=== PATIENT | female | born 1985 | race Caucasian/White ===

== ENCOUNTER 2016-12-06 22:33 | Emergency (ER) | payer OTHER ==
[2016-12-06] MEDS ORDERED: Ondansetron ODT 4 MG TAB ONE (23:26)
--- NOTE | 2016-12-06 23:56 | RAD ---
TWO VIEWS LEFT HIP: Date: 12-06-16 History: Left hip pain. Patient states she did the splits about one week ago and has pain since that time. Pain radiates down leg and to the upper back. Positive . FINDINGS: There is no fracture, dislocation, or other osseous abnormality involving the left hip. There is a f aintly calcified structure overlying the right hemipelvis, likely related to head given patien t's history of positive . IMPRESSION: No acute osseous abnormality left hip. POS: [facility]
--- NOTE | 2016-12-06 23:58 | RAD ---
AP PELVIS: Date: 12-06-16 History: Left hip pain. Patient fell into splits about a week ago and has had pain since that time w ith pain radiating down into leg. Patient reports she fell again tonight and heard a crack. Patient has a positive and reports being 24 weeks gestation. FINDINGS: There is no fracture or dislocation seen. No other osseous abnormality. There is a calcified mass li ke structure overlying the right hemipelvis, likely related to head. IMPRESSION: No acute osseous abnormality. POS: [facility]
== END 2016-12-07 00:08 | disposition home or self-care (01) ==
LOC: ERS 22:33
DX: O9A.212 Injury, poisoning and certain other consequences of external causes complicating pregnancy, second trimester (principal); S76.012A Strain of muscle, fascia and tendon of left hip, initial encounter; O99.342 Other mental disorders complicating pregnancy, second trimester; F32.9 Major depressive disorder, single episode, unspecified; F41.9 Anxiety disorder, unspecified; Z87.891 Personal history of nicotine dependence; Z79.899 Other long term (current) drug therapy; Z79.52 Long term (current) use of systemic steroids; Z3A.24 24 weeks gestation of pregnancy; W01.0XXA Fall on same level from slipping, tripping and stumbling without subsequent striking against object, initial encounter
CPT/HCPCS: 72170; 96372; J2270; Q0162

== ENCOUNTER 2017-01-03 10:33 | Day surgery (SDC) | payer OTHER ==
[2017-01-03] MEDS ORDERED: Acetaminophen 500 MG TAB PO PRN (11:37)
[2017-01-03] MEDS ORDERED: hydrOXYzine 25 MG TAB PO PRN (11:37)
[2017-01-03] MEDS ORDERED: hydrOXYzine 25 MG TAB PO SCH (11:45)
[2017-01-03] MEDS ORDERED: Acetaminophen 500 MG TAB PO SCH (11:45)
--- NOTE | 2017-01-03 11:45 | PDOC.LDHP ---
Labor and Delivery H&P Chief complaint: abdominal pain HPI: 31 yo @ 28.3 c/w LMP with pmhx of substance abuse, laura's disease, and steroid induced abby's disease presents with abdominal pain, bilateral lower right and left quadrant and flank pain since Tuesday. Pt said pain acutely worsened over the pain several days. She also stated she has hx of nephrolithiasis, one of which required a stent. Pt states she has a urology appointment next week but the pain was too severe to wait. She denies dysuria but endorses frequency. She also endorses some blood in her urine last week. States last sexual intercourse was 4 days ago. She used to see Dr. Salvador and recently transferred care to [facility] on December 23. She did not receive a dating ultrasound. Per patient, anatomy scan was normal. She does endorse decreased movement over the past few days. 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 13, monthly menstruation, hx of abnormal pap s/p LEEP 2001 No hx of STI's Current complications: other (Laura's Disease, Substance abuse on clonazepam taper, Steroid induced [place]'s Disease, hx of nephrolithiasis s/p stent placement.) Abnormal US findings: Yes (Vasa previa and placenta previa) Current medications: none (omeprazole 20mg, hydroxyzine 25mg , hydrocortizone 10mg, fludocortizone .1mg, clonazepam .5mg taper, prednisone 10mg, amitryptiline 100mg daiy, zofran 4mg, solu-cortef prn crisis), other Previous surgical history: other (lithotrypsy with stent placement, surgical exploration for ectopic ) Social history: other (substance abuse on clonazepam taper) - Physical Exam Vital signs reviewed and normal: yes Heart: other (tachycardic) Lungs: CTAB Abdomen: gravid (tender to palpation in right and left lower quadrant; CVA tenderness on the left) Extremeties: no edema FHT: category 1 - Assessment 31 yo with pmhx of nephrolithiasis presents with lower abdominal pain and left CVA tenderness. Plan: 1.) Nephrolithiasis vs Pyelonephritis- Renal US and urology consult if indicated UA and cx UDS CBC and CMP Hydroxyzine and tylenol for pain 2.) Care-Pt did not get a dating ultrasound but does report a normal anatomy scan; endorses decreased movement today; no record of PNC labs BPP/NST Anatomy Scan Will attempt to get records from prior physician, if not will order: HIV, RPR, HepBs Ag, Rubella, Blood type and screen, Rh, and antibody - Plan Plan: observation in L&D (see above) <Alxeia Estrada - Last Filed: 01/03/17 12:07> <Maria Loredo - Last Filed: 01/03/17 14:03> Allergies/Adverse Reactions: Allergies Allergy/AdvReac Type Severity Reaction Status Date / Time bupropion [From Wellbutrin] Allergy Verified 01/27/16 02:00 metoclopramide [From Reglan] Allergy Verified 01/03/17 11:48 prochlorperazine Allergy Verified 01/03/17 11:49 [From Compazine] Attending Addendum - Attending Addendum I personally evaluated the patient and discussed the management with Dr. Bryant I agree with the History, Examination, Assessment and Plan documented above with any addition or exceptions noted below. 31 yo female at 28.3 wks by sono (per patient) presents for evaluation of left sided back pain and abdominal pain. Patient states pain feels like a kidney stone. Has passed several in the past. Denies fever, chills, dysuria, hematuria. Reports a past history of microscopic hematuria since childhood with unknown cause. Has been seen at [facility] with 2 negative urine cultures. Awaiting records from Dr. Salvador's office. Repeat sono performed today. Results pending. Concern for low lying placenta vs vasa previa. BPP 8/8. +FM noted by patient. Glucose WNL. A1c WNL. Mild leukocytosis. Awaiting baseline from records. UA positive for leuk , bacteria, and blood. Urine culture pending. Will likely treat for UTI vs pyelo. Awaiting renal/pelvic sono to evalutate for stones, etc. Hx of [place]'s dz. Stable. Borderline potassium. Follows up with Dr. Bundy. Last OV on 12/27/16. Hx of substance use/abuse. UDS positive for known medications. Tobacco use. Awaiting appointment with M on 01/12/17. Continue to monitor. PO hydration. PO pain meds. Awaiting results. Request records. Tomy <Maria Loredo - Last Filed: 01/03/17 14:03>
[2017-01-03 12:31] LABS: Bilirubin Negative (Negative); Blood, Urine Moderate (Negative); Glucose, Urine (Dipstick) Negative (Negative); Ketone, Urine Negative (Negative); Nitrite Negative (Negative); Protein, Urine (Dipstick) Negative (Neg-Trace); Urobilinogen 0.2 mg/dL (0.2-1.0)
[2017-01-03 12:36] LABS: Bacteria/HPF 1+ HPF (None Seen); Hyaline Casts/LPF 0-3 HYALINE CAST LPF (0-3 Hyaline); RBC/HPF 21-50 HPF (0-3); Squamous Epithelial 0-3 HPF (0-3); WBC/HPF 0-3 HPF (0-3)
[2017-01-03 12:40] LABS: Amphetamine Not Detected (NotDetected); Methadone Not Detected (NotDetected); Methamphetamine Not Detected (NotDetected)
[2017-01-03 12:56] LABS: #Eosinphils 0.1 thou/uL (0.0-0.7); #Lymphocytes 1.9 thou/uL (1.20-3.40); #Neutrophils 13.6 thou/uL (1.40-6.50); %Eosinophils 0.7 % (0.0-10.0); %Lymphocytes 11.5 % (21.0-51.0); %Monocytes 6.2 % (0.0-10.0); Hematocrit 31.2 % (36.0-47.0); Mean Platelet Volume 6.6 fL (7.4-10.4); Red Blood Cell (RBC) Count 3.56 mill/uL (4.20-5.40); White Blood Cell (WBC) Count 16.6 thou/uL (4.8-10.8)
[2017-01-03 12:59] LABS: Hemoglobin A1c 5.1 % (4.0-6.0)
[2017-01-03 13:13] LABS: ALT (SGPT) 9 U/L (8-55); AST (SGOT) 10 U/L (5-34); Alkaline Phosphatase 72 U/L (40-150); Anion Gap 12 mmol/L (10-20); BUN (Urea Nitrogen) 5 mg/dL (7.0-18.7); Bilirubin, Total 0.2 mg/dL (0.2-1.2); Calc. Creatinine Clearance 0 mL/min (70-130); Calcium 8.6 mg/dL (7.8-10.44); Carbon Dioxide 23 mmol/L (22-29); Chloride 107 mmol/L (98-107); Estimated GFR-MDRD Greater than 90; Globulin 2.6 g/dL (2.4-3.5); Protein, Total 5.6 g/dL (6.0-8.3)
--- NOTE | 2017-01-03 15:55 | ULT ---
BILATERAL RENAL ULTRASOUND: Date: 01/03/17 HISTORY: 31-year-old female with severe back pain, 28 weeks . History of renal stones. FINDINGS: The right kidney measures 14.0 cm in length and the left kidney measures 12.5 cm in length. No focal mass or hydronephrosis is seen on either side. No shadowing calculi are identified. Cortical echoge nicity and thickness is normal. Urinary bladder is grossly unremarkable. IMPRESSION: Unremarkable exam. POS: [facility]
--- NOTE | 2017-01-03 15:59 | ULT ---
OB ULTRASOUND ULTRASOUND BIOPHYSICAL PROFILE: Date: 01/03/17 HISTORY: Incomplete care. FINDINGS: A single live intrauterine gestation is seen with measurements corresponding to an estimated gestati onal age of 28 weeks/0 days and LEXI at 03/28/17. The estimated weight measures 1140 gm, or 2 l bs and 8 oz. measurements are as follows: BPD: 7.06 cm, 28 weeks/2 days HC: 25.97 cm, 28 weeks/2 days AC: 23.64 cm, 28 weeks/0 days FL: 5.16 cm, 27 weeks/4 days heart rate measures 144 beats/minute. ESME measures 10.4 cm. Placenta is anteriorly located without evidence of placenta previa. Three vessel cord, cord insertion, kidneys, bladder, stomach, four chamber heart, lateral vent ricles, cerebellum, spine, upper/lower extremities visualized. No definite anomalies seen. There is normal tone, breathing, movements, and amniotic fluid. IMPRESSION: 1. Single live intrauterine gestation of 28 weeks/0 days and LEXI at 03/28/17. 2. Ultrasound biophysical profile score is 8 out of 8. POS: [facility]
[2017-01-03] MEDS ORDERED: cefTRIAXone\\ROCEPHIN 1 GM VIAL IM SCH (16:30)
[2017-01-03] MEDS ORDERED: Lidocaine 1% (PF) 30 ML VIAL ONE (16:39)
[2017-01-03] MEDS ORDERED: Cephalexin 250 MG CAP PO SCH (21:00)
== END 2017-01-03 17:15 | disposition home or self-care (01) ==
LOC: L&D/OP 10:33
PROVIDERS: ATTEND Student in an Organized Health Care Education/Training Program
DX: O99.89 Other specified diseases and conditions complicating pregnancy, childbirth and the puerperium (principal); R10.9 Unspecified abdominal pain; M54.9 Dorsalgia, unspecified; Z3A.28 28 weeks gestation of pregnancy; Z79.2 Long term (current) use of antibiotics; Z88.8 Allergy status to other drugs, medicaments and biological substances
CPT/HCPCS: 36415; 76770; 76805; 76815; 76819; 80053; 80306; 81003; 81015; 83036; 85025; 87086; J0696; J2001

== ENCOUNTER 2017-01-15 11:15 | Day surgery (SDC) | payer OTHER ==
[2017-01-15 13:15] VITALS: BMI 25.8
[2017-01-15 13:37] LABS: Amphetamine Not Detected (NotDetected); Methadone Not Detected (NotDetected); Methamphetamine Not Detected (NotDetected)
[2017-01-15 13:39] LABS: Bilirubin Negative (Negative); Blood, Urine Small (Negative); Glucose, Urine (Dipstick) Negative (Negative); Ketone, Urine Negative (Negative); Nitrite Negative (Negative); Protein, Urine (Dipstick) Negative (Neg-Trace); Urobilinogen 0.2 mg/dL (0.2-1.0)
[2017-01-15 13:41] LABS: Bacteria/HPF 2+ HPF (None Seen); Hyaline Casts/LPF 0-3 HYALINE CAST LPF (0-3 Hyaline); Squamous Epithelial 0-3 HPF (0-3); WBC/HPF 0-3 HPF (0-3)
[2017-01-15] MEDS ORDERED: Ondansetron ODT 4 MG TAB PO PRN (13:42)
[2017-01-15] MEDS ORDERED: Acetaminophen 500 MG TAB PO SCH (13:45)
--- NOTE | 2017-01-15 13:56 | PDOC.LDHP ---
Labor and Delivery H&P Chief complaint: contractions, other (headache that feels like her migraine headaches, swelling in her hands and feet, diarrhea, and vision changes) HPI: 31 yo @ 30.0 by LMP(06/19/16)/19.2 week sono with LEXI 03/26/17 presents with a headache and diarrhea for one day. Pt states she gets migraine headaches and this feels similar. She also states that her diarrhea is watery. Pt endorses blurry vision and black spots in her vision. [facility] where she reports an elevated pressure of 150/90s, and had one elevated blood pressure per Dr. Salvador's records that was in the 150s @ 19 weeks. Pt states she was told by the doctors in clinic that she needed to come to the hospital for a preeclampsia workup. Pt reports that she couldn't come until today because she had to take care of her kids. She also endorses decreased movement over the past 2 days. 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13, monthly menstruation, hx of abnormal pap s/p LEEP 2001 No hx of STI's Current complications: other (Inder's Disease, Substance abuse on clonazepam taper, Steroid induced Link's Disease, hx of nephrolithiasis s/p stent placement.) Current medications: none (omeprazole 20mg, hydroxyzine 25mg , hydrocortizone 10mg, fludocortizone .1mg, clonazepam .5mg taper, prednisone 10mg, amitryptiline 100mg daiy, zofran 4mg, solu-cortef prn crisis), other Previous surgical history: other (lithotrypsy with stent placement, surgical exploration for ectopic ) Social history: other (substance abuse on clonazepam taper) Prior Physicians who managed pt: Dr. Salvador: SHAY Bundy (medical registrar at [facility]) Dr. España PCP Current gestational age (weeks): 30 Due date: 01/13/17 Dating criteria: last menstrual period, second trimester ultrasound (19.2wk sono ) Grav: 7 Para: 4 ([id number]) Current complications: other (appears to have chronic hypertension based on review of records from Dr. Salvador and [facility].) Abnormal US findings: No Past Medical History: [place]'s Disease Suspected Chronic Hypertension Current medications: other (see above) Previous surgical history: other (see above) Social history: other - Physical Exam Vital signs reviewed and normal: yes General: NAD, resting Heart: RRR Lungs: CTAB Abdomen: NTTP Extremeties: trace edema FHT: category 2, acceleration absent, variable decelerations, variability present (minimal) [place] contractions every: 8 minutes (only 2 contractions) - Assessment Chronic Hypertension with concern for superimposed preeclampsia with severe features. - Plan Plan: admit to L&D -: Plan: 1.)Chronic Hypertension with concern for superimposed preeclampsia: Urine protein to creatine ratio UA and culture Uric acid CBC and CMP 2.)Headache, likely a migraine -Tylenol -Zofran 3.)Decreased movement- BPP/NST: BPP 8/8 ESME 14 NST: category 2 strip 4.)Susbstance abuse- UDS Alcohol level 5.)New vaginal discharge -VP3 -GC/Chlamydia -UA and culture <Alexia Estrada - Last Filed: 01/15/17 16:03> <Mane Blas - Last Filed: 01/16/17 08:40> Allergies/Adverse Reactions: Allergies Allergy/AdvReac Type Severity Reaction Status Date / Time bupropion [From Wellbutrin] Allergy Verified 01/15/17 13:09 metoclopramide [From Reglan] Allergy Verified 01/15/17 13:09 prochlorperazine Allergy Verified 01/15/17 13:10 [From Compazine] Attending Addendum - Attending Addendum I personally evaluated the patient and discussed the management with Dr. Estrada. I agree with the History, Examination, Assessment and Plan documented above with any addition or exceptions noted below. <Mane Blas - Last Filed: 01/16/17 08:40>
[2017-01-15] MEDS ORDERED: Hydrocortisone 10 mg Tablet PO SCH (14:00)
[2017-01-15 14:18] LABS: #Eosinphils 0.2 thou/uL (0.0-0.7); #Lymphocytes 1.7 thou/uL (1.20-3.40); #Neutrophils 15.4 thou/uL (1.40-6.50); %Basophils 0.1 % (0.0-1.0); %Eosinophils 1.2 % (0.0-10.0); %Lymphocytes 9.1 % (21.0-51.0); %Monocytes 5.4 % (0.0-10.0); Hematocrit 29.9 % (36.0-47.0); Mean Platelet Volume 6.8 fL (7.4-10.4); Red Blood Cell (RBC) Count 3.41 mill/uL (4.20-5.40); White Blood Cell (WBC) Count 18.2 thou/uL (4.8-10.8)
--- NOTE | 2017-01-15 14:44 | ULT ---
SONOGRAPHIC BIOPHYSICAL PROFILE SCORE: OBSTETRIC SONOGRAM LIMITED: HISTORY: Decreased movement. FINDINGS: Good tone and breathing movements are demonstrated. Good gross movement. Amniotic fluid inde x is 14. Multiple transabdominal sonographic views of the gravid uterus show a single intrauterine gestation in a cephalic presentation. The cervix is closed and 3.9 cm in length. Advanced ag e limits anatomic detail. Grade 3 placenta is anterior. Four chamber heart shows motion at 160 amado ts per minute. IMPRESSION: Sonographic biophysical profile score is 8/8. POS: [facility]
[2017-01-15 14:48] LABS: ALT (SGPT) 11 U/L (8-55); AST (SGOT) 10 U/L (5-34); Alkaline Phosphatase 88 U/L (40-150); Anion Gap 15 mmol/L (10-20); BUN (Urea Nitrogen) 8 mg/dL (7.0-18.7); Bilirubin, Total Less than 0.2 mg/dL (0.2-1.2); Calc. Creatinine Clearance 176 mL/min (70-130); Calcium 8.1 mg/dL (7.8-10.44); Carbon Dioxide 20 mmol/L (22-29); Chloride 108 mmol/L (98-107); Estimated GFR-MDRD Greater than 90; Globulin 2.5 g/dL (2.4-3.5); Protein, Total 5.3 g/dL (6.0-8.3); Uric Acid 2.1 mg/dL (2.6-6.0)
[2017-01-15] MEDS ORDERED: diphenhydrAMINE 25 MG in Sodium Chloride 0.9% 50 ML IVPB SCH (15:00)
[2017-01-15] MEDS ORDERED: Fluconazole 100 MG TAB PO SCH (16:30)
--- NOTE | 2017-01-15 20:46 | PDOC.EVN ---
Event Note - Event Note Event Note: Patient's headache resolved with tylenol, relaxation, and dimmed lights. She states the headache feels the exact same as her prior migraines. Preeclampsia workup was negative. Patient's BP remained wnl range. Patient's pulse decreased to 80's after administration of 3L LR's. Encouraged patient to stay hydrated. FHR prior to discharge in the 150's and strip was category II with moderate variability. Urinalysis was done, however, it was clean catch and there is possibility it may have been contaminated. It did show 2+ bacteria and moderate LE's. Patient follows with urology for recurrent UTI's, so she plans to follow with the within the next couple of days as outpatient. Lab results were provided to patient. GC/C pending. Will call patient if results positive. Patient also tested positive for candidal vaginitis. She was treated with fluconazole. Recommend patient be seen by MFM to discuss tapering of benzo's. Patient stable upon discharge with resolution of symptoms.
[2017-01-16] MEDS ORDERED: Fluconazole 100 MG TAB PO SCH (09:00)
[2017-01-16] MEDS ORDERED: FLU VACC QS2017-18 36 mo. & older 0.5 ML SYRINGE IM ONE (09:00)
== END 2017-01-15 17:07 | disposition home or self-care (01) ==
LOC: L&D/OP 11:15
PROVIDERS: ATTEND Student in an Organized Health Care Education/Training Program
DX: O99.89 Other specified diseases and conditions complicating pregnancy, childbirth and the puerperium (principal); R51 Headache; R19.7 Diarrhea, unspecified; R03.0 Elevated blood-pressure reading, without diagnosis of hypertension; O36.8120 Decreased fetal movements, second trimester, not applicable or unspecified; E27.1 Primary adrenocortical insufficiency; O99.282 Endocrine, nutritional and metabolic diseases complicating pregnancy, second trimester; E24.2 Drug-induced Cushing's syndrome; T38.0X5A Adverse effect of glucocorticoids and synthetic analogues, initial encounter; O99.322 Drug use complicating pregnancy, second trimester; Z3A.19 19 weeks gestation of pregnancy; Z79.52 Long term (current) use of systemic steroids; Z79.899 Other long term (current) drug therapy; Z88.8 Allergy status to other drugs, medicaments and biological substances; Z96.0 Presence of urogenital implants; Z98.890 Other specified postprocedural states; Z87.59 Personal history of other complications of pregnancy, childbirth and the puerperium; Z87.891 Personal history of nicotine dependence
CPT/HCPCS: 36415; 59025; 76819; 80053; 80306; 81001; 82570; 84156; 84550; 85025; 87086; 87480; 87491; 87510; 87591; 87660; 96360; 96361; J1200; J7050; Q0162

== ENCOUNTER 2017-07-21 21:27 | Emergency (ER) | payer OTHER | END 2017-07-21 23:43 | disposition left against medical advice (07) | LOC: ERS 21:27 | DX: Z53.21 Procedure and treatment not carried out due to patient leaving prior to being seen by health care provider (principal) ==

== ENCOUNTER 2017-07-22 10:05 | Emergency (ER) | payer OTHER | END 2017-07-22 11:25 | LOC: ERS 10:05 | DX: Z53.21 Procedure and treatment not carried out due to patient leaving prior to being seen by health care provider (principal) ==

== ENCOUNTER 2017-09-04 21:32 | Emergency (ER) | payer OTHER, SELFPAY ==
[2017-09-04] MEDS ORDERED: Ketorolac Tromethamine 60 MG/2 ML VIAL ONE (22:38)
== END 2017-09-04 22:56 | disposition home or self-care (01) ==
LOC: ERS 21:32
DX: M54.42 Lumbago with sciatica, left side (principal); M54.41 Lumbago with sciatica, right side; F41.9 Anxiety disorder, unspecified; F17.210 Nicotine dependence, cigarettes, uncomplicated; G43.909 Migraine, unspecified, not intractable, without status migrainosus; E27.1 Primary adrenocortical insufficiency; N18.9 Chronic kidney disease, unspecified; Z79.899 Other long term (current) drug therapy
CPT/HCPCS: 96372; J1885

== ENCOUNTER 2017-10-26 20:20 | Emergency (ER) | payer MEDICAID, SELFPAY ==
[2017-10-26] MEDS ORDERED: Meclizine HCl 25 MG TAB ONE (21:40)
[2017-10-26] MEDS ORDERED: Acetaminophen 500 MG TAB ONE (21:40)
[2017-10-26] MEDS ORDERED: Ondansetron ODT 4 MG TAB ONE (21:40)
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
[2017-10-26 22:00] LABS: #Lymphocytes 1.8 thou/uL (1.20-3.40); #Monocytes 0.4 thou/uL (0.11-0.59); #Neutrophils 2.5 thou/uL (1.40-6.50); %Basophils 0.3 % (0.0-1.0); %Eosinophils 0.8 % (0.0-10.0); %Lymphocytes 38.2 % (21.0-51.0); %Monocytes 7.8 % (0.0-10.0); %Neutrophils 52.8 % (42.0-75.0); Hemoglobin 14.8 g/dL (12.0-16.0); Mean Corpuscular HGB CONC 35.1 g/dL (32.0-36.0); Mean Corpuscular Hemoglobin 31.5 pg (27.0-31.0); Mean Corpuscular Volume 89.7 fL (78.0-98.0); Mean Platelet Volume 7.8 fL (7.4-10.4); Platelet Count 162 thou/uL (130-400); RBC Distribution Width 12.2 % (11.5-14.5); Red Blood Cell (RBC) Count 4.69 mill/uL (4.20-5.40); White Blood Cell (WBC) Count 4.8 thou/uL (4.8-10.8)
[2017-10-26 22:20] LABS: ALT (SGPT) 11 U/L (8-55); AST (SGOT) 13 U/L (5-34); Albumin 4.2 g/dL (3.5-5.0); Alkaline Phosphatase 72 U/L (40-150); Anion Gap 12 mmol/L (10-20); BUN (Urea Nitrogen) 10 mg/dL (7.0-18.7); Bilirubin, Total 0.9 mg/dL (0.2-1.2); Calc. Creatinine Clearance 0 mL/min (70-130); Calcium 9.1 mg/dL (7.8-10.44); Carbon Dioxide 22 mmol/L (22-29); Chloride 110 mmol/L (98-107); Estimated GFR-MDRD 81; Globulin 2.4 g/dL (2.4-3.5); Glucose 89 mg/dL (70-105); Magnesium 1.7 mg/dL (1.6-2.6); Potassium 3.4 mmol/L (3.5-5.1); Protein, Total 6.6 g/dL (6.0-8.3); Sodium 141 mmol/L (136-145)
[2017-10-26 22:48] LABS: Bilirubin Small (Negative); Blood, Urine Small (Negative); Clarity CLOUDY (Clear); Glucose, Urine (Dipstick) Negative (Negative); Leukocyte Small (Negative); Nitrite Negative (Negative); Pregnancy Test - Urine (BHCG) Negative (Negative); Pregu Control Background? CLEAR/WHITE (CLR/WHITE); Pregu Control Bar Appear? YES (CONTROL BAR); Protein, Urine (Dipstick) 30 mg/dL (Neg-Trace); Specific Gravity 1.033 (1.002-1.036); Specific Gravity, Urine 1.023 (1.002-1.036)
[2017-10-26 22:49] LABS: Bacteria/HPF 3+ HPF (None Seen); WBC/HPF 21-50 HPF (0-3)
[2017-10-26 22:50] LABS: Pathc Cast-AUWi Flag 9.44 (0-2.49)
[2017-10-26 22:51] LABS: Hyaline Casts/LPF 0-3 HYALINE CAST LPF (0-3 Hyaline)
[2017-10-26] MEDS ORDERED: Ketorolac Tromethamine 30 MG/ML VIAL ONE (22:56)
[2017-10-26] MEDS ORDERED: Potassium Chloride 20 MEQ TAB ONE (22:56)
[2017-10-26] MEDS ORDERED: cefTRIAXone\\ROCEPHIN 1 GM VIAL ONE (23:20)
[2017-10-26] MEDS ORDERED: Cyclobenzaprine 10 MG TAB ONE (23:45)
[2017-10-26] MEDS ORDERED: methylPREDNISolone Sod Succ/PF 125 MG/2 ML VIAL ONE (23:45)
== END 2017-10-27 00:20 | disposition home or self-care (01) ==
LOC: ERS 20:20
DX: R55 Syncope and collapse (principal); E27.1 Primary adrenocortical insufficiency; N39.0 Urinary tract infection, site not specified; G43.909 Migraine, unspecified, not intractable, without status migrainosus; Z87.891 Personal history of nicotine dependence; Z79.899 Other long term (current) drug therapy
CPT/HCPCS: 36415; 71046; 80053; 81003; 81015; 81025; 83735; 84100; 85025; 93005; 96361; 96365; 96375; J0696; J1885; J2930; Q0162

== ENCOUNTER 2018-01-26 22:45 | Observation (INO) | payer OTHER, SELFPAY ==
[2018-01-26 23:40] LABS: #Lymphocytes 0.7 thou/uL (1.20-3.40); #Monocytes 0.2 thou/uL (0.11-0.59); #Neutrophils 6.3 thou/uL (1.40-6.50); %Basophils 0.1 % (0.0-1.0); %Eosinophils 0.1 % (0.0-10.0); %Lymphocytes 10.4 % (21.0-51.0); %Monocytes 2.2 % (0.0-10.0); %Neutrophils 87.2 % (42.0-75.0); Hemoglobin 15.3 g/dL (12.0-16.0); Mean Corpuscular HGB CONC 34.5 g/dL (32.0-36.0); Mean Corpuscular Hemoglobin 31.4 pg (27.0-31.0); Mean Corpuscular Volume 90.9 fL (78.0-98.0); Mean Platelet Volume 7.2 fL (7.4-10.4); Platelet Count 235 thou/uL (130-400); RBC Distribution Width 12.2 % (11.5-14.5); Red Blood Cell (RBC) Count 4.87 mill/uL (4.20-5.40); White Blood Cell (WBC) Count 7.2 thou/uL (4.8-10.8)
[2018-01-26] MEDS ORDERED: Lorazepam 2 MG/ML VIAL ONE (23:45)
[2018-01-26 23:53] LABS: BHCG - Serum Negative (NEGATIVE); Pregs Control Background? CLEAR/WHITE (CLR/WHITE); Pregs Control Bar Appear? YES (CONTROL BAR)
[2018-01-27 00:04] LABS: ALT (SGPT) 12 U/L (8-55); AST (SGOT) 12 U/L (5-34); Albumin 4.7 g/dL (3.5-5.0); Alkaline Phosphatase 75 U/L (40-150); Anion Gap 13 mmol/L (10-20); BUN (Urea Nitrogen) 8 mg/dL (7.0-18.7); Bilirubin, Total 0.5 mg/dL (0.2-1.2); Calc. Creatinine Clearance 0 mL/min (70-130); Calcium 9.5 mg/dL (7.8-10.44); Carbon Dioxide 21 mmol/L (22-29); Chloride 108 mmol/L (98-107); Estimated GFR-MDRD Greater than 90; Globulin 2.7 g/dL (2.4-3.5); Glucose 125 mg/dL (70-105); Potassium 3.8 mmol/L (3.5-5.1); Protein, Total 7.4 g/dL (6.0-8.3); Sodium 138 mmol/L (136-145)
[2018-01-27] MEDS ORDERED: Ketorolac Tromethamine 30 MG/ML VIAL ONE (00:42)
[2018-01-27 00:43] LABS: Bilirubin Negative (Negative); Blood, Urine Large (Negative); Clarity CLOUDY (Clear); Glucose, Urine (Dipstick) Negative (Negative); Leukocyte Trace (Negative); Nitrite Negative (Negative); Protein, Urine (Dipstick) Trace mg/dL (Neg-Trace); Specific Gravity, Urine 1.021 (1.002-1.036); Urobilinogen 0.2 mg/dL (0.2-1.0); pH, Urine 6.5 (5.0-9.0)
[2018-01-27 00:45] LABS: Bacteria/HPF Rare-Few HPF (None Seen); Hyaline Casts/LPF 0-3 HYALINE CAST LPF (0-3 Hyaline); Pathc Cast-AUWi Flag 0.29 (0-2.49); RBC/HPF GREATER THAN 50-TNTC HPF (0-3)
[2018-01-27] MEDS ORDERED: levETIRAcetam In NaCl (Iso-Os) 1,000 MG in Premix Bag 1 BAG IVPB SCH (01:00)
[2018-01-27] MEDS ORDERED: RIZATRIPTAN BENZOATE 5 MG PO PRN (02:45)
[2018-01-27] MEDS ORDERED: SUMAtriptan Succinate 50 MG TAB PO PRN (03:04)
[2018-01-27] MEDS ORDERED: Lorazepam 2 MG/ML VIAL SLOW IVP PRN ×2 (03:30→04:31)
[2018-01-27 03:42] VITALS: BMI 19.3
--- NOTE | 2018-01-27 03:50 | PDOC.FPRHP ---
- History of Present Illness Chief Complaint: Seizure vs. syncope History of Present Illness: This is a 32 yo female with a pmh of Bipolar type 1, migraines, addisons disease who presents to the ED with a cc of seizure like activity. Pt. states that she has started having episodes with loss of consciousness. She reports 3 episodes that were witnessed and reports she falls downs and shakes. Following these episodes, she appears confused to family and often goes to lay down. The episodes last for about 1 minute. She denies loss of bowel or bladder control but did bite her lip. She reports these episodes starting in the last 2-3 weeks. She reports landing on her back on one occasion. She also showed me a bruise on her hand she got when she caught herself prior to one of her episodes. She reports dizziness as well. She believes that these episodes are related to her addisons and wonders if it is due to poor steroid control. ED Course: Rocephin 1g, keppra 1g, toradol 30 mg, ativan 1mg - Allergies/Adverse Reactions Allergies Allergy/AdvReac Type Severity Reaction Status Date / Time bupropion [From Wellbutrin] Allergy Verified 01/27/18 02:46 metoclopramide [From Reglan] Allergy Verified 01/27/18 02:46 prochlorperazine Allergy Verified 01/27/18 02:46 [From Compazine] - Home Medications Medication Instructions Recorded Confirmed Type Hydrocortisone [Cortef] 10 mg PO BID 01/15/17 01/27/18 History Ferrous Fumarate [Ferretts] 325 mg PO DAILY 01/27/18 01/27/18 History Lamotrigine [lamoTRIgine] 200 mg PO DAILY 01/27/18 01/27/18 History Lurasidone [Latuda] 20 mg PO DAILY 01/27/18 01/27/18 History Rizatriptan Benzoate [Rizatriptan] 5 mg PO Q2HR PRN 01/27/18 01/27/18 History - History PMHx: Addisons??, PSHx: Exploratory lap for possible ectopic in 2017, lithotripsy 2017 FHx: Hep c, Borderline personality disorder, schizophrenia Social: Denies CORTEZ, abused alprazolam in the past - Review of Systems General: reports: fatigue. denies: fever/chills, weight/appetite/sleep changes , night sweats Eyes: denies: eye pain, vision changes ENT: denies: nasal congestion, rhinorrhea Respiratory: denies: cough, congestion, shortness of breath Cardiovascular: denies: chest pain, palpitation, edema Gastrointestinal: reports: nausea, vomiting, abdominal pain Genitourinary: denies: incontinence Skin: denies: rashes, lesions Musculoskeletal: reports: pain, tenderness (Her back primarily) Neurological: reports: syncope, seizure (Questionable). denies: numbness Psychological: reports: anxiety, depression - Vital signs BP: 112/83 HR: 81 RR: 14 Tmax:97.7 Pox: 99% on ra Wt: 56.7 kg - Physical Exam Constitutional: NAD, awake, alert and oriented, well developed HEENT: normocephalic and atraumatic, PERRLA, EOMI, conjunctiva clear, MMM Neck: supple, FROM, trachea midline Chest: no-tender to palpation, no lesions Heart: RRR, normal S1/S2, no murmurs/rubs/gallops Lungs: CTAB, no respiratory distress, good air movement Abdomen: soft, bowel sounds present, no masses/distention, other (tenderness to palpation of left upper and lower region, no rebound or gaurding) Musculoskeletal: ROM grossly normal, other (pain with palpation of lower back) Neurological: no focal deficit, CN II-XII intact Skin: no rash/lesions, good turgor, capillary refill <2 seconds Heme/Lymphatic: no unusual bruising or bleeding Psychiatric: normal mood and affect FMR H&P: Results - Labs Result Diagrams: 01/26/18 23:25 01/26/18 23:25 Lab results: WBC 7.2 thou/uL (4.8-10.8) 01/26/18 23:25 Hgb 15.3 g/dL (12.0-16.0) 01/26/18 23:25 Hct 44.3 % (36.0-47.0) 01/26/18 23:25 MCV 90.9 fL (78.0-98.0) 01/26/18 23:25 Plt Count 235 thou/uL (130-400) 01/26/18 23:25 Neutrophils % 87.2 % (42.0-75.0) H 01/26/18 23:25 Sodium 138 mmol/L (136-145) 01/26/18 23:25 Potassium 3.8 mmol/L (3.5-5.1) 01/26/18 23:25 Chloride 108 mmol/L (98-107) H 01/26/18 23:25 Carbon Dioxide 21 mmol/L (22-29) L 01/26/18 23:25 BUN 8 mg/dL (7.0-18.7) 01/26/18 23:25 Creatinine 0.71 mg/dL (0.6-1.1) 01/26/18 23:25 Glucose 125 mg/dL (70-105) H 01/26/18 23:25 Calcium 9.5 mg/dL (7.8-10.44) 01/26/18 23:25 Total Bilirubin 0.5 mg/dL (0.2-1.2) 01/26/18 23:25 AST 12 U/L (5-34) 01/26/18 23:25 ALT 12 U/L (8-55) 01/26/18 23:25 Alkaline Phosphatase 75 U/L (40-150) 01/26/18 23:25 Serum Total Protein 7.4 g/dL (6.0-8.3) 01/26/18 23:25 Albumin 4.7 g/dL (3.5-5.0) 01/26/18 23:25 Urine Ketones Trace mg/dL (Negative) H 01/27/18 00:23 Urine Blood Large (Negative) H 01/27/18 00:23 Urine Nitrite Negative (Negative) 01/27/18 00:23 Ur Leukocyte Esterase Trace (Negative) H 01/27/18 00:23 Urine RBC GREATER THAN 50-TNTC HPF (0-3) H 01/27/18 00:23 Urine WBC 7-10 HPF (0-3) H 01/27/18 00:23 Ur Squamous Epith Cells 11-20 HPF (0-3) H 01/27/18 00:23 Urine Bacteria Rare-Few HPF (None Seen) 01/27/18 00:23 - Radiology Interpretation Chest x-ray Status: image reviewed by me (No acute cardiopulmonary processes, no grossly abnormal bony processes) FMR H&P: A/P - Problem List (1) Foard's disease Current Visit: Yes Status: Acute Code(s): E27.1 - PRIMARY ADRENOCORTICAL INSUFFICIENCY (2) Syncopal episodes Current Visit: Yes Status: Acute Code(s): R55 - SYNCOPE AND COLLAPSE (3) Bipolar 1 disorder Current Visit: Yes Status: Acute Code(s): F31.9 - BIPOLAR DISORDER, UNSPECIFIED (4) Migraine Current Visit: Yes Status: Acute Code(s): G43.909 - MIGRAINE, UNSP, NOT INTRACTABLE, WITHOUT STATUS MIGRAINOSUS - Plan This is a 32 yo female with a pmh of Foard's, bipolar 1, and migraines Syncope vs. Seizure -Admit to stroke obs -pt given keppra and ativan in ed -Obtain orthostatics -Obtain prolactin level if pt. has a seizure Foard's disease -Continue current regiment of hydrocortisone 10mg BID -contact communications editor Dr. Bundy regarding diagnosis and treatment plan -Per Dr. Loredo's latest note, pt has not followed up with Dr. Bundy to be reevaluated for laura's after her last Bipolar 1 -Continue home latuda and lamotrigine Migraines -continue home triptan Acute pain related to syncope -Hansa tylenol -PRN tramadol -Hx of xanax abuse, use caution with medications Code: full Prophylaxis: none Family: none at bedside Disposition: Home in 1-2 days FMR H&P: Upper Level - Pertinent history 32 yo female who presented to the ED for multiple complaints. She reports that over the last couple weeks she has been having episodes of spacing out where she is non-responsive for about a minute. Sometimes she shakes, sometimes she bites her tongue. These occur almost daily. Says they have been going on for a couple weeks. No bowel or bladder incontinence. Reports she currently has back pain from falling today when she had one of these episodes. Patient has questionable history of Addisons disease. She was initially meant to be checked out for adrenal insufficiency in [address] Bundy, but was found to be . During , patient was seen multiple times in L&D at [facility]. During 1 hospitalization, she had tachycardia and was evaluated with no significant findings. During that visit, we had conversations with Dr. Bundy who informed us that the patient was overusing her steroids and taking a stress dose when she was feeling stressed. She followed up with Dr. Bundy about 4 months ago, and had labs done, but reports she did not ever hear the results. Says she plans to call Dr. Barnes office tomorrow to schedule an appointment. At that appointment 4 months ago, they adjusted her steroids to hydrocoarisone 20mg daily. In ER, patient received rocephin, keppra, toradol, ativan. - Pertinent findings 113/72 HR: 74 RESP: 18 97% on RA TEMP: 97.7 GEN: NAD, resting in bed CARD: RRR, no m/g/r PULM: CTAB NEURO: no focal deficits - Plan Date/Time: 01/27/18 0344 #possible seizure -has been loaded with keppra -she is also on lamotrigine, which is what makes this picture much more unusual -recommend getting a neurology consult in the AM to discuss -review of clinic records shows that this had been going on for a couple weeks prior to 01/05/18 clinic visit #adrenal insufficiency -will continue to treat on current dose of hydrocortisone until business hours where we can possibly discuss the case with Dr. Bundy #questionable UTI -patient received rocephin in the ED -UA shows squamous epithelial cells indicating contaminate -unless patient begins to complain of dysuria, recommend holding off on antibiotics I, Arnav Alfaro DO, have evaluated this patient and agree with findings/plan as outlined by integrated marketing intern resident. Pertinent changes/additions are listed here. Attending Addendum - Attending Addendum Date/Time: 01/27/18 1021 I personally evaluated the patient and discussed the management with Dr. Hathaway. I agree with the History, Examination, Assessment and Plan documented above with any addition or exceptions noted below. The patient presented with possible seizure-like activity however there is report that she gets up and ambulates during these episodes and has been known to get up and lock her doors during the episodes. She does have shaking at times. She is able to feel the episodes coming on. Pt is feeling better this morning. Will get MRI brain. Consult neurology. This sounds less like seizures and more like a dissociative state. Will monitor for repeat seizure activity. Also ordering EEG. Continue supportive care.
[2018-01-27] MEDS: traMADol HCl 50 MG TAB PO PRN ×3 (04:01→21:27)
[2018-01-27] MEDS: Acetaminophen 500 MG TAB PO SCH ×3 (06:16→19:11)
--- NOTE | 2018-01-27 07:55 | RAD ---
ONE VIEW CHEST: HISTORY: Syncope. COMPARISON: 10/26/2017. FINDINGS: Normal cardiac silhouette. The pulmonary vessels and hilum are normal. Costophrenic angles are pranav r. No consolidation or mass. No pneumothorax or osseous abnormalities. IMPRESSION: No acute cardiopulmonary process. POS: [facility]
[2018-01-27] MEDS ORDERED: lamoTRIgine 100 MG TAB PO SCH (09:00)
[2018-01-27] MEDS: Hydrocortisone 10 mg Tablet PO SCH ×2 (09:24→21:27)
[2018-01-27] MEDS: Ferrous Sulfate 325 MG TAB PO SCH (09:24)
[2018-01-27] MEDS: Lurasidone HCl 40 MG TABLET PO SCH (09:28)
[2018-01-27 09:38] LABS: Cocaine Metabolite Screen Not Detected (NotDetected); Medtox Reader # READER 4; Methamphetamine Not Detected (NotDetected); Opiate Screen Not Detected (NotDetected); Phencyclidine (PCP) Not Detected (NotDetected); THC/Cannabinoid Screen Detected (NotDetected)
[2018-01-27 09:39] LABS: Amphetamine Not Detected (NotDetected); Barbiturates Screen Not Detected (NotDetected); Benzodiazepine Screen Detected (NotDetected); Medtox Control Line Valid? VALID (VALID); Methadone Not Detected (NotDetected); Oxycodone Screen Not Detected (NotDetected); Tricyclic Screen Not Detected (NotDetected)
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
[2018-01-27] MEDS: lamoTRIgine 100 MG TAB PO SCH (21:28)
[2018-01-27] MEDS: Ondansetron ODT 4 MG TAB PO PRN (23:06)
[2018-01-28] MEDS: Acetaminophen 500 MG TAB PO SCH ×2 (00:17→05:56)
--- NOTE | 2018-01-28 04:48 | CON ---
DATE OF CONSULTATION: 01/27/2018 CHIEF COMPLAINT: Seizure disorder. HISTORY OF PRESENT ILLNESS: The patient herself gave her medical history. The patient reports that she has been in her usual state of health until about 2-3 weeks ago when she started to have episodes, but more resembling easily. At baseline, the patient has chronic migraine headaches and also Hemphill's disease. The patient used to live in [place] and moved here few months ago and the patient describes these episodes as completely losing consciousness and she does not remember anything before or after the event. Last time she fell 2-3 times in 1 day. Her right side, she feels subjective sensation of weakness on the right side post-event. She was cleaning up in the kitchen and her daughter came and told her that she was shaking on the floor and she asked her if she was doing okay. Her [id number] who was at home also recalled and watched her to have an episode and he told her that she was disoriented and walking around and mumbling and she falls and loses consciousness and has tonic clonic seizures and this entire episode last one 1 minute. The patient has no incontinence, but for the past few days after these events, she has experienced urgency of urination. She bit her lower lip yesterday and she also bit her lower lip when she first had an event. She also has migraine headaches and stress headaches. She has been having migraine headaches since age 7 and patient reports he used to get sick 4 days a week and had to discontinue college. He has combination headache and was once told that she has occipital neuralgia as well. She has been seeing a neurologist at [facility] for her migraine headaches, but he moved and she is no longer under any neurologist care. He has a prescription for Maxalt. Years ago, she was given Topamax, which did help her for a little bit. She gets almost daily headaches and she cannot sleep well. She also feels she sees floaters in front of her eyes. She tried Tylenol, Phenergan, Zofran, aspirin for her headaches. These headaches are described as bifrontal headaches radiating to the back of the neck at that time. She has occasional occipital headaches with neck stiffness and she has photophobia, phonophobia, and nausea and vomiting. Headache can last the whole day sometimes. Triggers of the headache are red wine and cheese. PAST MEDICAL HISTORY: The patient has ADHD, bipolar disorder and Hemphill's disease. PAST SURGICAL HISTORY: The patient had a kidney stone removal in the past by physician in [facility] and patient also has had exploratory laparoscopy for possible ectopic in 2017 and following that she actually had a healthy child following that . FAMILY HISTORY: The patient's father is 68 or 70. She is not in touch with him that much. Her mother is 62 and patient has a 28-year-old full sister and she has 3 half-brothers and a half-sister. Her full sister and two half- brothers have migraine headaches. One of the brothers also has Hemphill's disease. One brother has bipolar disorder. Her mother has history of migraines. Her father also has history of migraines. On her maternal side, there is history of seizures, but she is not sure who has seizures. The patient has 5 children, 2 boys and 3 girls, ages 12, 8, 4, 2, and 1, all are healthy. SOCIAL HISTORY: The patient lives with her . She drinks occasional alcohol. She does not smoke. REVIEW OF SYSTEMS: Pulmonary: No breathing problems. Gastrointestinal: No nausea or vomiting. Genitourinary: Increased urinary frequency with urgency. Neurologic: Positive for headaches and seizures. Dermatologic: Negative. Endocrine: Positive for Hemphill's disease. Hematologic: Negative for anemia. Cardiovascular: Negative for shortness of breath or chest pain. CURRENT MEDICATIONS: At home, patient takes hydrocortisone 10 mg b.i.d., ferrous fumarate 325 mg per day, Lamictal 200 mg per day, Latuda 20 mg per day, rizatriptan 5 mg as needed. LABORATORY WORKUP: White count 7.2, hematocrit 44.3, hemoglobin 15.3, platelets 235. Chemistries: Sodium 138, potassium 3.8, chloride 108, bicarbonate 21, BUN 8, creatinine 0.71, glucose 125. TSH 0.8854. Serum is negative. Cortisol level 1.50. Urine positive for leukocyte esterase, rbc's and elevated white count and squamous epithelial cells and ketones and blood. Toxicology: Positive for cannabinoids and benzodiazepines and her MRI of the brain was normal. EEG, we need to review the report. PHYSICAL EXAMINATION: VITAL SIGNS: Blood pressure 101/79, pulse rate is 60, temperature 98.2, respiratory rate is 16. GENERAL APPEARANCE: Well-built, well-nourished lady comfortable in bed, very talkative. CHEST: Clear vesicular breathing. CARDIOVASCULAR: S1, S2 heard. No murmurs. ABDOMEN: Soft, nontender, no organomegaly noted. PULMONARY: Normal vesicular breathing. NEUROLOGICAL: Higher intellectual functions, appropriate conversation. Normal orientation to time, place and person. Cranial nerve examination: Normal extraocular movements. Pupils reactive to light at 4+ bilaterally and normal sensation of face bilaterally. Tongue midline, no atrophy noted. Normal strength of facial muscles bilaterally. Normal hearing to finger rub. Normal elevation of palate bilaterally and tongue midline. Motor examination: Bulk normal, tone normal, strength 5/5 in upper and lower extremities in iliopsoas, hamstrings, quadriceps, ankle dorsiflexion, plantar flexion, deltoid, biceps, triceps, wrist extension and flexion bilaterally and finger extension and flexion bilaterally and deep tendon reflexes were 2+ throughout and they were brisk. Sensory: Normal touch and proprioception and coordination. Cerebellar : Normal [id number] and cihc-dj-fizd. Gait not tested. IMPRESSION: The patient is a 32-year-old lady with Hemphill's disease. She has had several episodes where she is passing out and has tonic-clonic seizure activity and it is unclear how many events she is having. Although, she has been currently admitted with 2-3 episodes; however, symptoms have been present for at least 2-3 weeks now and these episodes are lasting approximately 1 minute not associated with incontinence. She has reported that she bit her lower lip yesterday. She has urinary urgency as well and she chronic migraine headaches and bipolar disorder. Her neurological examination is normal. Laboratory evaluation is significant for cannabinoid exposure and benzodiazepine use and cannabinoids exposure might have triggered these events in a patient who has Inder's disease remains to be investigated. This could be due to fluctuation in her cortisol levels. She needs further workup as far as her Inder's disease with concern. Neurologically, her examination is normal and she is back to baseline. RECOMMENDATIONS Rather than leave her on Keppra, which can cause mood swings. I think it is best to increase her dosage on her Lamictal to manage her seizures for now and continue rizatriptan as needed for her migraine headaches. She will need to see Dr. Mcgee as an outpatient for further management of both her seizure disorder as well as migraine headache. I will review her EEG as soon as able to access the software. Please call me if you have any further questions. KARLA
--- NOTE | 2018-01-28 06:24 | PDOC.FM ---
- Subjective Subjective: Ms. Chan is resting comfortably in bed, no events overnight. denies any syncope or seizure like activity. - Objective Vital Signs & Weight: Vital Signs (12 hours) Temp Pulse Resp BP BP Pulse Ox 01/28/18 03:54 98.2 F 47 L 16 95/67 100 01/28/18 03:43 98 01/28/18 01:08 98.1 F 45 L 16 101/65 98 01/28/18 00:16 98.4 F 48 L 16 111/74 99 01/27/18 21:15 97.8 F 52 L 16 99/71 99 Weight Weight 57.516 kg I&O: 01/26/18 01/27/18 01/28/18 06:59 06:59 06:59 Intake Total 50 780 Balance 50 780 Result Diagrams: 01/26/18 23:25 01/26/18 23:25 <Eliazar Sahu - Last Filed: 01/28/18 07:44> - Objective Vital Signs & Weight: Vital Signs (12 hours) Temp Pulse Resp BP BP Pulse Ox 01/28/18 07:55 98.5 F 63 16 109/69 99 01/28/18 03:54 98.2 F 47 L 16 95/67 100 01/28/18 03:43 98 01/28/18 01:08 98.1 F 45 L 16 101/65 98 01/28/18 00:16 98.4 F 48 L 16 111/74 99 Weight Weight 57.516 kg I&O: 01/27/18 01/28/18 01/29/18 06:59 06:59 06:59 Intake Total 50 780 300 Balance 50 780 300 Result Diagrams: 01/26/18 23:25 01/26/18 23:25 <Elsa Hilton - Last Filed: 01/28/18 10:44> Phys Exam - Physical Examination Constitutional: NAD HEENT: moist MMs Neck: no JVD Gastrointestinal: soft, no distention Musculoskeletal: no edema, pulses present Neurological: non-focal, moves all 4 limbs Psychiatric: normal affect Skin: no rash <Eliazar Sahu - Last Filed: 01/28/18 07:44> Dx/Plan (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 Seizure -Admit to stroke obs -pt given keppra and ativan in ed, increase - orthostatics, MRI neg. EEG follow up outpt with Dr. Mcgee -Obtain prolactin level if pt. has a seizure Todd's disease -Continue current regiment of hydrocortisone 10mg BID -pt has indeed not followed up with Dr. 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 Sahu. I agree with the History, Examination, Assessment and Plan documented above with any addition or exceptions noted below. Patient was seen by neurology yesterday and her lamictal was increased. The patient has not had any episodes overnight. Will d/c home. Pt's assistant wrestling coach was contacted yesterday and she hasn't been seen in a year. Pt will need to f/u with neurology and endocrinology as an outpt. <Elsa Hilton - Last Filed: 01/28/18 10:44>
[2018-01-28 07:56] VITALS: BP 109/69; TEMP 98.5
[2018-01-28] MEDS: Hydrocortisone 10 mg Tablet PO SCH (09:52)
[2018-01-28] MEDS: Ferrous Sulfate 325 MG TAB PO SCH (09:52)
[2018-01-28] MEDS: lamoTRIgine 100 MG TAB PO SCH (09:52)
[2018-01-28] MEDS: traMADol HCl 50 MG TAB PO PRN (09:53)
[2018-01-28] MEDS: Lurasidone HCl 40 MG TABLET PO SCH (09:53)
[2018-01-28] MEDS: Ondansetron ODT 4 MG TAB PO PRN (10:41)
--- NOTE | 2018-01-28 13:27 | PRG ---
DATE OF SERVICE: 01/28/2018 CHIEF COMPLAINT: Seizures. INTERVAL HISTORY: The patient has done well during this hospitalization. She remains on slightly hi gher doses of her Lamictal. No further seizures are noted. LABORATORY WORKUP: No new labs are recorded. PHYSICAL EXAMINATION: VITAL SIGNS: Blood pressure 109/69, temperature 98.5, pulse 63. GENERAL APPEARANCE: A well-built, well-nourished lady, who seems to be quite active at this time. NEUROLOGICAL: Higher intellectual functions normal. Cranial nerves, no facial asymmetry noted. Mot or examination: Bulk normal, tone normal, strength is normal. Gait examination is normal. IMPRESSION: Patient with bipolar disorder, seizure disorder, and Inder's disease. She seems to ugalde ve remained stable following these seizure-like events with which she presented to the hospital. Her MRI scan is normal. At this time, she is managed with higher dose of Lamictal, which can be used cheng th for bipolar and seizure control. RECOMMENDATIONS: I advised the patient to see Dr. Mcgee for management of her headaches and seizur e disorder. She is okay for discharge from the neuro standpoint.
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
--- NOTE | 2018-01-31 08:42 | EEG ---
Referring Physician: CARLINE BAHENA EEG # [id number] TEST TYPE: ROUTINE PORTABLE INPATIENT REPORT: AN EEG USING THE INTERNATIONAL TEN-TWENTY SYSTEM OF ELECTRODE PLACEMENT WAS PERFORMED. The waking background is a 10 hertz alpha frequency. The patient remained awake throughout the study. Photic stimulation was unremarkable. No epileptiform features were seen. IMPRESSION: THIS IS A NORMAL AWAKE EEG. Rattling Machine Tender: ADELE Washer And Crusher Tender: JESSA.VICKIE ACOSTA
--- NOTE | 2018-02-02 15:39 | EKG ---
Test Reason : Blood Pressure : / mmHG Vent. Rate : 072 BPM Atrial Rate : 072 BPM P-R Int : 158 ms QRS Dur : 090 ms QT Int : 404 ms P-R-T Axes : 045 047 049 degrees QTc Int : 442 ms Normal sinus rhythm Nonspecific T wave abnormality Abnormal ECG Confirmed by MARY FERRER D.O. ([id number]), electronic news gathering editor VISH SALTER ([id number]) on 02/02/2018 3:38:55 PM Referred By: Confirmed By:MARY FERRER D.O.
== END 2018-01-28 11:13 | disposition home or self-care (01) ==
LOC: ERS 22:45 → 2SE 01-27 02:28
PROVIDERS: ADMIT Family Medicine; ATTEND Family Medicine
DX: R55 Syncope and collapse (principal); F31.9 Bipolar disorder, unspecified; G43.909 Migraine, unspecified, not intractable, without status migrainosus; E27.1 Primary adrenocortical insufficiency; Z79.899 Other long term (current) drug therapy; Z88.8 Allergy status to other drugs, medicaments and biological substances
CPT/HCPCS: 36415; 36416; 70553; 71045; 80053; 80306; 81003; 81015; 82024; 82533; 84244; 84443; 84703; 85025; 87086; 93005; 95816; 95819; 96365; 96375; G0378; J1885; J1953; J2060; Q0162

== ENCOUNTER 2018-03-28 19:56 | Emergency (ER) | payer OTHER ==
--- NOTE | 2018-03-28 20:57 | RAD ---
RADIOGRAPH LEFT KNEE FOUR VIEWS: 03/28/18 HISTORY: 32-year-old female with acute left knee pain. FINDINGS: Joint spaces are maintained without erosions or osteophytes. No moderate sized or large joint effusio n. There is edema in Hoffa's fat pad. No fracture, periostitis, permeative lesion, osteolytic lesion, or osteoblastic lesion. IMPRESSION: 1. No osseous abnormality. 2. Edema in Hoffa's fat pad could indicate cartilaginous or ligamentous injury. Consider noncont rast MRI of the knee on an elective, outpatient basis, if symptoms do not improve. POS: [facility]
[2018-03-28] MEDS ORDERED: Morphine 4 MG/ML VIAL ONE (21:06)
== END 2018-03-28 21:56 | disposition home or self-care (01) ==
LOC: ERS 19:56
DX: S83.412A Sprain of medial collateral ligament of left knee, initial encounter (principal); F41.9 Anxiety disorder, unspecified; F31.9 Bipolar disorder, unspecified; G43.909 Migraine, unspecified, not intractable, without status migrainosus; E27.1 Primary adrenocortical insufficiency; Z87.442 Personal history of urinary calculi; X50.1XXA Overexertion from prolonged static or awkward postures, initial encounter
CPT/HCPCS: 96372; J2270

== ENCOUNTER 2018-04-05 21:26 | Emergency (ER) | payer OTHER ==
--- NOTE | 2018-04-05 22:14 | RAD ---
FOUR VIEWS LEFT KNEE 04/05/18 COMPARISON: None. HISTORY: Left knee pain. FINDINGS: No displaced fracture or evidence of dislocation. No significant knee joint effusion. IMPRESSION: No acute osseous abnormality. POS: [facility]
[2018-04-05] MEDS ORDERED: Ketorolac Tromethamine 30 MG/ML VIAL ONE (22:50)
== END 2018-04-05 23:00 | disposition home or self-care (01) ==
LOC: ERS 21:26
DX: M25.562 Pain in left knee (principal); F41.9 Anxiety disorder, unspecified; F31.9 Bipolar disorder, unspecified; E27.1 Primary adrenocortical insufficiency; G43.909 Migraine, unspecified, not intractable, without status migrainosus; X50.1XXA Overexertion from prolonged static or awkward postures, initial encounter
CPT/HCPCS: 96372; J1885

== ENCOUNTER 2018-04-19 08:21 | Outpatient (CLI) | payer OTHER ==
--- NOTE | 2018-04-19 10:36 | MRI ---
MRI LEFT KNEE: Date: 04/19/18 PROVIDED CLINICAL HISTORY: Left knee pain. FINDINGS: The anterior cruciate ligament, posterior cruciate ligament, medial collateral ligament, and lateral collateral ligamentous complex demonstrate an intact MR appearance, as does the extensor mechanism. There is a displaced bucket hand tear involving the medial meniscus with displacement of the meniscal tissue within the intercondylar region of the knee. The lateral meniscus demonstrates no evidence fo r tear. Articular cartilage appears preserved. No focal concerning regional marrow or muscular signal abnorma lity is evident. There is a mild knee joint effusion. IMPRESSION: 1. Displaced bucket handle tear of the medial meniscus. 2. Mild knee joint effusion. POS: [facility]
== END 2018-04-19 08:22 | disposition home or self-care (01) ==
LOC: SCSMRI 08:21
PROVIDERS: ATTEND Orthopaedic Surgery
DX: M23.92 Unspecified internal derangement of left knee (principal); S83.242A Other tear of medial meniscus, current injury, left knee, initial encounter; M25.462 Effusion, left knee

== ENCOUNTER 2018-04-24 00:31 | Outpatient (CLI) | payer OTHER ==
[2018-04-24 14:06] LABS: BHCG - Serum Negative (NEGATIVE); Pregs Control Background? CLEAR/WHITE (CLR/WHITE); Pregs Control Bar Appear? YES (CONTROL BAR)
== END 2018-04-24 00:32 | disposition home or self-care (01) ==
LOC: LABBT 00:31
PROVIDERS: ATTEND Orthopaedic Surgery
DX: Z01.812 Encounter for preprocedural laboratory examination (principal); S83.242A Other tear of medial meniscus, current injury, left knee, initial encounter
CPT/HCPCS: 84703

== ENCOUNTER 2018-04-26 06:49 | Day surgery (SDC) | payer OTHER ==
[2018-04-24 12:45] VITALS: BMI 20.7
--- NOTE | 2018-04-25 09:05 | HP ---
HISTORY OF PRESENT ILLNESS: A 32-year-old female, who approximately two weeks ago was sitting on the floor and felt her knee pop, and she had immediate pain and difficulty walking and could not extend her knee. She has had used crutches. She has had persistent symptoms despite rest, restriction of activities, use of pain and anti-inflammatory medications. She has had no previous left knee problems. She has a history of possible meniscal tear of the right knee several years ago, which was treated nonoperatively without further problems. PAST HISTORY: The patient was diagnosed with Inder's disease approximately 2 years ago and takes 20 mg of hydrocortisone daily. She has a history of migraines and bulging disk in her low lumbar spine. CURRENT MEDICATIONS: Include, 1. Hydrocortisone. 2. Amitriptyline. 3. Hydrocodone. 4. Ibuprofen. ALLERGIES: SHE IS ALLERGIC TO WELLBUTRIN, COMPAZINE, AND REGLAN. SHE IS A [id number] MOTHER WITH FIVE CHILDREN. FAMILY HISTORY: Otherwise unremarkable. SOCIAL HISTORY: Otherwise unremarkable. REVIEW OF SYSTEMS: Otherwise unremarkable. PHYSICAL EXAMINATION: GENERAL: A healthy female. HEENT: Unremarkable. NECK: Supple. CHEST: Clear. HEART: Regular rate and rhythm. ABDOMEN: Soft, nontender. PELVIC, RECTAL, BREASTS: Deferred. EXTREMITIES: Pertinent findings in the left knee. There is a trace effusion. There is normal alignment. There is tenderness in medial joint line pain with attempted Kiran's maneuver. Range of motion of the left knee is from 15 to 95 degrees and is limited by pain. NEUROVASCULAR: Neurovascular exam is intact. There is no instability and no pain with range of motion of the left hip. Has a left antalgic gait. DIAGNOSTIC STUDIES: X-rays of the left knee are normal. MRI scan of the left knee reveals a displaced bucket-handle tear of the medial meniscus. IMPRESSION: Medial meniscal tear, left knee. PLAN: Arthroscopy of left knee with partial medial meniscectomy and/or debridement and shaving. The nature of the surgery, length of recovery, potential complications such as infection, loss of motion, incomplete relief, thromboembolic phenomena, neurovascular injury, posttraumatic degenerative arthritis, recurrent tear, need for additional treatment and repeat surgery have been discussed in detail. Job ID: [id number]
[2018-04-26] MEDS ORDERED: CEFAZOLIN 2 GM/50 ML BAG ONE (08:34)
[2018-04-26] MEDS ORDERED: Fentanyl 100 MCG/2 ML VIAL ONE ×2 (08:46→10:03)
[2018-04-26] MEDS ORDERED: Bupivacaine HCl 0.5%/Epinephrine 1:200,000/PF 30 ml Vial ONE (09:00)
[2018-04-26] MEDS ORDERED: Meperidine HCl/PF 25 MG/ML VIAL ONE (09:56)
[2018-04-26] MEDS ORDERED: Hydrocortisone Sod Succ/PF 100 mg/2 ml Vial ONE (10:09)
[2018-04-26] MEDS ORDERED: Morphine 4 MG/ML VIAL ONE (10:22)
[2018-04-26] MEDS ORDERED: Morphine 2 MG/ML SYRINGE ONE ×4 (10:33→11:23)
[2018-04-26] MEDS ORDERED: Ketorolac Tromethamine 30 MG/ML VIAL ONE (10:40)
--- NOTE | 2018-04-26 10:45 | OP ---
DATE OF PROCEDURE: 04/26/2018 ANESTHESIA: General. PREOPERATIVE DIAGNOSIS: Medial meniscal tear, left knee. POSTOPERATIVE DIAGNOSIS: Medial meniscal tear, left knee. PROCEDURE PERFORMED: Arthroscopy, left knee with partial medial meniscectomy. OPERATIVE FINDINGS: Examination under anesthesia revealed the knee to be stable. On arthroscopy, there was a displaced bucket-handle tear of the medial meniscus displaced into the intercondylar notch. The ACL was intact. Lateral meniscus was intact. No significant arthritis or articular surface damage. DESCRIPTION OF PROCEDURE: After satisfactory anesthesia was induced in supine position, the patient was placed in a leg marie, prepped and draped in routine manner. The left leg was elevated and exsanguinated with an Esmarch bandage and the tourniquet inflated to 250 mmHg. Sunil arthroscope was introduced through the anterolateral portal, probed through an anteromedial portal, and inflow and outflow accomplished through the scope using a Oddcast arthroscopy pump. Arthroscopy was carried out and the above findings were noted. All findings were documented with video printer and hard copies were made. The anterior horn attachment of the bucket-handle tear of the medial meniscus was attached with meniscal scissors. The scope was then introduced in anteromedial portal and the meniscal fragment grabbed through the anterolateral portal with meniscal grabbers. The posterior horn attachment was then detached from the central anterior portal and the fragment removed after enlarging the anterior lateral portal. The knee was then re-scoped. There was some small meniscal tags anteriorly and posteriorly. There were debrided with the use of basket forceps and motorized shaver. The remaining rim was probed and found to be stable. There was still a small intact rim of 2 to 3 mm. The knee was copiously irrigated through the scope and all instruments were withdrawn. 20 mL of 0.5% Marcaine with epinephrine was instilled into the knee joint and additional 10 mL injected about the portal sites. Portal sites were closed with 3-0 nylon and a sterile bulky compressive dressing was applied, and the tourniquet deflated after 90 minutes. Foot promptly pinked up. The patient was awakened, taken to recovery room in stable condition. There were no apparent intraoperative complications. The estimated blood loss was negligible. The patient will be discharged home in satisfactory condition with an ice and elevation, use of crutches, home exercise program with Physical Therapy Department. She was given written wound care instructions and prescription for [place] 7.5 for pain, 40 tablets. She will be rechecked in my office in 10 to 14 days or sooner if there are any problems prior to that time. Job ID: [id number]
[2018-04-26] MEDS ORDERED: HYDROcodone/Acetaminophen 5/325 mg Tablet ONE (12:43)
[2018-04-26] MEDS ORDERED: Lidocaine 1% PF 5 ML VIAL ONE (13:47)
[2018-04-26] MEDS ORDERED: PROPOFOL 200 MG/20 ML VIAL ONE (13:47)
[2018-04-26] MEDS ORDERED: Ondansetron PF 4 MG/2 ML Vial ONE (13:47)
== END 2018-04-26 13:00 | disposition home or self-care (01) ==
LOC: SDC 06:49
PROVIDERS: ATTEND Orthopaedic Surgery
PROC: 0SBD4ZZ Excision of Left Knee Joint, Percutaneous Endoscopic Approach (ICD-10-PCS; principal; 2018-04-26)
DX: S83.212A Bucket-handle tear of medial meniscus, current injury, left knee, initial encounter (principal); E27.1 Primary adrenocortical insufficiency; M51.26 Other intervertebral disc displacement, lumbar region; F17.200 Nicotine dependence, unspecified, uncomplicated; G43.909 Migraine, unspecified, not intractable, without status migrainosus; Z79.52 Long term (current) use of systemic steroids; Z79.899 Other long term (current) drug therapy; Z88.8 Allergy status to other drugs, medicaments and biological substances; X50.1XXA Overexertion from prolonged static or awkward postures, initial encounter
CPT/HCPCS: J0131; J0670; J1720; J1885; J2175; J2270; J3010

== ENCOUNTER 2018-04-30 21:29 | Emergency (ER) | payer OTHER ==
[2018-04-30] MEDS ORDERED: HYDROcodone/Acetaminophen 10/325 mg Tablet ONE (22:30)
--- NOTE | 2018-04-30 22:34 | RAD ---
LEFT KNEE FOUR VIEWS: HISTORY: Left knee pain. FINDINGS: No fracture or dislocation is identified. POS: [facility]
== END 2018-04-30 23:02 | disposition home or self-care (01) ==
LOC: ERS 21:29
DX: G89.18 Other acute postprocedural pain (principal); M25.562 Pain in left knee; F41.9 Anxiety disorder, unspecified; F32.9 Major depressive disorder, single episode, unspecified; F17.210 Nicotine dependence, cigarettes, uncomplicated; G43.909 Migraine, unspecified, not intractable, without status migrainosus; E27.1 Primary adrenocortical insufficiency

== ENCOUNTER 2018-05-23 08:03 | Emergency (ER) | payer OTHER ==
[2018-05-23 08:54] LABS: #Eosinphils 0.1 thou/uL (0.0-0.7); #Lymphocytes 1.6 thou/uL (1.20-3.40); #Monocytes 0.4 thou/uL (0.11-0.59); #Neutrophils 2.9 thou/uL (1.40-6.50); %Eosinophils 2.4 % (0.0-10.0); %Neutrophils 57.5 % (42.0-75.0); Hemoglobin 14.1 g/dL (12.0-16.0); Mean Corpuscular HGB CONC 32.7 g/dL (32.0-36.0); Mean Corpuscular Hemoglobin 30.5 pg (27.0-31.0); Mean Corpuscular Volume 93.2 fL (78.0-98.0); Platelet Count 205 thou/uL (130-400); RBC Distribution Width 11.9 % (11.5-14.5); Red Blood Cell (RBC) Count 4.61 mill/uL (4.20-5.40)
[2018-05-23 09:08] LABS: Bilirubin Negative (Negative); Blood, Urine Moderate (Negative); Clarity CLOUDY (Clear); Glucose, Urine (Dipstick) Negative (Negative); Leukocyte Small (Negative); Nitrite Negative (Negative); Protein, Urine (Dipstick) Negative (Neg-Trace); Specific Gravity, Urine 1.017 (1.002-1.036); Urobilinogen 0.2 mg/dL (0.2-1.0); pH, Urine 6.5 (5.0-9.0)
[2018-05-23 09:11] LABS: Bacteria/HPF 1+ HPF (None Seen); Hyaline Casts/LPF 4-6 HYALINE CAST LPF (0-3 Hyaline); Pathc Cast-AUWi Flag 0.81 (0-2.49); Pregnancy Test - Urine (BHCG) Negative (Negative); Pregu Control Background? CLEAR/WHITE (CLR/WHITE); Pregu Control Bar Appear? YES (CONTROL BAR); Specific Gravity 1.017 (1.002-1.036)
[2018-05-23 09:13] LABS: ALT (SGPT) 10 U/L (8-55); AST (SGOT) 12 U/L (5-34); Albumin 4.1 g/dL (3.5-5.0); Alkaline Phosphatase 61 U/L (40-150); Anion Gap 11 mmol/L (10-20); BUN (Urea Nitrogen) 9 mg/dL (7.0-18.7); Bilirubin, Total 0.2 mg/dL (0.2-1.2); Calc. Creatinine Clearance 0 mL/min (70-130); Calcium 9.1 mg/dL (7.8-10.44); Carbon Dioxide 27 mmol/L (22-29); Chloride 106 mmol/L (98-107); Estimated GFR-MDRD 83; Globulin 2.2 g/dL (2.4-3.5); Glucose 97 mg/dL (70-105); Potassium 3.5 mmol/L (3.5-5.1); Protein, Total 6.3 g/dL (6.0-8.3); Sodium 140 mmol/L (136-145)
[2018-05-23] MEDS ORDERED: Ketorolac Tromethamine 30 MG/ML VIAL ONE (09:13)
--- NOTE | 2018-05-23 09:43 | CT ---
CT OF ABDOMEN AND PELVIS PERFORMED WITHOUT CONTRAST ENHANCEMENT: History: Abdominal pain since yesterday, localized more to the lower abdomen, but pain is present on both sides. History of previous renal stones. FINDINGS: The lung bases appear hyperexpanded. The liver is prominent mainly related to somewhat elongated right lobe. The spleen measures 11.9 cm i n length. Pancreas and gallbladder regions appear unremarkable. Right and left adrenal glands and right and left kidneys are normal in size. There are multiple punct ate bilateral renal calculi. There are no definitive ureteral calculi and there are some phleboliths present within the left side of the pelvis which would be closed to but are not felt to be related to the distal left ureter. There is no significant periaortic or mesenteric lymphadenopathy. CT OF PELVIS PERFORMED WITHOUT CONTRAST ENHANCEMENT: The appendix is normal. Small follicles are seen involving the adnexa. No adenopathy or mass. No evid ence of free fluid. IMPRESSION: Bilateral punctate nonobstructing renal calculi. POS: [facility]
== END 2018-05-23 09:58 | disposition home or self-care (01) ==
LOC: ERS 08:03
DX: N12 Tubulo-interstitial nephritis, not specified as acute or chronic (principal); F17.210 Nicotine dependence, cigarettes, uncomplicated; G43.909 Migraine, unspecified, not intractable, without status migrainosus; F41.9 Anxiety disorder, unspecified; F32.9 Major depressive disorder, single episode, unspecified; E27.1 Primary adrenocortical insufficiency; Z87.442 Personal history of urinary calculi
CPT/HCPCS: 36415; 74176; 80053; 81003; 81015; 81025; 83690; 85025; 87086; 96372; J1885

== ENCOUNTER 2018-05-24 23:45 | Emergency (ER) | payer OTHER ==
[2018-05-25 00:43] LABS: Bilirubin Small (Negative); Blood, Urine Large (Negative); Glucose, Urine (Dipstick) Negative (Negative); Leukocyte Negative (Negative); Nitrite Negative (Negative); Protein, Urine (Dipstick) Trace mg/dL (Neg-Trace); Urobilinogen 0.2 mg/dL (0.2-1.0)
[2018-05-25 00:45] LABS: Clarity Cloudy (Clear); Pregnancy Test - Urine (BHCG) Negative (Negative); Pregu Control Background? CLEAR/WHITE (CLR/WHITE); Pregu Control Bar Appear? YES (CONTROL BAR)
[2018-05-25 00:47] LABS: Bacteria/HPF None Seen HPF (None Seen); Hyaline Casts/LPF 0-3 HYALINE CAST LPF (0-3 Hyaline); RBC/HPF GREATER THAN 50-TNTC HPF (0-3); Squamous Epithelial 0-3 HPF (0-3)
[2018-05-25 01:07] LABS: #Lymphocytes 1.7 thou/uL (1.20-3.40); #Monocytes 0.6 thou/uL (0.11-0.59); #Neutrophils 4.6 thou/uL (1.40-6.50); %Basophils 0.1 % (0.0-1.0); %Eosinophils 0.7 % (0.0-10.0); %Lymphocytes 24.1 % (21.0-51.0); %Monocytes 8.2 % (0.0-10.0); Mean Corpuscular HGB CONC 34.3 g/dL (32.0-36.0); Mean Corpuscular Hemoglobin 31.8 pg (27.0-31.0); Mean Corpuscular Volume 92.8 fL (78.0-98.0); Mean Platelet Volume 7.7 fL (7.4-10.4); Platelet Count 207 thou/uL (130-400); Red Blood Cell (RBC) Count 4.41 mill/uL (4.20-5.40); White Blood Cell (WBC) Count 6.9 thou/uL (4.8-10.8)
[2018-05-25] MEDS ORDERED: Ketorolac Tromethamine 30 MG/ML VIAL ONE (01:26)
[2018-05-25 01:29] LABS: ALT (SGPT) 8 U/L (8-55); AST (SGOT) 12 U/L (5-34); Albumin 4.3 g/dL (3.5-5.0); Alkaline Phosphatase 55 U/L (40-150); Anion Gap 13 mmol/L (10-20); BUN (Urea Nitrogen) 8 mg/dL (7.0-18.7); Bilirubin, Total 0.4 mg/dL (0.2-1.2); Calc. Creatinine Clearance 0 mL/min (70-130); Calcium 9.6 mg/dL (7.8-10.44); Carbon Dioxide 24 mmol/L (22-29); Chloride 109 mmol/L (98-107); Estimated GFR-MDRD Greater than 90; Globulin 2.4 g/dL (2.4-3.5); Glucose 108 mg/dL (70-105); Potassium 3.5 mmol/L (3.5-5.1); Protein, Total 6.7 g/dL (6.0-8.3); Sodium 142 mmol/L (136-145)
[2018-05-25] MEDS ORDERED: HYDROcodone/Acetaminophen 5/325 mg Tablet ONE (02:15)
[2018-05-25] MEDS ORDERED: Ciprofloxacin 500 MG TAB ONE (04:12)
--- NOTE | 2018-05-25 08:16 | CT ---
PRELIMINARY REPORT/[facility]/EMERGENCY AFTER HOURS PROCEDURE: EXAM: CT Abdomen and Pelvis Without Contrast EXAM DATE/TIME: 05/25/2018 1:45 AM CLINICAL HISTORY: 32 years old, female; Pain; Abdominal pain; Flank; Left; Patient HX: Er 14; F32 presents to ed for ut i symptoms. PT reports she was seen here a couple of days ago and diagnosed with "a bad uti" and sent home with keflex, motrin, and tylenol with codeine. PT reports back pain, left sided abdominal pain, and fever up to 100.4. PT reports today the pain worsened and at 8 she had to take 2 tylenol with co deine. PT reports she then went to the bathroom and reports hematuria at that time. PT reports HX of kidney stones. TECHNIQUE: Axial computed tomography images of the abdomen and pelvis without contrast. Coronal reformatted imag es were created and reviewed. COMPARISON: No relevant prior studies available. FINDINGS: Lower thorax: No acute findings. ABDOMEN: Liver: There may be fatty infiltration of the liver. Gallbladder and bile ducts: Normal. No calcified stones. No ductal dilation. Pancreas: Normal. No ductal dilation. Spleen: Normal. Adrenals: Normal. Kidneys and ureters: There are bilateral nonobstructing renal calculi. Stomach and bowel: Normal. No obstruction. Appendix: The appendix is not identified. PELVIS: Bladder: Unremarkable as visualized. Reproductive: Unremarkable as visualized. ABDOMEN and PELVIS: Intraperitoneal space: Unremarkable. No free fluid or free air. No fluid collection. Bones/joints: No acute fracture. No dislocation. Soft tissues: Unremarkable. Vasculature: Normal. No abdominal aortic aneurysm. Lymph nodes: Normal. No enlarged lymph nodes. IMPRESSION: 1. Bilateral nonobstructing renal calculi. 2. No acute abnormality identified. 3. Additional findings as above. Thank you for allowing us to participate in the care of your patient. Dictated and Authenticated by: Ivan Howell MD 05/25/2018 2:13 AM Central Time ([place] & [place]) FINAL REPORT CT ABDOMEN AND PELVIS WITHOUT CONTRAST: I agree with the preliminary report given by Dr. Josesito Ordonez of [employer]. POS: [facility]
== END 2018-05-25 04:23 | disposition home or self-care (01) ==
LOC: ERS 23:45
DX: N12 Tubulo-interstitial nephritis, not specified as acute or chronic (principal); L30.9 Dermatitis, unspecified; E27.1 Primary adrenocortical insufficiency; F41.9 Anxiety disorder, unspecified; F32.9 Major depressive disorder, single episode, unspecified; F17.210 Nicotine dependence, cigarettes, uncomplicated; Z79.891 Long term (current) use of opiate analgesic; Z79.899 Other long term (current) drug therapy
CPT/HCPCS: 74176; 80053; 81003; 81015; 81025; 83605; 85025; 87086; 96361; 96374; J1885

== ENCOUNTER 2018-06-01 07:13 | Emergency (ER) | payer OTHER | END 2018-06-01 08:28 | disposition home or self-care (01) | LOC: ERS 07:13 | DX: A60.04 Herpesviral vulvovaginitis (principal); E27.1 Primary adrenocortical insufficiency; F41.9 Anxiety disorder, unspecified; F32.9 Major depressive disorder, single episode, unspecified; F17.210 Nicotine dependence, cigarettes, uncomplicated; Z79.899 Other long term (current) drug therapy | CPT/HCPCS: 99283 ==

== ENCOUNTER 2018-06-04 23:25 | Emergency (ER) | payer OTHER ==
[2018-06-05] MEDS ORDERED: HYDROcodone/Acetaminophen 5/325 mg Tablet ONE (00:32)
--- NOTE | 2018-06-05 08:24 | RAD ---
RIGHT KNEE FOUR VIEWS: HISTORY: Right knee pain following an injury. FINDINGS/IMPRESSION: No fracture, dislocation, or other significant acute osseous abnormality. POS: [facility]
== END 2018-06-05 00:40 | disposition home or self-care (01) ==
LOC: ERS 23:25
DX: M25.561 Pain in right knee (principal); F17.210 Nicotine dependence, cigarettes, uncomplicated

== ENCOUNTER 2018-06-17 20:48 | Emergency (ER) | payer OTHER | END 2018-06-17 21:49 | disposition left against medical advice (07) | LOC: ERS 20:48 | DX: Z53.21 Procedure and treatment not carried out due to patient leaving prior to being seen by health care provider (principal) ==

== ENCOUNTER 2019-03-03 21:32 | Day surgery (SDC) | payer OTHER ==
[2019-03-03 22:25] VITALS: BMI 31.7
[2019-03-03] MEDS ORDERED: hydrALAZINE 20 MG/ML VIAL SLOW IVP PRN (23:02)
[2019-03-04 00:36] LABS: #Eosinphils 0.2 thou/uL (0.0-0.7); #Lymphocytes 2.9 thou/uL (1.20-3.40); #Monocytes 1.2 thou/uL (0.11-0.59); #Neutrophils 11.9 thou/uL (1.40-6.50); %Basophils 0.2 % (0.0-1.0); %Eosinophils 1.5 % (0.0-10.0); %Lymphocytes 17.6 % (21.0-51.0); %Monocytes 7.4 % (0.0-10.0); %Neutrophils 73.3 % (42.0-75.0); Hemoglobin 11.9 g/dL (12.0-16.0); Mean Corpuscular HGB CONC 35.3 g/dL (32.0-36.0); Mean Corpuscular Hemoglobin 32.4 pg (27.0-31.0); Mean Corpuscular Volume 91.8 fL (78.0-98.0); Mean Platelet Volume 7.1 fL (7.4-10.4); Platelet Count 248 thou/uL (130-400); RBC Distribution Width 13.7 % (11.5-14.5); Red Blood Cell (RBC) Count 3.66 mill/uL (4.20-5.40); White Blood Cell (WBC) Count 16.3 thou/uL (4.8-10.8)
--- NOTE | 2019-03-04 00:42 | PDOC.FPRHP ---
- History of Present Illness Chief Complaint: Itching History of Present Illness: 33yo presents to L&D with complaint of extreme itching. Pt stated that about 1 week ago she started to develop itching to the soles of her hands and feet. She states that this slowly progressed throughout the week, becoming more and more irritating to her. Last night the itching started to become more generalized and had spread to her face, lower abdomen, and back. She states that tonight it is much worse to the point that she can longer stand it. She denies noticing any lesions associated with the itching. She never developed a rash. She took one benedryl this morning and states that it may have helped a little for a short period of time. She has not had this problem w/ previous pregnancies. Notes nausea throughout the which she is still dealing with. Notes contractions for the past 2 weeks that she feels are becoming more frequent. Was seen at [facility] last week for this and discharged after she did not make cervical change. Pt was to be following up w/ [facility] but has only seen them once. She denies having an anatomy US performed yet during this . PMHx of Inder's disease - has been getting her hydrocortisone doses titrated throughout the . - Allergies/Adverse Reactions Allergies Allergy/AdvReac Type Severity Reaction Status Date / Time bupropion [From Wellbutrin] Allergy Severe night Verified 03/03/19 22:10 terrors and anxiety metoclopramide [From Reglan] Allergy Intermediate aggitation Verified 03/03/19 22:10 prochlorperazine Allergy Intermediate agitation Verified 03/03/19 22:10 [From Compazine] - Home Medications Medication Instructions Recorded Confirmed Type Hydrocortisone [Cortef] 15 mg PO TID 01/15/17 03/03/19 History Rizatriptan Benzoate [Rizatriptan] 5 mg PO Q2HR PRN 01/27/18 03/03/19 History HYDROcodone Bit/APAP 5/325 [[place] 1 - 2 tab PO Q6HR PRN 04/24/18 03/03/19 History 5/325] lamoTRIgine [LaMICtal] 200 mg PO DAILY 04/24/18 03/03/19 History Famotidine 20 mg PO BID 03/03/19 03/03/19 History QUEtiapine Fumarate [SEROquel] 100 mg pe PO BID 03/03/19 03/03/19 History clonazePAM [Clonazepam] 1 tab PO DAILY PRN 03/03/19 03/03/19 History Ursodiol 300 mg PO BID #60 capsule 03/04/19 Rx hydrOXYzine [Atarax] 25 mg PO QID PRN #60 tab 03/04/19 Rx - History PMHx: [place]'s Disease, seizures (resolved), Migraines, Kidney stones, anxiety , depression, bipolar OB Hx: , previous pre-eclampsia w/ 3rd child PSHx: Renal stone extraction FHx: Insignificant Social: Denies any alcohol, tobacco, or illicit drug use - Review of Systems General: denies: fever/chills, weight/appetite/sleep changes Eyes: denies: vision changes, other ENT: denies: nasal congestion, rhinorrhea Respiratory: denies: cough, congestion, shortness of breath Cardiovascular: denies: chest pain, palpitation Gastrointestinal: reports: nausea, vomiting. denies: diarrhea, constipation, abdominal pain Genitourinary: denies: incontinence, dysuria, polyuria, discharge, other (no vaginal bleeding) Skin: reports: itching. denies: rashes, lesions, jaundice Musculoskeletal: denies: pain, tenderness, stiffness, swelling Neurological: denies: numbness, syncope, seizure, weakness Psychological: denies: other - Vital signs BP: [] HR: [] RR: [] Tmax: [] Pox: []% on [] Wt: [] - Physical Exam Constitutional: NAD, awake, alert and oriented, well developed HEENT: normocephalic and atraumatic, EOMI, grossly normal vision, grossly normal hearing, MMM Neck: supple, FROM Heart: RRR, normal S1/S2, no murmurs/rubs/gallops Lungs: CTAB, no respiratory distress, good air movement Abdomen: soft -Abdomen: Gravid, straie, escorations to lower abdomen Musculoskeletal: normal structure, normal tone Neurological: no focal deficit, CN II-XII intact Skin: good turgor, capillary refill <2 seconds, no jaundice -Skin: Excorations to upper arms and hands Heme/Lymphatic: no unusual bruising or bleeding, no purpura, no petechia Psychiatric: normal mood and affect, good judgment and insight, intact recent and remote memory FMR H&P: Results - Labs Result Diagrams: 03/04/19 00:19 03/04/19 00:19 Lab results: WBC 16.3 thou/uL (4.8-10.8) H 03/04/19 00:19 Hgb 11.9 g/dL (12.0-16.0) L 03/04/19 00:19 Hct 33.6 % (36.0-47.0) L 03/04/19 00:19 MCV 91.8 fL (78.0-98.0) 03/04/19 00:19 Plt Count 248 thou/uL (130-400) 03/04/19 00:19 Neutrophils % 73.3 % (42.0-75.0) 03/04/19 00:19 FMR H&P: A/P - Problem List (1) Cholestasis during Status: Acute Code(s): O26.619 - LIVER AND BILIARY TRACT DISORD IN , UNSP TRIMESTER; K83.1 - OBSTRUCTION OF BILE DUCT (2) Inder's disease Status: Acute Code(s): E27.1 - PRIMARY ADRENOCORTICAL INSUFFICIENCY - Plan FHTs: Baseline 105-115 baseline, pos accels, no late or variable decelerations [place]: Contractions approx every 4 minutes decreased throughout obs to approx q6 upon dc BPP: 10/19 OB US: Fundal placenta, cerivcal length approx 3-4 cm, S>D Contractions - cervix closed and <3cm - possible jeannie leon - labor precautions reviewed extensively with pt, pt agreeable to return if strong painful contraction q3-5 minutes persisting > 30-1hr, Vsg bleeding, Decreased FM and concern for LOF - UA Leuks and nitrited negative, pos squams and 1+ bacteria (likely related to dirty catch, pt to f/u early next week, repeat UA on f/u visit Cholestasis of - presumptive based on symptoms - LFTs normal, Tbili 0.3 - bile acids sent - rx ursodiol and atarax - f/u in clinic w/in one week Addisons disease - cortisol level mildly low, consider outpt titration of current regimen Dispo: Stable, dc to home with instructions for close OP f/u. Rx for presumptive cholestasis, delivery at 36 weeks pending clinical course. FMR H&P: Upper Level - Pertinent history 33 yo @ 32.1 presetns for new onset itching and her palms and soles. Pt reports severe itching primarily involvig hands and feet, worse at night. No jaundice. No vag bleeding, dc or LOF. Pt reports contractions every 5-10 minutes for the last two weeks. She has history of addisons disease, POTS syndrome, pseudoseizures and bipolar 1 disorder. She was supposed to see [facility] regulalry and f/u for anatomy scan; however. pt reports she has not seen them in approx 1 month and has no more pending appointments. No other complaints. Regarding pos UDS: pt was seen at [facility] and d elkins and reports she took one approx 1-2 days [employer]. - Pertinent findings FHTs: Baseline 105-115 baseline, pos accels, no late or variable decelerations [place]: COntractions approx every 4 minutes decreased throughout obs to approx q6 upon dc BPP: 10/19 OB US: Fundal placenta, cerivcal length approx 3-4 cm, S>D PE: Gen: NAD Skin: No rash, scattered excoriations on abdomen and hands/arms, No Jaundice HEENT: PERRLA, EOMI, No scleral icterus - Plan Date/Time: 03/04/1941 IJose DO, have evaluated this patient and agree with findings/ plan as outlined by international project engineer resident. Pertinent changes/additions are listed here. 1) Contractions: - cervix closed and >3cm - possible jeannie leon - labor precautions reviewed extensively with pt, pt agreeable to return if strong painful contraction q3-5 minutes persisting > 30-1hr, Vsg bleeding, Decreased FM and concern for LOF - UA Leuks and nitrited negative, pos squams and 1+ bacteria (likely related to dirty catch, pt to f/u early next week, repeat UA on f/u visit 2) Cholestasis of - presumptive based on symptoms - LFTs normal - bile acids sent - rx ursodiol and atarax - f/u in clinic w/in one week 3)Addisons disease - cortisol level mildly low, consider OP uptitration of current regimen Dispo: Stable, dc to home with instructions for close OP f/u. Rx for presumptive cholestasis, delivery at 36 weeks pending clinical course. Addendum - Attending - Attending Attestation Date/Time: 03/04/19 1013 I personally evaluated the patient and discussed the management with Dr. Gayle on 03/03/2019 I agree with the History, Examination, Assessment and Plan documented above with any addition or exceptions noted below - 33 Yo G8 5025 @32.1 presented c/o generalized itching. States that it initiallt started on her palms and soles but iver the last week has generalized. Became more intense in last day. Tried benadryl with minimal relief. (+) FM. Denies any rash. Denies any new soaps, detergents, lotions, or foods. Has not had this in prior pregnancies. Afebrile VSS Cat 1 FHTs [place] ctx q3-4 min. A/P: 1) Possible cholestasis of - will check CMP, CBC, bile acids. Will check BPP as well as growth/anatomy USG as patient has had intermittent care. If BPP reassuring, will d/ c home with prescription for ursodiol and atarax. Stressed importance of close follow- up in clinic. Patient verbalized understanding.
[2019-03-04 00:47] LABS: ALT (SGPT) 15 U/L (8-55); AST (SGOT) 20 U/L (5-34); Albumin 3.1 g/dL (3.5-5.0); Alkaline Phosphatase 98 U/L (40-110); Anion Gap 13 mmol/L (10-20); BUN (Urea Nitrogen) 4 mg/dL (7.0-18.7); Bilirubin, Total 0.3 mg/dL (0.2-1.2); Calc. Creatinine Clearance 191 mL/min (70-130); Calcium 8.8 mg/dL (7.8-10.44); Carbon Dioxide 21 mmol/L (22-29); Chloride 106 mmol/L (98-107); Estimated GFR-MDRD Greater than 90; Globulin 2.5 g/dL (2.4-3.5); Glucose 90 mg/dL (70-105); Protein, Total 5.6 g/dL (6.0-8.3); Sodium 137 mmol/L (136-145)
[2019-03-04 00:57] LABS: Amphetamine Not Detected (NotDetected); Barbiturates Screen Not Detected (NotDetected); Benzodiazepine Screen Not Detected (NotDetected); Cocaine Metabolite Screen Not Detected (NotDetected); Medtox Control Line Valid? VALID (VALID); Medtox Reader # READER 4; Methadone Not Detected (NotDetected); Methamphetamine Not Detected (NotDetected); Opiate Screen Detected (NotDetected); Oxycodone Screen Not Detected (NotDetected); Phencyclidine (PCP) Not Detected (NotDetected); THC/Cannabinoid Screen Not Detected (NotDetected); Tricyclic Screen Not Detected (NotDetected)
[2019-03-04] MEDS ORDERED: Ondansetron ODT 4 MG TAB PO PRN (01:02)
[2019-03-04 01:20] LABS: Creatinine, Urine 131.32 mg/dL (47-110)
[2019-03-04 01:31] LABS: Bacteria/HPF 1+ HPF (None Seen); Bilirubin Negative (Negative); Blood, Urine Trace (Negative); Clarity Clear (Clear); Glucose, Urine (Dipstick) Normal (Negative); Leukocyte Negative Leu/uL (Negative); Nitrite Negative (Negative); Protein, Urine (Dipstick) 20 mg/dL (Neg-Trace); Urobilinogen Normal mg/dL (Less than 2)
[2019-03-04 01:32] LABS: Urine Culture Reflex No No
--- NOTE | 2019-03-04 08:24 | ULT ---
PRELIMINARY REPORT/[facility]/AFTER HOURS US OBSTETRICAL, COMPLETE 14 WEEKS: CLINICAL HISTORY: Contractions at 32 weeks, limited. PNC. TECHNIQUE: Transabdominal imaging of the maternal pelvis and a > 14 week gestation with image documentation. COMPARISON: None provided. FINDINGS: FETUS: There is a single living intrauterine gestation, estimated gestational age 35 weeks 4 days. POSITION: position is vertex. HEART RATE: The heart rate is 122 beats per minute. BIOMETRICS: Based on composite biometry, the estimated gestational age by ultrasound is 35 week s 4 days corresponding to a due date of 04/03/2019. The estimated weight is 2675 g. ANATOMIC SURVEY: The visualized anatomy is unremarkable. PLACENTA: The placenta is located on the right. No sonographic evidence for previa or abruption. AMNIOTIC FLUID: Within normal limits. The ESME is 12.8 cm. CERVIX: Closed. Unremarkable as visualized. Measures 4 cm. IMPRESSION: Single viable intrauterine . No acute abnormality. ELECTRONICALLY SIGNED BY: Allan Jim MD Mar 04, 2019 12:47:51 AM [employer] This report is intended for review by the ordering physician only, in accordance of law. If you recei ve this report in error, please call [facility] at [phone]. FINAL REPORT OB ULTRASOUND: PROVIDED CLINICAL HISTORY: Poor care. COMPARISON: None. FINDINGS/IMPRESSION: Agree with the preliminary interpretation given by [facility]. CODE QA Transcribed Date/Time: 03/04/2019 8:44 AM
--- NOTE | 2019-03-04 08:25 | ULT ---
PRELIMINARY REPORT/[facility]/AFTER HOURS PROCEDURE US BIOPHYSICAL PROFILE WITHOUT NON-STRESS TESTING: CLINICAL HISTORY: Contractions at 32 weeks. TECHNIQUE: Real-time ultrasound of the maternal pelvis for biophysical profile evaluation with image docum entation. COMPARISON: None provided. FINDINGS: BREATHING MOVEMENTS: Score 2/2. BODY MOVEMENTS: Score 2/2. TONE: Score 2/2. QUALITATIVE AMNIOTIC FLUID VOLUME: Within normal limits. 2/2. IMPRESSION: Normal biophysical profile, 10/19. ELECTRONICALLY SIGNED BY: Allan Jim MD Mar 04, 2019 12:48:53 AM RESERVE OFFICER This report is intended for review by the ordering physician only, in accordance of law. If you recei ve this report in error, please call [facility] at [phone]. FINAL REPORT BIOPHYSICAL PROFILE: PROVIDED CLINICAL HISTORY: Poor care. COMPARISON: None. FINDINGS/IMPRESSION: Agree with the preliminary interpretation given by [facility]. CODE QA Transcribed Date/Time: 03/04/2019 8:38 AM
== END 2019-03-04 01:50 | disposition home or self-care (01) ==
LOC: L&D/OP 21:32
PROVIDERS: ATTEND Student in an Organized Health Care Education/Training Program
DX: O26.893 Other specified pregnancy related conditions, third trimester (principal); L29.9 Pruritus, unspecified; O47.03 False labor before 37 completed weeks of gestation, third trimester; O99.283 Endocrine, nutritional and metabolic diseases complicating pregnancy, third trimester; E27.1 Primary adrenocortical insufficiency; O99.343 Other mental disorders complicating pregnancy, third trimester; F41.9 Anxiety disorder, unspecified; F31.9 Bipolar disorder, unspecified; O99.353 Diseases of the nervous system complicating pregnancy, third trimester; G43.909 Migraine, unspecified, not intractable, without status migrainosus; Z3A.32 32 weeks gestation of pregnancy; Z79.52 Long term (current) use of systemic steroids; Z79.899 Other long term (current) drug therapy; Z88.8 Allergy status to other drugs, medicaments and biological substances
CPT/HCPCS: 36415; 76805; 76819; 80053; 80306; 81001; 82239; 82533; 82570; 84156; 85025; 99283; Q0162

== ENCOUNTER 2019-03-11 01:13 | Day surgery (SDC) | payer OTHER ==
[2019-03-11 02:01] VITALS: BMI 37.9
--- NOTE | 2019-03-11 02:28 | PDOC.FPROB ---
FMR OB H&P: HPI - History of Present Illness Chief Complaint: multiple complaints Indentification: 33 yo History of Present Illness: Michelle presents to L&D for the chief concern of severe pelvic pain, among other concerns. She states that she has had the pain in her groin area since her last trip to L&D but it acutely worsened on [place]. Since then she has mostly stayed in bed because of the pain. She has also noted an increase in agitation and that has affected her sleep. She stopped taking her seroquel approximately two weeks ago because she thought it was causing the increase in agitation. She also has not been taking the hydroxyzine for the same reason. She has also been kevyn at home every 2-3 minutes. Her contractions are mildly painful and brief. Her other concerns are nausea, vomiting and diarrhea that has been present for the last several days. She reports approximately 6 loose, watery stools yesterday. The last time she vomited was this morning. She has been able to eat and drink since then. She was diagnosed with cholestasis of at the last visit, however her bile salts came back negative. Her itching has been about the same, but more tolerable. She is complaining of blurry vision that is intermittent, short in duration, and happens throughout the day randomly. She has had shortness of breath since the beginning of her and states this has not changed. She complains sudden onset of shortness of breath where she feels that she cannot catch her breath for several seconds, then it passes. She also complains of one episode of chest pain today. The pain is 6/10, sharp and stabbing, that came and went sporadically and quickly at around midnight. She was laying in bed when the pain occurred. She states she lost her mucus plug a couple days ago. She denies vaginal bleeding, vaginal discharge, decreased movement, loss of fluid, abnormal discharge, dysuria, or hematuria. She has not had intercourse since 03/02. Primary Care Physician: JAYDE Loredo / [facility] FMR OB H&P: Current - Care : 8 Para: 5025 Gestational age: 33.2 Due date: 04/27/2019 Course/Complications: Comerío's disease, Substance abuse during , Seizure disorder, Bipolar 1 disorder - OB Labs Blood type: O RH: negative HIV: negative RPR: negative HepBsAg: negative Rubella: immune Urine drug screen: positive (marijuana in the past) GBS: unknown FMR OB H&P: History - Past Medical History PMH: GERD Inder's / Adrenal insufficiency Marijuana use h/o preeclampsia in 3rd , h/o GDM in prior Anxiety and depression Bipolar 1 disorder Herpes, genital Seizure disorder Migraines Insomnia PTSD - OB History OB History: 5 prior vaginal deliveries Pre-eclampsia with 3rd h/o GDM in prior States she has had elevated blood pressures during this - 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 - Family History Family History: Non-contributory. FMR OB H&P: Medications - Current Home Medications: Medication Instructions Recorded Confirmed Type Hydrocortisone [Cortef] 25 mg PO DAILY 01/15/17 03/11/19 History Rizatriptan Benzoate [Rizatriptan] 5 mg PO Q2HR PRN 01/27/18 03/11/19 History HYDROcodone Bit/APAP 5/325 [[place] 1 - 2 tab PO Q6HR PRN 04/24/18 03/03/19 History 5/325] lamoTRIgine [LaMICtal] 200 mg PO DAILY 04/24/18 03/11/19 History clonazePAM [Clonazepam] 1 tab PO DAILY PRN 03/03/19 03/11/19 History Allergies/Adverse Reactions: Allergies Allergy/AdvReac Type Severity Reaction Status Date / Time bupropion [From Wellbutrin] Allergy Severe night Verified 03/03/19 22:10 terrors and anxiety metoclopramide [From Reglan] Allergy Intermediate aggitation Verified 03/03/19 22:10 prochlorperazine Allergy Intermediate agitation Verified 03/03/19 22:10 [From Compazine] FMR OB H&P: ROS - Review of Systems General: reports: weight/appetite/sleep changes, fatigue. denies: fever/chills , night sweats Eyes: reports: vision changes, scotomas. denies: eye pain ENT: reports: nasal congestion. denies: rhinorrhea, sinus pain/pressure, ear pain, sore throat Cardiovascular: reports: chest pain. denies: palpitation, edema, paroxysmal nocturnal dyspnea, orthopnea Respiratory: reports: shortness of breath. denies: cough, congestion, exercise intolerance Gastrointestinal: reports: abdominal pain, indigestion, nausea, vomiting, diarrhea. denies: bloating, cramping, constipation, bright red blood, dark black tarry stools Genitourinary (Female): reports: vaginal pain, contractions, vaginal pressure. denies: incontinence, dysuria, hematuria, polyuria, vaginal discharge, vaginal bleeding, vaginal mass/sore Musculoskeletal: denies: pain, stiffness, tenderness Neurologic: denies: numbness, syncope, seizures, weakness Integumentary: reports: itching. denies: rash, lesions, discoloration Breast: denies: lumps, bumps, masses Endocrine: denies: cold intolerance, heat intolerance, polydipsia, polyuria Hematologic/Lymphatic: denies: prolonged or excessive bleeding, enlarged lymph nodes Psychological: reports: depression, anxiety. denies: hallucinations FMR OB H&P: Vital Signs - Heart Tones Baseline: 130 Variability: moderate Acceleration: present Deceleration: absent [place] contractions every: 4-5min FMR OB H&P: Physical Exam - Physical Exam General: NAD, awake, alert and oriented HEENT: normocephalic and atraumatic, PERRLA, EOMI, MMM, conjunctiva clear, grossly normal vision, grossly normal hearing Neck: supple, trachea midline Deviation from normal: Tender to palpation along the sternum Breast: non-tender Heart: RRR, normal S1/S2, no murmurs/rubs/gallops General: CTAB, no respiratory distress, good air movement Abdomen: soft, gravid, bowel sound present Deviation from normal: TTP in the RLQ Musculoskeletal: normal gait and station, pulses present Neurological: cranial nerves II through XII intact, sensation to pain,touch and proprioception grossly normal Skin: no rash, good tugor Lymphatic: no unusual bruising or bleeding, no purpura Psychiatric: intact recent and remote memory - Pelvic Exam Vulva: normal hair distribution Deviation from normal: Labia were TTP, moreso on the right side. SVE: Closed/Thick/High and posterior. Fingertip at the external os. FMR OB H&P: A/P - Problem List (1) High-risk in third trimester Current Visit: Yes Status: Acute Code(s): O09.93 - SUPERVISION OF HIGH RISK , UNSP, THIRD TRIMESTER (2) [place]erío's disease Current Visit: No Status: Acute Code(s): E27.1 - PRIMARY ADRENOCORTICAL INSUFFICIENCY (3) Bipolar 1 disorder Current Visit: No Status: Acute Code(s): F31.9 - BIPOLAR DISORDER, UNSPECIFIED (4) Rh negative status during Current Visit: Yes Status: Acute Code(s): O26.899 - OTH RELATED CONDITIONS, UNSPECIFIED TRIMESTER; Z67.91 - UNSPECIFIED BLOOD TYPE, RH NEGATIVE Disposition: Stable Discussion: Date/Time: 03/11/19 0227 Pelvic pain and contractions, rule out labor -Patient complains of ctx q 3 minutes at home and vaginal pressure and pain. -SVE revealed closed, thick and high cervix. No vaginal bleeding, abnormal discharge or leakage of fluids. -She has had GI symptoms which may explain increase in contractions. She has been adequately hydrating with PO fluids. -BPP/NST ordered, abdominal US ordered to evaluate for cervical length. FFN collected, will determine cervical length and determine if needs to be sent. -GC/CT swab collected -UA/UDS collected Chest pain, atypical -pain is likely musculoskeletal or GI in nature. 1 episode of pain. She has history of GERD and experienced the pain 2 hours after eating chicken nuggets. Her sternum is also exquisitely tender to palpation. Will monitor for recurrence. Comerío's Disease -patient takes three 5mg hydrocortisone tablets in the morning and two tablets at night for a total of 25mg. -has been seen by M, but not recently. -she has had stress dosing of steroids during this H/o genital herpes -started taking acyclovir yesterday Bipolar 1 disorder -stopped taking seroquel recently, still taking lamotrigine. May explain increase in agitation and difficulty sleeping. Pruritis, NOS -bile acids WNL. Has not been taking hydroxyzine and could only afford 6day supply of ursadiol as it was not covered by insurance. H/o pre-ecclampsia -recent work-up 03/04 negative pro:cr. -BP has been WNL since arrival. She has f/u appt scheduled with [facility] 03/12 @ 0820. Patient needs TDAP and Rhogam injections at clinic visit. She also needs GTT. REEVALUATION: US showed cervical length 3-4 cm, ESME ~24, and BPP 8/8. Contractions slowed down over the course of her stay. She is feeling well, she is not feeling her contractions as often as when she arrived. Tolerating PO hydration. Disposition: Stable, discharge home with follow up appt Tuesday. ER/ Labor precautions given, patient is understanding and in agreement with plan. Potassium 3.1 -- gave 40meq PO potassium. This H&P was discussed with Dr. Aviles and Dr. Cortes who agree with the above documentation and plan. Signature: Isamar Ayala MD PGY1
[2019-03-11] MEDS ORDERED: hydrALAZINE 20 MG/ML VIAL SLOW IVP PRN (02:43)
[2019-03-11 03:02] LABS: Bacteria/HPF 1+ HPF (None Seen); Bilirubin Negative (Negative); Blood, Urine Negative (Negative); Clarity Clear (Clear); Glucose, Urine (Dipstick) Normal (Negative); Leukocyte Negative Leu/uL (Negative); Nitrite Negative (Negative); Protein, Urine (Dipstick) Negative (Neg-Trace); RBC/HPF 0-3 HPF (0-3); Urobilinogen Normal mg/dL (Less than 2); WBC/HPF 0-3 HPF (0-3)
[2019-03-11 03:07] LABS: Amphetamine Not Detected (NotDetected); Barbiturates Screen Not Detected (NotDetected); Benzodiazepine Screen Not Detected (NotDetected); Cocaine Metabolite Screen Not Detected (NotDetected); Medtox Control Line Valid? VALID (VALID); Medtox Reader # READER 1; Methadone Not Detected (NotDetected); Methamphetamine Not Detected (NotDetected); Opiate Screen Not Detected (NotDetected); Oxycodone Screen Not Detected (NotDetected); Phencyclidine (PCP) Not Detected (NotDetected); THC/Cannabinoid Screen Not Detected (NotDetected); Tricyclic Screen Not Detected (NotDetected)
[2019-03-11 04:10] LABS: #Eosinphils 0.2 thou/uL (0.0-0.7); #Lymphocytes 2.4 thou/uL (1.20-3.40); #Monocytes 0.9 thou/uL (0.11-0.59); %Basophils 0.3 % (0.0-1.0); %Eosinophils 1.6 % (0.0-10.0); %Lymphocytes 23.2 % (21.0-51.0); %Monocytes 8.3 % (0.0-10.0); %Neutrophils 66.6 % (42.0-75.0); Mean Corpuscular HGB CONC 35.6 g/dL (32.0-36.0); Mean Corpuscular Hemoglobin 31.9 pg (27.0-31.0); Mean Corpuscular Volume 89.7 fL (78.0-98.0); Mean Platelet Volume 7.3 fL (7.4-10.4); Platelet Count 240 thou/uL (130-400); RBC Distribution Width 13.5 % (11.5-14.5); Red Blood Cell (RBC) Count 3.45 mill/uL (4.20-5.40); White Blood Cell (WBC) Count 10.5 thou/uL (4.8-10.8)
[2019-03-11 04:29] LABS: ALT (SGPT) 10 U/L (8-55); AST (SGOT) 15 U/L (5-34); Albumin 2.9 g/dL (3.5-5.0); Alkaline Phosphatase 95 U/L (40-110); Anion Gap 13 mmol/L (10-20); BUN (Urea Nitrogen) Less than 4 mg/dL (7.0-18.7); Bilirubin, Total 0.3 mg/dL (0.2-1.2); Calc. Creatinine Clearance 193 mL/min (70-130); Calcium 8.2 mg/dL (7.8-10.44); Carbon Dioxide 20 mmol/L (22-29); Chloride 108 mmol/L (98-107); Estimated GFR-MDRD Greater than 90; Globulin 2.4 g/dL (2.4-3.5); Glucose 106 mg/dL (70-105); Potassium 3.1 mmol/L (3.5-5.1); Protein, Total 5.3 g/dL (6.0-8.3); Sodium 138 mmol/L (136-145)
[2019-03-11 04:48] LABS: HIV (1/2) Antibody/Antigen Non-Reactive (NonReactive); HIV 1/2 INDEX 0.07 S/CO (<1.00); Syphilis Antibody Nonreactive (Nonreactive); Syphilis Antibody Index 0.03 S/CO (<1.00 Non-Reactive)
[2019-03-11] MEDS ORDERED: Potassium Chloride 20 MEQ TAB PO SCH (05:00)
--- NOTE | 2019-03-11 08:31 | ULT ---
PRELIMINARY REPORT/[facility]/EMERGENCY AFTER HOURS PROCEDURE HISTORY: CONTRACTIONS TECHNIQUE: TRANSABDOMINAL SONOGRAM OB WITH IMAGE DOCUMENTATION FINDINGS: SINGLE VIABLE INTRAUTERINE GESTATION. AMNIOTIC FLUID VOLUME HIGH NORMAL POSITION IS VERTEX PLACENTA IS RIGHT LATERAL NO ABRUPTIO OR PREVIA HEART RATE 125 MINUTE CERVIX NORMAL AND CLOSED GREATER THAN 3 CM THE LIMBS SPINE HEAD AND VISCERA ARE WITHOUT OBSERVABLE ABNORMALITY ON THIS STUDY. IMPRESSION: 34 WEEK 6 DAY VERTEX NORMAL GESTATION ESTIMATED WEIGHT 20/3/60 GRAMS EDC 04/16/2019 ELECTRONICALLY SIGNED BY: Rudy Churchill M.D. Mar 11, 2019 6:33:44 AM HEMSTITCHER FINAL REPORT EMERGENT AFTER HOURS OB ULTRASOUND: FINDINGS/IMPRESSION: I agree with the findings and impression given in the preliminary report per [facility] physici an. Single live intrauterine with estimated age of 34 weeks 6 days. The patient also has a normal biophysical profile. POS: [facility]
[2019-03-12 06:28] LABS: Chlamydia by PCR Not Detected (NotDetected); GC by PCR Not Detected (NotDetected)
== END 2019-03-11 04:53 | disposition home or self-care (01) ==
LOC: L&D/OP 01:13
PROVIDERS: ATTEND Family Medicine
DX: O99.89 Other specified diseases and conditions complicating pregnancy, childbirth and the puerperium (principal); R10.2 Pelvic and perineal pain; O47.03 False labor before 37 completed weeks of gestation, third trimester; O99.283 Endocrine, nutritional and metabolic diseases complicating pregnancy, third trimester; E27.1 Primary adrenocortical insufficiency; O99.343 Other mental disorders complicating pregnancy, third trimester; F41.9 Anxiety disorder, unspecified; Z3A.33 33 weeks gestation of pregnancy; Z79.899 Other long term (current) drug therapy; Z88.8 Allergy status to other drugs, medicaments and biological substances
CPT/HCPCS: 36415; 76815; 76819; 80053; 80306; 81001; 85025; 86780; 87086; 87389; 87491; 87591

== ENCOUNTER 2019-03-14 17:01 | Day surgery (SDC) | payer OTHER ==
[2019-03-14 18:18] VITALS: BMI 32.8
--- NOTE | 2019-03-14 18:37 | PDOC.FPROB ---
FMR OB H&P: HPI - History of Present Illness Chief Complaint: Flank Pain, Urinary Changes History of Present Illness: Pt is a at 33.5 weeks dated by 1T u/s, LEXI 04/27/19 with PMH significant for Pre-E in previous , anxiety, bipolar, depression, pseudoseizures, Wilkin's Disease, Catalan Disease, nephrolithiasis requiring lithotripsy, cholestasis affecting this , drug use most recently positive for marijuana, and non-compliance with medications who presents for a few day history of pelvic pain radiating to flank/back, dysuria, urgency, nausea. She states the symptoms are worse after she urinates. She denies hematuria, fevers. Pt complains of headaches, vision changes. Pt most recently seen in the hospital at the end of February with negative Pre-E workup. She does have history of migraines. She is not currently experiencing the symptoms. BP's were stable and on follow up at [facility] on 03/12 pt's BP's was ~130/80. Primary Care Physician: JAYDE Loredo/Yina FMR OB H&P: Current - Care : G8 Para: P5 Gestational age: 33.5 Due date: 04/28/19 Dating Criteria: 10.3 wk sono - OB Labs Blood type: O RH: negative HIV: negative RPR: negative HepBsAg: negative Rubella: immune Pap Smear: Hx of KEYUR 2 w/ leep 2001; Pap 2019 NILM GBS: unknown FMR OB H&P: History - Past Medical History PMH: Pre-E in previous , anxiety, bipolar, depression, pseudoseizures, Inder's Disease, Catalan Disease, nephrolithiasis requiring lithotripsy, cholestasis affecting this , drug use most recently positive for marijuana, and non-compliance with medications - OB History OB History: Hx of Pre-E in prior - 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 History: Hx of KEYUR 2 w/ leep 2001; 2018 NILM - Surgical History Sx History: Lithotripsy, Meniscus repair - Social History Social History: Denies smoking, alcohol, drug use - Family History Family History: Mother - Pre-E No defects in immediate family FMR OB H&P: Medications - Current Home Medications: Medication Instructions Recorded Confirmed Type Hydrocortisone [Cortef] 25 mg PO DAILY 01/15/17 03/11/19 History Rizatriptan Benzoate [Rizatriptan] 5 mg PO Q2HR PRN 01/27/18 03/11/19 History lamoTRIgine [LaMICtal] 200 mg PO DAILY 04/24/18 03/11/19 History clonazePAM [Clonazepam] 1 tab PO DAILY PRN 03/03/19 03/11/19 History Allergies/Adverse Reactions: Allergies Allergy/AdvReac Type Severity Reaction Status Date / Time bupropion [From Wellbutrin] Allergy Severe night Verified 03/03/19 22:10 terrors and anxiety metoclopramide [From Reglan] Allergy Intermediate aggitation Verified 03/03/19 22:10 prochlorperazine Allergy Intermediate agitation Verified 03/03/19 22:10 [From Compazine] FMR OB H&P: ROS - Review of Systems General: denies: fever/chills, weight/appetite/sleep changes Eyes: reports: vision changes ENT: denies: nasal congestion, rhinorrhea Cardiovascular: denies: chest pain, palpitation Respiratory: reports: shortness of breath. denies: cough, congestion Gastrointestinal: reports: abdominal pain. denies: indigestion, cramping, diarrhea, constipation Genitourinary (Female): reports: dysuria, polyuria. denies: hematuria Musculoskeletal: denies: pain, stiffness Neurologic: denies: numbness, syncope Integumentary: denies: itching, rash FMR OB H&P: Vital Signs - Heart Tones Baseline: 140 Variability: moderate FMR OB H&P: Physical Exam - Physical Exam General: NAD, awake, alert and oriented Neck: FROM, trachea midline Heart: RRR, normal S1/S2 General: CTAB, no respiratory distress, no wheezing Abdomen: soft, gravid Deviation from normal: mild tenderness Neurological: cranial nerves II through XII intact, sensation to pain,touch and proprioception grossly normal Skin: no rash, capillary refill <2 seconds Lymphatic: no purpura, no petechia Psychiatric: good judgement and insight FMR OB H&P: A/P - Problem List (1) Pseudoseizures Status: Acute Code(s): F44.5 - CONVERSION DISORDER WITH SEIZURES OR CONVULSIONS (2) Catalan disease Status: Acute (3) Hx of pre-eclampsia in prior , currently Status: Acute Code(s): O09.299 - SUPRVSN OF PREG W POOR REPRODCTV OR OBSTET HISTORY, UNSP TRI (4) Herpes Status: Acute Code(s): B00.9 - HERPESVIRAL INFECTION, UNSPECIFIED (5) Flank pain Status: Acute Code(s): R10.9 - UNSPECIFIED ABDOMINAL PAIN (6) Inder's disease Status: Acute Code(s): E27.1 - PRIMARY ADRENOCORTICAL INSUFFICIENCY (7) Bipolar 1 disorder Status: Acute Code(s): F31.9 - BIPOLAR DISORDER, UNSPECIFIED (8) Cholestasis during Status: Acute Code(s): O26.619 - LIVER AND BILIARY TRACT DISORD IN , UNSP TRIMESTER; K83.1 - OBSTRUCTION OF BILE DUCT (9) Migraine Status: Acute Code(s): G43.909 - MIGRAINE, UNSP, NOT INTRACTABLE, WITHOUT STATUS MIGRAINOSUS Disposition: Pt is a at 33.5 weeks dated by 1T u/s, LEXI 04/27/19 with PMH significant for Pre-E in previous , anxiety, bipolar, depression, pseudoseizures, Inder's Disease, Catalan Disease, nephrolithiasis requiring lithotripsy, cholestasis affecting this , drug use most recently positive for marijuana, and non-compliance with medications who presents for a few day history of pelvic pain radiating to flank/back, dysuria, urgency, nausea. # Flank Pain # Urinary changes - Negative Renal U/S for nephrolithiasis. Pt does have hx. U/A revealed calcium oxalate crystals. Encouraged good water intake. # Poor OB Follow up # High Risk due to multiple co-morbidities - pt seen by MFM 2-3 weeks ago - Growth U/S not performed - BPP 10/19 # Macrosomnia - Hadlock elevated compared to two days ago. Will need close follow up. Pt has not had growth u/s. # Hx of Pre-E No elevated BP's, recent work up negative # Herpes Active lesion in remission. Currently taking acyclovir. Discussion: Date/Time: 03/14/19 618 This H&P was discussed with [] and [] who agree with the above documentation and plan. Addendum - Attending - Attending Attestation Date/Time: 03/14/192017 I personally evaluated the patient and discussed the management with Dr. Allen I agree with the History, Examination, Assessment and Plan documented above with any addition or exceptions noted below. Appears to have small kidney stone or recently passed stone. Pain has improved. Patient has had poor follow up with PCP Dr. Bran. Encouraged follow up next week and to continue throughout the . Would recommend UDS in clinic. Ok to d/c to home. Tomy
[2019-03-14] MEDS ORDERED: Ondansetron ODT 4 MG TAB PO PRN (19:34)
[2019-03-14 19:49] LABS: #Eosinphils 0.1 thou/uL (0.0-0.7); #Lymphocytes 2.3 thou/uL (1.20-3.40); #Monocytes 0.9 thou/uL (0.11-0.59); %Basophils 0.3 % (0.0-1.0); %Eosinophils 0.7 % (0.0-10.0); %Lymphocytes 20.2 % (21.0-51.0); %Monocytes 7.8 % (0.0-10.0); Mean Corpuscular HGB CONC 34.6 g/dL (32.0-36.0); Mean Corpuscular Hemoglobin 30.6 pg (27.0-31.0); Mean Corpuscular Volume 88.6 fL (78.0-98.0); Mean Platelet Volume 7.2 fL (7.4-10.4); Platelet Count 242 thou/uL (130-400); RBC Distribution Width 13.2 % (11.5-14.5); Red Blood Cell (RBC) Count 3.58 mill/uL (4.20-5.40); White Blood Cell (WBC) Count 11.2 thou/uL (4.8-10.8)
[2019-03-14 19:50] LABS: Bilirubin Negative (Negative); Blood, Urine Negative (Negative); Clarity Turbid (Clear); Glucose, Urine (Dipstick) Normal (Negative); Leukocyte 25 Leu/uL (Negative); Nitrite Negative (Negative); Protein, Urine (Dipstick) 50 mg/dL (Neg-Trace); Urobilinogen Normal mg/dL (Less than 2)
[2019-03-14 19:56] LABS: Calcium Oxalate Crystals 2+ HPF (None Seen)
[2019-03-14 19:58] LABS: Bacteria/HPF Rare-Few HPF (None Seen); Urine Culture Reflex No No
[2019-03-14 20:15] LABS: ALT (SGPT) 12 U/L (8-55); AST (SGOT) 18 U/L (5-34); Albumin 2.9 g/dL (3.5-5.0); Alkaline Phosphatase 115 U/L (40-110); Anion Gap 11 mmol/L (10-20); BUN (Urea Nitrogen) Less than 4 mg/dL (7.0-18.7); Bilirubin, Total 0.3 mg/dL (0.2-1.2); Calc. Creatinine Clearance 195 mL/min (70-130); Calcium 8.6 mg/dL (7.8-10.44); Carbon Dioxide 22 mmol/L (22-29); Chloride 107 mmol/L (98-107); Estimated GFR-MDRD Greater than 90; Globulin 2.4 g/dL (2.4-3.5); Glucose 102 mg/dL (70-105); Magnesium 1.4 mg/dL (1.6-2.6); Potassium 3.1 mmol/L (3.5-5.1); Protein, Total 5.3 g/dL (6.0-8.3); Sodium 137 mmol/L (136-145)
--- NOTE | 2019-03-14 23:21 | ULT ---
EXAM: US Renal Bilateral STANDARD PROVIDED CLINICAL HISTORY: Flank pain COMPARISON: None FINDINGS: Right kidney measures approximately 13.8 x 4.8 x 5.3 cm and demonstrates no evidence for hydronephros is, sonographically apparent calculus or mass. Left kidney measures approximately 13.7 x 5 x 5.5 cm and demonstrates no evidence for hydronephrosis, sonographically apparent calculus or mass. Urinary bladder appears sonographically unremarkable. IMPRESSION: No evidence for hydronephrosis.
--- NOTE | 2019-03-14 23:24 | ULT ---
EXAM: US OB Complete STANDARD PROVIDED CLINICAL HISTORY: Low back pain COMPARISON: 03/03/2019 FINDINGS: Single live intrauterine gestation is documented in vertex presentation. heart rate of 145 bpm was documented. The placenta is posteriorly located without evidence for previa. The cervix is not visualized. Estimated gestational age based on this examination is 36 weeks 1 day which is discrepant with the clinical age provided. Estimated weight is 2836 +/- 420 g. Visualized anatomy is normal. Amniotic fluid index is 13.4. IMPRESSION: Single live intrauterine gestation as described.
--- NOTE | 2019-03-14 23:24 | ULT ---
EXAM: US Biophysical Profile PROVIDED CLINICAL HISTORY: well-being COMPARISON: None FINDINGS: tone: 2/2 breathin/2 movements: 2/2 Amniotic fluid: 2/2 Total: 8/8 IMPRESSION: Normal.
== END 2019-03-15 01:20 | disposition home or self-care (01) ==
LOC: L&D/OP 17:01
PROVIDERS: ATTEND Student in an Organized Health Care Education/Training Program
DX: O99.89 Other specified diseases and conditions complicating pregnancy, childbirth and the puerperium (principal); R10.2 Pelvic and perineal pain; O26.613 Liver and biliary tract disorders in pregnancy, third trimester; K83.1 Obstruction of bile duct; O99.283 Endocrine, nutritional and metabolic diseases complicating pregnancy, third trimester; E27.1 Primary adrenocortical insufficiency; O99.343 Other mental disorders complicating pregnancy, third trimester; F41.9 Anxiety disorder, unspecified; F31.9 Bipolar disorder, unspecified; F44.5 Conversion disorder with seizures or convulsions; O99.353 Diseases of the nervous system complicating pregnancy, third trimester; G43.909 Migraine, unspecified, not intractable, without status migrainosus; O36.63X0 Maternal care for excessive fetal growth, third trimester, not applicable or unspecified; O98.513 Other viral diseases complicating pregnancy, third trimester; B00.9 Herpesviral infection, unspecified; Z3A.33 33 weeks gestation of pregnancy; Z79.52 Long term (current) use of systemic steroids; Z79.899 Other long term (current) drug therapy; Z88.8 Allergy status to other drugs, medicaments and biological substances; Z91.14 Patient's other noncompliance with medication regimen
CPT/HCPCS: 36415; 76770; 76805; 76819; 80053; 81001; 83735; 85025; 87086; 99283; Q0162

== ENCOUNTER 2019-03-20 22:06 | Day surgery (SDC) | payer OTHER ==
[2019-03-20 22:45] VITALS: BMI 32.8
--- NOTE | 2019-03-20 22:49 | PDOC.FPROB ---
FMR OB H&P: HPI - History of Present Illness Chief Complaint: Clear Fluid, Int Contractions History of Present Illness: Pt is a at 34.5 weeks dated by 1T u/s, LEXI 04/27/19 with PMH significant for Pre-E in previous , anxiety, bipolar, depression, pseudoseizures, Hawkins's Disease, Catalan Disease, nephrolithiasis requiring lithotripsy, cholestasis affecting this , drug use most recently positive for marijuana, and non-compliance with medications who presents with possible ROM, painful contractions she feels every 3-4 mins. She denies vaginal bleeding. She states her symptoms are similar to when she went into labor in her past pregnancies. JAYDE - Loredo FMR OB H&P: Current - Care : 8 Para: [id number] Gestational age: 34.5 wks Due date: 04/27/19 Dating Criteria: 10.3 wk sono - OB Labs Blood type: O RH: negative HIV: negative RPR: negative HepBsAg: negative Rubella: immune Pap Smear: Hx of KEYUR 2 w/ leep 2001; Pap 2019 NILM GBS: unknown FMR OB H&P: History - Past Medical History PMH: Pre-E in previous , anxiety, bipolar, depression, pseudoseizures, Hawkins's Disease, Catalan Disease, nephrolithiasis requiring lithotripsy, cholestasis affecting this , drug use most recently positive for marijuana, and non-compliance with medications - OB History OB History: Hx of Pre-E in prior - 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: Hx of KEYUR 2 w/ leep 2001; 2019 NILM - Surgical History Sx History: Lithotripsy, Meniscus repair - Social History Social History: Denies smoking, alcohol, drug use - Family History Family History: Mother - Pre-E No defects in immediate family FMR OB H&P: Medications - Current Home Medications: Medication Instructions Recorded Confirmed Type Hydrocortisone [Cortef] 25 mg PO DAILY 01/15/17 03/20/19 History Rizatriptan Benzoate [Rizatriptan] 5 mg PO Q2HR PRN 01/27/18 03/20/19 History lamoTRIgine [LaMICtal] 200 mg PO DAILY 04/24/18 03/20/19 History clonazePAM [Clonazepam] 1 tab PO DAILY PRN 03/03/19 03/20/19 History Allergies/Adverse Reactions: Allergies Allergy/AdvReac Type Severity Reaction Status Date / Time bupropion [From Wellbutrin] Allergy Severe night Verified 03/03/19 22:10 terrors and anxiety metoclopramide [From Reglan] Allergy Intermediate aggitation Verified 03/03/19 22:10 prochlorperazine Allergy Intermediate agitation Verified 03/03/19 22:10 [From Compazine] FMR OB H&P: ROS - Review of Systems General: reports: weight/appetite/sleep changes. denies: fever/chills ENT: denies: nasal congestion, rhinorrhea Cardiovascular: denies: chest pain, palpitation, edema Respiratory: denies: cough, congestion, shortness of breath Gastrointestinal: denies: abdominal pain, indigestion Genitourinary (Female): reports: contractions. denies: incontinence, dysuria, hematuria, vaginal discharge, vaginal bleeding Neurologic: denies: numbness, syncope Psychological: reports: depression, anxiety FMR OB H&P: Vital Signs - Heart Tones Baseline: 140 Variability: moderate Phelan contractions every: 1 contraction FMR OB H&P: Physical Exam - Physical Exam General: NAD, awake, alert and oriented HEENT: PERRLA, EOMI Neck: FROM, trachea midline Heart: RRR, normal S1/S2, no edema General: CTAB, no respiratory distress, no wheezing Abdomen: soft, gravid, non-tender Musculoskeletal: normal gait and station Neurological: cranial nerves II through XII intact, sensation to pain,touch and proprioception grossly normal Skin: no rash, capillary refill <2 seconds Lymphatic: no purpura, no petechia Psychiatric: intact recent and remote memory FMR OB H&P: A/P - Problem List (1) Hawkins's disease Status: Acute Code(s): E27.1 - PRIMARY ADRENOCORTICAL INSUFFICIENCY (2) Bipolar 1 disorder Status: Acute Code(s): F31.9 - BIPOLAR DISORDER, UNSPECIFIED (3) Cholestasis during Status: Acute Code(s): O26.619 - LIVER AND BILIARY TRACT DISORD IN , UNSP TRIMESTER; K83.1 - OBSTRUCTION OF BILE DUCT (4) Herpes Status: Acute Code(s): B00.9 - HERPESVIRAL INFECTION, UNSPECIFIED (5) High-risk in third trimester Status: Acute Code(s): O09.93 - SUPERVISION OF HIGH RISK , UNSP, THIRD TRIMESTER (6) Hx of pre-eclampsia in prior , currently Status: Acute Code(s): O09.299 - SUPRVSN OF PREG W POOR REPRODCTV OR OBSTET HISTORY, UNSP TRI (7) Migraine Status: Acute Code(s): G43.909 - MIGRAINE, UNSP, NOT INTRACTABLE, WITHOUT STATUS MIGRAINOSUS (8) Catalan disease Status: Acute (9) Pseudoseizures Status: Acute Code(s): F44.5 - CONVERSION DISORDER WITH SEIZURES OR CONVULSIONS Disposition: Pt is a at 34.5 weeks dated by 1T u/s, LEXI 04/27/19 with PMH significant for Pre-E in previous , anxiety, bipolar, depression, pseudoseizures, Inder's Disease, Catalan Disease, nephrolithiasis requiring lithotripsy, cholestasis affecting this , drug use most recently positive for marijuana, and non-compliance with medications who presents for contractions, possible ROM: # Contractions/Possible ROM - 1 contraction noted during visit - Sterile speculum exam - did not appreciate pooling of fluids but did note white discharge in the vaginal canal. Pending amnisure negative - FHT's reassuring - 1 L bolus # Hx of Fever - influenza negative; afebrile on admission and pt did not take anti-pyretic # Possible Rachna Infection - VP3 Pending; call with results # Poor OB Follow up # High Risk due to multiple co-morbidities - pt seen by MFM 2-3 weeks ago - Growth U/S not performed - BPP 10/19 # Macrosomnia - Hadlock elevated compared to two days ago. Will need close follow up. Pt has not had growth u/s. # Hx of Pre-E No elevated BP's, recent work up negative # Herpes Active lesion in remission. Currently taking acyclovir. Dispo: Discharge Discussion: Date/Time: 03/20/19 7301 This H&P was discussed with [] and [] who agree with the above documentation and plan. Addendum - Attending - Attending Attestation Date/Time: 03/21/19 4807 I personally evaluated the patient and discussed the management with Dr. Allen I agree with the History, Examination, Assessment and Plan documented above with any addition or exceptions noted below - Amnisure negative; SSE- no pooling ; discharge c/w yeast infection; VP3 sent. Category 1 FHTs. Occasional ctx. Flu swab negative; D/c'd home after fluids. Follow-up at [facility] as scheduled.
[2019-03-20 23:27] LABS: Amnisure Test No Membranes Rupture (No Rupture)
[2019-03-20 23:28] LABS: Amnisure Internal Control QC ACCEPTABLE (ACCEPTABLE)
[2019-03-20] MEDS ORDERED: hydrALAZINE 20 MG/ML VIAL SLOW IVP PRN (23:35)
[2019-03-20] MEDS ORDERED: Lactated Ringer's 1,000 ML IV SCH (23:45)
[2019-03-21] MEDS ORDERED: FLU VACC QS2019-20(6MOS UP)/PF 60 MCG/0.5 ML SYRINGE IM ONE (09:00)
== END 2019-03-21 01:03 | disposition home or self-care (01) ==
LOC: L&D/OP 22:06
PROVIDERS: ATTEND Family Medicine
DX: O47.03 False labor before 37 completed weeks of gestation, third trimester (principal); O36.63X0 Maternal care for excessive fetal growth, third trimester, not applicable or unspecified; O98.513 Other viral diseases complicating pregnancy, third trimester; B00.9 Herpesviral infection, unspecified; O99.283 Endocrine, nutritional and metabolic diseases complicating pregnancy, third trimester; E27.1 Primary adrenocortical insufficiency; O26.613 Liver and biliary tract disorders in pregnancy, third trimester; K83.1 Obstruction of bile duct; O09.293 Supervision of pregnancy with other poor reproductive or obstetric history, third trimester; Z3A.34 34 weeks gestation of pregnancy; Z79.899 Other long term (current) drug therapy; Z88.8 Allergy status to other drugs, medicaments and biological substances
CPT/HCPCS: 84112; 87480; 87510; 87660; 87804; 96360; 99285

== ENCOUNTER 2019-03-23 04:01 | Inpatient (IN) | payer OTHER ==
[2019-03-23 04:39] VITALS: BMI 32.8
[2019-03-23] MEDS ORDERED: hydrALAZINE 20 MG/ML VIAL SLOW IVP PRN (05:17)
--- NOTE | 2019-03-23 05:24 | PDOC.FPROB ---
FMR OB H&P: HPI - History of Present Illness Chief Complaint: ctx Indentification: 33 yo @ 34.6 WGA by 10.3 wk US (LEXI 04/28/19) History of Present Illness: Pt presents with ctx. She reports they have been happening on and off for the past several days, but tonight around 0200 became more regular and painful. Describes them as 10/10 pain. She has to stop walking or talking while having one due to the severity. Nothing has made them better or worse. She reports they have been every 2-3 min. Reports continued itching on her palms and abdomen. Reports severe pressure in her pelvic region. +FM, denies LOF or vaginal bleeding, reports vaginal d/c Primary Care Physician: Dr. Bran/Dr. Loredo - TAMP FMR OB H&P: Current - Care : 8 Para: [id number] Gestational age: 34w6d Due date: 04/28/19 Dating Criteria: 10.3 wk sono Course/Complications: [place]'s disease, Substance abuse during , Pseudoseizures, Bipolar 1 disorder - OB Labs Blood type: O RH: negative HIV: negative RPR: negative HepBsAg: negative Rubella: immune Urine drug screen: positive (marijuana in the past) GBS: unknown FMR OB H&P: History - Past Medical History PMH: GERD Laura's / Adrenal insufficiency Marijuana use h/o preeclampsia in 3rd , h/o GDM in prior Anxiety and depression Bipolar 1 disorder Herpes, genital Seizure disorder Migraines Insomnia PTSD - OB History OB History: 5 prior vaginal deliveries Pre-eclampsia with 3rd h/o GDM in prior States she has had elevated blood pressures during this - 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 - Family History Family History: Mother Hepatitis C, CVA, recurrent losses, BPD Father - history unknown but possibly skin cancer Grandmother paternal- Crohn's disease, Thalassemia. Sister: Crohn's disease, BPD Son: Asthma FMR OB H&P: Medications - Current Home Medications: Medication Instructions Recorded Confirmed Type Hydrocortisone [Cortef] 25 mg PO DAILY 01/15/17 03/23/19 History Rizatriptan Benzoate [Rizatriptan] 5 mg PO Q2HR PRN 01/27/18 03/23/19 History lamoTRIgine [LaMICtal] 200 mg PO DAILY 04/24/18 03/23/19 History clonazePAM [Clonazepam] 1 tab PO DAILY PRN 03/03/19 03/23/19 History Famotidine 1 tab PO BID 03/23/19 03/23/19 History Ursodiol 1 tab PO DAILY 03/23/19 03/23/19 History Allergies/Adverse Reactions: Allergies Allergy/AdvReac Type Severity Reaction Status Date / Time bupropion [From Wellbutrin] Allergy Severe night Verified 03/03/19 22:10 terrors and anxiety metoclopramide [From Reglan] Allergy Intermediate aggitation Verified 03/03/19 22:10 prochlorperazine Allergy Intermediate agitation Verified 03/03/19 22:10 [From Compazine] FMR OB H&P: ROS - Review of Systems General: denies: fever/chills, weight/appetite/sleep changes Eyes: denies: vision changes, double vision ENT: denies: nasal congestion, rhinorrhea Cardiovascular: denies: chest pain, edema Respiratory: denies: cough, shortness of breath Gastrointestinal: reports: abdominal pain. denies: nausea Genitourinary (Female): reports: vaginal discharge, vaginal pain, contractions. denies: vaginal bleeding Neurologic: denies: numbness, seizures Integumentary: reports: itching. denies: lesions Hematologic/Lymphatic: denies: prolonged or excessive bleeding, enlarged lymph nodes FMR OB H&P: Vital Signs - Maternal Vital signs: BP 131/89, HR 106, RR 18, Temp 97.9, O2 sat 98% on RA - Heart Tones Baseline: 125 Variability: moderate Acceleration: present Deceleration: absent Category: category 1 Mclean contractions every: 2-4 min FMR OB H&P: Physical Exam - Physical Exam General: NAD, awake, alert and oriented HEENT: normocephalic and atraumatic, EOMI, MMM, conjunctiva clear, no scleral icterus, grossly normal vision, grossly normal hearing Neck: supple, FROM Heart: no murmurs/rubs/gallops, pulses present, no edema, other (tachycardic, regular rhythm) General: CTAB, no respiratory distress, good air movement, no rales/rhonchi, no wheezing Abdomen: soft, gravid, non-tender Musculoskeletal: pulses present Neurological: cranial nerves II through XII intact, no focal deficit Skin: no rash, good tugor, capillary refill <2 seconds Lymphatic: no unusual bruising or bleeding, no purpura Psychiatric: intact recent and remote memory, good judgement and insight - Pelvic Exam SVE: 04/07/3 @ 0530 FMR OB H&P: A/P - Problem List (1) High-risk in third trimester Current Visit: No Status: Acute Code(s): O09.93 - SUPERVISION OF HIGH RISK , UNSP, THIRD TRIMESTER Assessment and Plan: Pt presents with ctx. Cervix not in labor at this time, but pt kevyn regularly -Monitor FHT -Recheck cervix in 2 hours -PO fluids -BPP as pt missed her appt for BPP yesterday -Plan for IOL at 36-37 WGA that has not been scheduled yet, consider scheduling while pt here if determined to not be in labor -GBS swab collected today (2) Gestational HTN Current Visit: Yes Status: Acute Code(s): O13.9 - GESTATIONAL HTN W/O SIGNIFICANT PROTEINURIA, UNSP TRIMESTER Qualifiers: Trimester: third trimester Qualified Code(s): O13.3 - Gestational [ -induced] hypertension without significant proteinuria, third trimester Assessment and Plan: Pt with multiple elevated blood pressures during . She had a negative pre-eclampsia workup on 03/04. Initial BP 131/89, repeat 140 systolic Pt reporting vague symptoms of daily headache, SOB when lying flat, and swelling in her legs -Will check CBC, CMP, Urine prot:cr ratio -BPP as above -Serial BP's (3) Cholestasis during Current Visit: No Status: Acute Code(s): O26.619 - LIVER AND BILIARY TRACT DISORD IN , UNSP TRIMESTER; K83.1 - OBSTRUCTION OF BILE DUCT Qualifiers: Trimester: third trimester Qualified Code(s): O26.613 - Liver and biliary tract disorders in , third trimester; K83.1 - Obstruction of bile duct Assessment and Plan: Pt with negative bile acids, but symptoms consistent with cholestasis that have improved with ursodiol -Will continue ursodiol -BPP as above (4) Macrosomia Current Visit: Yes Status: Acute Code(s): P08.0 - EXCEPTIONALLY LARGE BABY Assessment and Plan: Hadlock 97%tile on 03/14/19 Pt on chronic steroids and has a h/o uncontrolled A2GDM in prior due to her steroid use. She has had non-compliance and poor follow up and has not completed her GTT this -Check fasting glucose -Will still need GTT done outpatient if not in active labor (5) Genital herpes affecting in third trimester Current Visit: Yes Status: Acute Code(s): O98.313 - OTH INFECT W SEXL MODE OF TRANSMISS COMP PREG, THIRD TRI; A60.09 - HERPESVIRAL INFECTION OF OTHER UROGENITAL TRACT Assessment and Plan: Pt had recent outbreak that has resolved and is currently on ppx acyclovir -Continue acyclovir until delivery (6) [place]'s disease Current Visit: No Status: Acute Code(s): E27.1 - PRIMARY ADRENOCORTICAL INSUFFICIENCY Assessment and Plan: Pt on prednisone 15mg qAM, 10mg qPM -Will need stress dose steroids during delivery (7) Bipolar 1 disorder Current Visit: No Status: Acute Code(s): F31.9 - BIPOLAR DISORDER, UNSPECIFIED Assessment and Plan: Pt on lamictal, continue this Pt recently stopped seroquel (8) Hx of pre-eclampsia in prior , currently Current Visit: No Status: Acute Code(s): O09.299 - SUPRVSN OF PREG W POOR REPRODCTV OR OBSTET HISTORY, UNSP TRI Assessment and Plan: Risk of developing pre-eclampsia -Checking pre-e labs as above (9) Catalan disease Current Visit: No Status: Acute Assessment and Plan: Stable, HR 106 at this time (10) Pseudoseizures Current Visit: No Status: Acute Code(s): F44.5 - CONVERSION DISORDER WITH SEIZURES OR CONVULSIONS Assessment and Plan: No recent seizures -Monitor (11) Rh negative status during Current Visit: No Status: Acute Code(s): O26.899 - OTH RELATED CONDITIONS, UNSPECIFIED TRIMESTER; Z67.91 - UNSPECIFIED BLOOD TYPE, RH NEGATIVE Assessment and Plan: Pt reports getting rhogam at 28 weeks at [place] [facility] [place]. We do not have official records of this -Will check antibody screen (12) Poor patient attendance of care Current Visit: Yes Status: Acute Code(s): O09.30 - SUPRVSN OF PREG W INSUFFICIENT ANTENAT CARE, UNSP TRIMESTER Assessment and Plan: Pt with poor compliance during in a high risk patient -Check BPP, TFT, Coags, GBS Disposition: Dispo pending results and repeat cervical exam Discussion: Date/Time: 03/23/19 0558 This H&P was discussed with Dr. Liu who agrees with the above documentation and plan. Signature: Whitley Bran MD, PGY-3 Addendum - Attending - Attending Attestation Date/Time: 03/23/19 1202 I personally evaluated the patient and discussed the management with Dr. Bran I agree with the History, Examination, Assessment and Plan documented above with any addition or exceptions noted below. My initial exam was at 1000 on date of service. 33 yo at 34.6 wk. Presented for CTx. Hx of laura's disease and possible cholestasis of . Found to have elevated BP slightly above baseline of 130s/80s. SVE 2/50/-2 and was unchanged 4 hrs later. Pre-eclampsia labs negative but found to have low potassium of 2.8. Denied palpitations. will admit for hypokalemia. Replacing potassium PO and IV and will recheck this afternoon. Will need to stay on L&D while having CTx. If Potassium increased above 3 on recheck and CTx resolve, can move to PP/Peds with Q shift NST. has not seen M. Will call [facility] to discuss patient and develop delivery plan. Starting steroids today for FLM in case she progresses. If potassium remains low, will obtain EKG and move to telemetry if Ctx have resolved. IV fluids and pain medications to help stop contractions. Case discussed with neonatology in the event that she delivers and baby requires NICU care. 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
[2019-03-23 06:35] LABS: #Eosinphils 0.1 thou/uL (0.0-0.7); #Lymphocytes 2.4 thou/uL (1.20-3.40); #Monocytes 0.8 thou/uL (0.11-0.59); #Neutrophils 5.6 thou/uL (1.40-6.50); %Basophils 0.1 % (0.0-1.0); %Eosinophils 1.2 % (0.0-10.0); %Lymphocytes 26.5 % (21.0-51.0); %Monocytes 9.3 % (0.0-10.0); Hemoglobin 10.5 g/dL (12.0-16.0); Mean Corpuscular HGB CONC 34.6 g/dL (32.0-36.0); Mean Corpuscular Hemoglobin 30.8 pg (27.0-31.0); Mean Corpuscular Volume 88.9 fL (78.0-98.0); Mean Platelet Volume 7.5 fL (7.4-10.4); Platelet Count 253 thou/uL (130-400); RBC Distribution Width 13.2 % (11.5-14.5); Red Blood Cell (RBC) Count 3.42 mill/uL (4.20-5.40); White Blood Cell (WBC) Count 8.9 thou/uL (4.8-10.8)
[2019-03-23 06:41] LABS: Prothrombin Time 13.2 SEC (12.0-14.7)
[2019-03-23 06:56] LABS: ALT (SGPT) 10 U/L (8-55); AST (SGOT) 16 U/L (5-34); Albumin 2.7 g/dL (3.5-5.0); Alkaline Phosphatase 118 U/L (40-110); Anion Gap 12 mmol/L (10-20); BUN (Urea Nitrogen) 5 mg/dL (7.0-18.7); Bilirubin, Total 0.2 mg/dL (0.2-1.2); Calc. Creatinine Clearance 192 mL/min (70-130); Calcium 8.8 mg/dL (7.8-10.44); Carbon Dioxide 23 mmol/L (22-29); Chloride 106 mmol/L (98-107); Estimated GFR-MDRD Greater than 90; Globulin 2.3 g/dL (2.4-3.5); Glucose 92 mg/dL (70-105); Magnesium 1.1 mg/dL (1.6-2.6); Sodium 138 mmol/L (136-145)
[2019-03-23 07:06] LABS: Potassium 2.8 mmol/L (3.5-5.1)
[2019-03-23 07:13] LABS: Free T4 (Free Thyroxine) 0.71 ng/dL (0.70-1.48); Thyroid Stimulating Hormone 0.2207 uIU/mL (0.35-4.94)
[2019-03-23 07:49] LABS: Protein, Urine Random Quant Less than 10 mg/dL (1-14)
--- NOTE | 2019-03-23 07:51 | ULT ---
Biophysical profile: 03/23/2019 COMPARISON: None HISTORY: Gestational hypertension, contractions TECHNIQUE: Multiplanar grayscale sonographic imaging of the gravid uterus obtained. FINDINGS: Cervical length is approximately 3.2 cm. There is an intrauterine gestation demonstrating a vertex presentation. Placenta located posteriorly with no evidence for previa or abruption. heart rate is 130 bpm. Amniotic fluid index is 11.7 cm. [employer] Fitter reports an 8 out of 8 biophysical profile score with 2 out of 2 scores for amniotic fluid , breathing, tone, and movements. IMPRESSION: 8 out of 8 biophysical profile.
[2019-03-23] MEDS ORDERED: Magnesium 2 GM/50 ML 2 GM in Premix Bag 1 BAG IVPB SCH ×2 (08:15→17:15)
[2019-03-23] MEDS ORDERED: Potassium Chloride 20 MEQ TAB PO SCH ×2 (08:15)
[2019-03-23] MEDS ORDERED: Acetaminophen 325 MG TAB PO SCH (08:30)
[2019-03-23] MEDS ORDERED: Potassium Chloride 20 MEQ in Premix Bag 1 BAG IVPB SCH (08:30)
--- NOTE | 2019-03-23 08:52 | PDOC.FM ---
- Objective Vital Signs & Weight: Weight Weight 97.976 kg Result Diagrams: 03/23/19 06:26 03/23/19 06:26
[2019-03-23] MEDS: Lactated Ringer's 1,000 ML IV SCH ×2 (08:58→19:00)
[2019-03-23] MEDS ORDERED: Morphine 10 MG/ML VIAL ONE (09:49)
[2019-03-23] MEDS ORDERED: Morphine 4 MG/ML VIAL IM SCH (10:00)
[2019-03-23 11:00] LABS: Bilirubin Negative (Negative); Blood, Urine Trace (Negative); Clarity Clear (Clear); Glucose, Urine (Dipstick) Normal (Negative); Leukocyte 75 Leu/uL (Negative); Nitrite Negative (Negative); Protein, Urine (Dipstick) Negative (Neg-Trace); Squamous Epithelial None Seen HPF (0-3); Urobilinogen Normal mg/dL (Less than 2)
[2019-03-23 11:02] LABS: Amphetamine Not Detected (NotDetected); Barbiturates Screen Not Detected (NotDetected); Benzodiazepine Screen Detected (NotDetected); Cocaine Metabolite Screen Not Detected (NotDetected); Medtox Control Line Valid? VALID (VALID); Medtox Reader # READER 1; Methadone Not Detected (NotDetected); Methamphetamine Not Detected (NotDetected); Opiate Screen Not Detected (NotDetected); Oxycodone Screen Not Detected (NotDetected); Phencyclidine (PCP) Not Detected (NotDetected); THC/Cannabinoid Screen Not Detected (NotDetected); Tricyclic Screen Not Detected (NotDetected)
[2019-03-23] MEDS ORDERED: Promethazine HCl 25 MG/ML VIAL IM PRN (11:08)
[2019-03-23] MEDS ORDERED: Ondansetron PF 4 MG/2 ML Vial IVP PRN (11:08)
[2019-03-23 11:13] LABS: Bacteria/HPF None Seen HPF (None Seen); Urine Culture Reflex Yes Yes
[2019-03-23 14:01] LABS: Anion Gap 14 mmol/L (10-20); BUN (Urea Nitrogen) 5 mg/dL (7.0-18.7); Calc. Creatinine Clearance 178 mL/min (70-130); Calcium 8.3 mg/dL (7.8-10.44); Carbon Dioxide 17 mmol/L (22-29); Chloride 107 mmol/L (98-107); Estimated GFR-MDRD Greater than 90; Glucose 119 mg/dL (70-105); Magnesium 1.4 mg/dL (1.6-2.6); Potassium 3.3 mmol/L (3.5-5.1); Sodium 135 mmol/L (136-145)
[2019-03-23] MEDS ORDERED: Hydrocortisone 10 mg Tablet PO SCH ×2 (14:30→20:00)
--- NOTE | 2019-03-23 14:31 | PDOC.EVN ---
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 Morgan who reports pt should be on Hydrocortisone 15mg qAM, 5mg in the afternoon, and 5mg at night. She also recommended stress dose at delivery but otherwise had no recommendation for changes in care. Discussed case with MFM as well who recommends delivery at 37w and stress dose of 100mg IV q8H for 24h during delivery. Also had no further recommendations. Medications have been updated. Will continue current plan of care.
[2019-03-23] MEDS: Betamet Acet/Betamet Na Ph 30 MG/5 ML VIAL IM SCH (14:37)
[2019-03-23] MEDS: Ursodiol 300 MG CAP PO SCH (17:41)
[2019-03-23] MEDS: Acyclovir 400 mg Tablet PO SCH (20:49)
[2019-03-23] MEDS ORDERED: FLU VACC QS2019-20(6MOS UP)/PF 60 MCG/0.5 ML SYRINGE IM ONE (21:00)
--- NOTE | 2019-03-23 22:14 | PDOC.EVN ---
Event Note - Event Note Event Note: Called by nurse due to pt kevyn. She reported ctx q4min and back pain. She reports it is worse than this morning and is 10/10. FHT baseline 115/mod teri/+accels/no decels SVE: 04/07/-3 @ 2210 Continue NST and will give morphine for pain Attending note: Unchanged exam. No evidence of labor. Tomy
[2019-03-23] MEDS ORDERED: Morphine 2 MG/ML SYRINGE SLOW IVP SCH (22:15)
[2019-03-24] MEDS ORDERED: Melatonin 3 MG TAB PO PRN (00:44)
[2019-03-24] MEDS: Lactated Ringer's 1,000 ML IV SCH (04:11)
[2019-03-24] MEDS ORDERED: Acetaminophen 325 MG TAB PO SCH (04:45)
--- NOTE | 2019-03-24 05:18 | PDOC.OBAPN ---
FMR OB AP PN: Sub - Interval History Hospital Day: 2 Chief Complaint: painful ctx Indentification: 33yo at 35.0 by 10.3 US Interval History: Had painful ctx overnight, SVE unchanged FMR OB AP PN: Obj - Maternal Vital signs: BP: 127/79 HR: 114 RR: 16 Tmax: 97.8 Pox: 98% on RA - Heart Tones Baseline: 130 Variability: moderate Acceleration: present Deceleration: absent Category: category 1 [place] contractions every: q3-15 min FMR OB AP PN: Exam - Physical Exam General: NAD, awake, alert and oriented Heart: RRR, normal S1/S2, no murmurs/rubs/gallops, no edema General: CTAB, no respiratory distress, good air movement Abdomen: gravid, non-tender Deviation from normal: no palpable ctx. Musculoskeletal: pulses present FMR OB AP PN: Data - Labs Lab results: Laboratory Results - last 24 hr 03/23/19 03/23/19 03/23/19 06:26 06:26 06:26 WBC RBC Hgb Hct MCV MCH MCHC RDW Plt Count MPV Neutrophils % Lymphocytes % Monocytes % Eosinophils % Basophils % Neutrophils # Lymphocytes # Monocytes # Eosinophils # Basophils # PT 13.2 INR 1.0 Sodium 138 Potassium 2.8 L* Chloride 106 Carbon Dioxide 23 Anion Gap 12 BUN 5 L Creatinine 0.64 Estimated GFR (MDRD) Greater than 90 Glucose 92 POC Glucose Calcium 8.8 Magnesium 1.1 L Total Bilirubin 0.2 AST 16 ALT 10 Alkaline Phosphatase 118 H Serum Total Protein 5.0 L Albumin 2.7 L Globulin 2.3 L Albumin/Globulin Ratio 1.2 Free T4 0.71 Free T3 4.24 H TSH 3rd Generation 0.2207 L Urine Color Urine Clarity Urine pH Ur Specific [place] Urine Protein Urine Glucose (UA) Urine Ketones Urine Blood Urine Nitrite Urine Bilirubin Urine Urobilinogen Ur Leukocyte Esterase Urine RBC Urine WBC Ur Squamous Epith Cells Urine Bacteria Urine Culture Reflexed U Random Total Protein Urine Creatinine Urine Opiates Screen Ur Oxycodone Screen Urine Methadone Screen Ur Propoxyphene Screen Ur Barbiturates Screen Ur Tricyclics Screen Ur Phencyclidine Scrn Ur Amphetamines Screen U Methamphetamines Scrn U Benzodiazepines Scrn U Cocaine Metab Screen U Cannabinoids Screen Drug Screen Comment Antibody Screen 03/23/19 03/23/19 03/23/19 06:26 06:26 06:45 WBC 8.9 RBC 3.42 L Hgb 10.5 L Hct 30.4 L MCV 88.9 MCH 30.8 MCHC 34.6 RDW 13.2 Plt Count 253 MPV 7.5 Neutrophils % 63.0 Lymphocytes % 26.5 Monocytes % 9.3 Eosinophils % 1.2 Basophils % 0.1 Neutrophils # 5.6 Lymphocytes # 2.4 Monocytes # 0.8 H Eosinophils # 0.1 Basophils # 0.0 PT INR Sodium Potassium Chloride Carbon Dioxide Anion Gap BUN Creatinine Estimated GFR (MDRD) Glucose POC Glucose Calcium Magnesium Total Bilirubin AST ALT Alkaline Phosphatase Serum Total Protein Albumin Globulin Albumin/Globulin Ratio Free T4 Free T3 TSH 3rd Generation Urine Color Urine Clarity Urine pH Ur Specific [place] Urine Protein Urine Glucose (UA) Urine Ketones Urine Blood Urine Nitrite Urine Bilirubin Urine Urobilinogen Ur Leukocyte Esterase Urine RBC Urine WBC Ur Squamous Epith Cells Urine Bacteria Urine Culture Reflexed U Random Total Protein Less than 10 Urine Creatinine 31.60 L Urine Opiates Screen Ur Oxycodone Screen Urine Methadone Screen Ur Propoxyphene Screen Ur Barbiturates Screen Ur Tricyclics Screen Ur Phencyclidine Scrn Ur Amphetamines Screen U Methamphetamines Scrn U Benzodiazepines Scrn U Cocaine Metab Screen U Cannabinoids Screen Drug Screen Comment Antibody Screen NEGATIVE 03/23/19 03/23/19 03/23/19 06:45 10:30 13:28 WBC RBC Hgb Hct MCV MCH MCHC RDW Plt Count MPV Neutrophils % Lymphocytes % Monocytes % Eosinophils % Basophils % Neutrophils # Lymphocytes # Monocytes # Eosinophils # Basophils # PT INR Sodium 135 L Potassium 3.3 L Chloride 107 Carbon Dioxide 17 L Anion Gap 14 BUN 5 L Creatinine 0.69 Estimated GFR (MDRD) Greater than 90 Glucose 119 H POC Glucose Calcium 8.3 Magnesium 1.4 L Total Bilirubin AST ALT Alkaline Phosphatase Serum Total Protein Albumin Globulin Albumin/Globulin Ratio Free T4 Free T3 TSH 3rd Generation Urine Color Light-Yellow Urine Clarity Clear Urine pH 6.5 Ur Specific [place] 1.008 Urine Protein Negative Urine Glucose (UA) Normal Urine Ketones Trace A Urine Blood Trace A Urine Nitrite Negative Urine Bilirubin Negative Urine Urobilinogen Normal Ur Leukocyte Esterase 75 A Urine RBC 4-6 A Urine WBC 4-6 A Ur Squamous Epith Cells None Seen Urine Bacteria None Seen Urine Culture Reflexed Yes A U Random Total Protein Urine Creatinine Urine Opiates Screen Not Detected Ur Oxycodone Screen Not Detected Urine Methadone Screen Not Detected Ur Propoxyphene Screen Not Detected Ur Barbiturates Screen Not Detected Ur Tricyclics Screen Not Detected Ur Phencyclidine Scrn Not Detected Ur Amphetamines Screen Not Detected U Methamphetamines Scrn Not Detected U Benzodiazepines Scrn Detected H U Cocaine Metab Screen Not Detected U Cannabinoids Screen Not Detected Drug Screen Comment Antibody Screen 03/23/19 03/23/19 03/24/19 14:14 20:52 04:55 WBC RBC Hgb Hct MCV MCH MCHC RDW Plt Count MPV Neutrophils % Lymphocytes % Monocytes % Eosinophils % Basophils % Neutrophils # Lymphocytes # Monocytes # Eosinophils # Basophils # PT INR Sodium Potassium Chloride Carbon Dioxide Anion Gap BUN Creatinine Estimated GFR (MDRD) Glucose POC Glucose 114 H 149 H 156 H Calcium Magnesium Total Bilirubin AST ALT Alkaline Phosphatase Serum Total Protein Albumin Globulin Albumin/Globulin Ratio Free T4 Free T3 TSH 3rd Generation Urine Color Urine Clarity Urine pH Ur Specific [place] Urine Protein Urine Glucose (UA) Urine Ketones Urine Blood Urine Nitrite Urine Bilirubin Urine Urobilinogen Ur Leukocyte Esterase Urine RBC Urine WBC Ur Squamous Epith Cells Urine Bacteria Urine Culture Reflexed U Random Total Protein Urine Creatinine Urine Opiates Screen Ur Oxycodone Screen Urine Methadone Screen Ur Propoxyphene Screen Ur Barbiturates Screen Ur Tricyclics Screen Ur Phencyclidine Scrn Ur Amphetamines Screen U Methamphetamines Scrn U Benzodiazepines Scrn U Cocaine Metab Screen U Cannabinoids Screen Drug Screen Comment Antibody Screen FMR OB AP PN: A/P - Problem List (1) High-risk in third trimester Status: Acute Code(s): O09.93 - SUPERVISION OF HIGH RISK , UNSP, THIRD TRIMESTER (2) Bancroft's disease Status: Chronic Code(s): E27.1 - PRIMARY ADRENOCORTICAL INSUFFICIENCY (3) Gestational HTN Status: Acute Code(s): O13.9 - GESTATIONAL HTN W/O SIGNIFICANT PROTEINURIA, UNSP TRIMESTER Qualifiers: Trimester: third trimester Qualified Code(s): O13.3 - Gestational [ -induced] hypertension without significant proteinuria, third trimester (4) Macrosomia Status: Acute Code(s): P08.0 - EXCEPTIONALLY LARGE BABY (5) Poor patient attendance of care Status: Acute Code(s): O09.30 - SUPRVSN OF PREG W INSUFFICIENT ANTENAT CARE, UNSP TRIMESTER (6) Cholestasis during Status: Chronic Code(s): O26.619 - LIVER AND BILIARY TRACT DISORD IN , UNSP TRIMESTER; K83.1 - OBSTRUCTION OF BILE DUCT Qualifiers: Trimester: third trimester Qualified Code(s): O26.613 - Liver and biliary tract disorders in , third trimester; K83.1 - Obstruction of bile duct (7) Hx of pre-eclampsia in prior , currently Status: Chronic Code(s): O09.299 - SUPRVSN OF PREG W POOR REPRODCTV OR OBSTET HISTORY, UNSP TRI (8) Rh negative status during Status: Chronic Code(s): O26.899 - OTH RELATED CONDITIONS, UNSPECIFIED TRIMESTER; Z67.91 - UNSPECIFIED BLOOD TYPE, RH NEGATIVE Qualifiers: Trimester: third trimester Qualified Code(s): O26.893 - Other specified related conditions, third trimester; Z67.91 - Unspecified blood type, Rh negative (9) Genital herpes affecting in third trimester Status: Chronic Code(s): O98.313 - OTH INFECT W SEXL MODE OF TRANSMISS COMP PREG, THIRD TRI; A60.09 - HERPESVIRAL INFECTION OF OTHER UROGENITAL TRACT Disposition: 33yo at 35w by 10.3wk US admitted with Hypokalemia and Hypomagnesemia, with high risk d/t cholestasis, gHTN, Addisons, genital herpes, hx of drug abuse, and poor compliance. Hypokalemia and Hypomagnesemia: - improved from yesterday. Will give one PO dose K-dur and IV Mag x1 Ctx vs Uterine Irritability: - s/p Celestone x1, plan for repeat today - GBS collected yesterday - Will give Tylenol #3 for pain control - NST reactive - SVE unchanged - UA with LE and WBC, pt asymptomatic, Ucx pending - will treat for candidal infection since has hx and risk factors. Addisons Disease: - per Endocrinoligst, Dr. Morgan, have continued home dose Hydrocortisone gHTN: - No severe range pressures reported - PreE labs wnl - continue q4h VS and home monitoring once discharged Cholestasis in - continue Ursodiol per MFM recs Genital Herpes: - on ppx Acyclovir Hx of drug abuse per chart review: - UDS+ for benzos, Tx [employer] shows last Rx in 08/2018 - limit use of narcotics for pain control Poor Compliance and F/u: - encourage f/u outpatient. Hyperglycemia: - likely 2/2 steroid use - needs GTT outpt. Dispo: Likely d/c today after 2nd Celestone injection. Pt has appt scheduled at [facility] next week. Discussion: Date/Time: 03/24/19516 This H&P was discussed with [] and [] who agree with the above documentation and plan. Addendum - Attending - Attending Attestation Date/Time: 03/24/19 8050 I personally evaluated the patient and discussed the management with Dr. Painter I agree with the History, Examination, Assessment and Plan documented above with any addition or exceptions noted below. 33 yo female at 35.0 wks LEXI: 04/28/19 PCP: Yina 1. sIUP: Medical record reviewed. Poor follow up. Anatomy done during triage visit. Did not follow up with M. 2. Rh negative: Rhogam at [facility]. Unable to find documentation. Patient reports she has shot record at home. No trauma or vaginal bleeding. 3. gHTN: Normotensive to mild range. Labs WNL. No proteinuria. Concerned this is related to steroid use. Asymptomatic. Continue weekly testing. IOL at 37 wks. Given BMZ on 03/24 and 03/25. BPP /. NST remains reactive. +FM. 4. IHCP: Unsure true dx. Fasting BA < 1.0. Puritis for short time. On minimal ursodiol. Unsure if patient taking. No other lab abnormalities. 5. sinus tachycardia: Present with every . Declined cards. No structural complications. 6. Adrenal insuficiency: Unsure if true dx. Need to adjust steroid dosing. Patient only taking 5 mg BID to TID. Patient infrequent on taking medications. No evidence of complications when off medications. During a significant period of time out of did not take medications and remained asymptomatic. Trouble with follow up for retesting. Now seeing new endo. 7. Opiate and Benzo addiction: UDS pos. Concern for withdrawal. Has been off opiates for majority of . 8. bipolar d/o with hx of psychosis: Has been fired by psych. Is suppose to establish care with [facility]. 9. psuedo seizures 10. SAB x2 11. LGA fetus 12. HSV: Continue ppx. Will need pelvic exam during labor. 13. Contractions: No s/sx of labor. Unchanged exam. 14. Electrolyte abnormalities: Not consistent with stated adrenal disease. Continue to replace. Decrease steroid dosing. 15. Back pain: MSK. Need OMT. Ok to dc to home after second dose of BMZ. Follow up with [facility] appt next week. Continue weekly testing. Will need repeat growth and anatomy follow up at 36 wks IOL at 37 wks. Needs to continue glucose monitoring at home due to inaccurate testing from BMZ and daily steroid use. Tomy
[2019-03-24 07:16] LABS: Anion Gap 15 mmol/L (10-20); BUN (Urea Nitrogen) Less than 4 mg/dL (7.0-18.7); Calc. Creatinine Clearance 189 mL/min (70-130); Calcium 7.9 mg/dL (7.8-10.44); Carbon Dioxide 18 mmol/L (22-29); Chloride 108 mmol/L (98-107); Estimated GFR-MDRD Greater than 90; Glucose 134 mg/dL (70-105); Magnesium 1.5 mg/dL (1.6-2.6); Potassium 3.4 mmol/L (3.5-5.1); Sodium 138 mmol/L (136-145)
[2019-03-24] MEDS ORDERED: Hydrocortisone 10 mg Tablet PO SCH ×2 (08:00→14:00)
[2019-03-24] MEDS ORDERED: Acetaminophen 325 MG TAB PO PRN (08:13)
[2019-03-24] MEDS ORDERED: Clotrimazole 2% 3 Day Vag Cr 22.2 GM TUBE VAG SCH (08:15)
[2019-03-24] MEDS ORDERED: Sodium Chloride 0.9% (PF) 10 ML VIAL FS PRN (08:25)
[2019-03-24] MEDS: Acetaminophen/Codeine 30-300mg Tablet PO PRN ×2 (08:33→14:38)
[2019-03-24] MEDS ORDERED: Pantoprazole 40 MG VIAL IVP SCH ×2 (09:00)
[2019-03-24] MEDS: Ursodiol 300 MG CAP PO SCH ×2 (09:53→12:42)
[2019-03-24] MEDS: Acyclovir 400 mg Tablet PO SCH (09:54)
[2019-03-24] MEDS ORDERED: Magnesium 2 GM/50 ML 2 GM in Premix Bag 1 BAG IVPB SCH (10:00)
[2019-03-24] MEDS ORDERED: Potassium Chloride 20 MEQ TAB PO SCH (10:00)
[2019-03-24] MEDS: Betamet Acet/Betamet Na Ph 30 MG/5 ML VIAL IM SCH (14:39)
[2019-03-24 16:17] VITALS: TEMP 98.3
[2019-03-24 18:22] VITALS: BP 144/93
== END 2019-03-24 17:40 | disposition home health service (06) | DRG 831 ==
LOC: L&D/OP 04:01 → 3SW 16:45
PROVIDERS: ADMIT Student in an Organized Health Care Education/Training Program; ATTEND Student in an Organized Health Care Education/Training Program
DX: O13.3 Gestational [pregnancy-induced] hypertension without significant proteinuria, third trimester (principal); K83.1 Obstruction of bile duct; O26.613 Liver and biliary tract disorders in pregnancy, third trimester; O99.323 Drug use complicating pregnancy, third trimester; O98.513 Other viral diseases complicating pregnancy, third trimester; O99.343 Other mental disorders complicating pregnancy, third trimester; Z3A.34 34 weeks gestation of pregnancy; F31.9 Bipolar disorder, unspecified; O99.283 Endocrine, nutritional and metabolic diseases complicating pregnancy, third trimester; E87.6 Hypokalemia; E83.42 Hypomagnesemia; F11.90 Opioid use, unspecified, uncomplicated; B00.9 Herpesviral infection, unspecified; O36.63X0 Maternal care for excessive fetal growth, third trimester, not applicable or unspecified
CPT/HCPCS: 36415; 36416; 76819; 80048; 80053; 80306; 81001; 82570; 83735; 84156; 84439; 84443; 84481; 85025; 85610; 86850; 87081; 87086; C9113; J0702; J2270; J3475; J3480

== ENCOUNTER 2019-03-25 10:59 | Day surgery (SDC) | payer OTHER ==
[2019-03-25 11:35] VITALS: BMI 32.8
[2019-03-25] MEDS ORDERED: hydrALAZINE 20 MG/ML VIAL SLOW IVP PRN (11:38)
--- NOTE | 2019-03-25 12:02 | PDOC.FPROB ---
FMR OB H&P: HPI - History of Present Illness Chief Complaint: decreased movement Indentification: 33YO @ 35.2 WGA by 10.3 week US (LEXI 04/28/19) History of Present Illness: Patient presents with a CC of decreased movement since being discharged from the hospital yesterday. Reports her baby normally moves frequently and since she was discharged she has not felt any movment at home. Tried drinking cold liquids, taking a bath, etc. and nothing induced movement so she decided to come to L&D for further evaluation. Reports contractions that have been occurring on and off for weeks now but are not that uncomfortable. Also reports a sore throat and generalized shaking since this AM. Reports she was shaking some before her discharge yesterday & MDs told her it was likely from her steroid injections but she states it is much worse this AM. Has been nauseous and vomited x1 since arrival to L&D but no fever/chills or diarrhea/ constipation. Denies any headache, chest pain, dysuria or hematuria but does endorse increased SOB, RUQ pain with radiation across her abdomen and worsening LE edema. Denies any vaginal LOF, bleeding, abnormal discharge, pain or itching. Also reports a warm, intense lower back pain since this AM as well. Primary Care Physician: OMER Bran/Facundo FMR OB H&P: Current - Care : 8 Para: [id number] Gestational age: 35.2 Due date: 04/28/19 Dating Criteria: 10.3 week US Course/Complications: cholestasis in , laura's disease, pseudoseizures, bipolar 1 disorder - OB Labs Blood type: O RH: negative HIV: negative RPR: negative HepBsAg: negative Rubella: immune Urine drug screen: positive GBS: unknown (pending from 03/23/19 admission) FMR OB H&P: History - Past Medical History PMH: laura's disease, cholestasis in , GERD, bipolar 1, anxiety & depression, seizure disorder (psychogenic), migraines, genital herpes, insomnia , PTSD, h/o pre-e in 3rd & GDM in prior - OB History OB History: 5 prior SVDs pre-e w/ 3rd h/o GDM in prior Reported elevated BPs this - [employer] History [employer] History: h/o cervical dysplasia genital herpes on acyclovir - Surgical History Sx History: kidney stone removal 03/2016 ex-lap for possible ectopic July 2016 LEEP 2002 left miniscus repair 04/2018 - Social History Social History: Denies TAD but had a UDS + for marijuana in the past. - Family History Family History: Mother Hepatitis C, CVA, recurrent losses, BPD Father - history unknown but possibly skin cancer Grandmother paternal- Crohn's disease, Thalassemia. Sister: Crohn's disease, BPD Son: Asthma FMR OB H&P: Medications - Current Home Medications: Medication Instructions Recorded Confirmed Type Rizatriptan Benzoate [Rizatriptan] 5 mg PO Q2HR PRN 01/27/18 03/23/19 History lamoTRIgine [LaMICtal] 200 mg PO DAILY 04/24/18 03/23/19 History Famotidine 1 tab PO BID 03/23/19 03/23/19 History Acyclovir [Zovirax] 400 mg PO BID tab 03/24/19 Rx Clotrimazole 2% 3 Day Vag Cr 1 gm VAG NOW #2 tube 03/24/19 Rx [Clotrimazole 2% 3 Day Vaginal Cream] Hydrocortisone [Cortef] 5 mg PO 1400 tab 03/24/19 Rx Hydrocortisone [Cortef] 5 mg PO 2000 tab 03/24/19 Rx Hydrocortisone [Cortef] 15 mg PO 0800 tab 03/24/19 Rx Ursodiol [Actigal] 300 mg PO TID-WM cap 03/24/19 Rx Magnesium Citrate [Citrate of 300 ml PO NOW #3 bot 03/25/19 Rx Magnesia] Potassium Chloride [K-Dur] 40 meq PO NOW #14 tab 03/25/19 Rx Allergies/Adverse Reactions: Allergies Allergy/AdvReac Type Severity Reaction Status Date / Time bupropion [From Wellbutrin] Allergy Severe night Verified 03/03/19 22:10 terrors and anxiety metoclopramide [From Reglan] Allergy Intermediate aggitation Verified 03/03/19 22:10 prochlorperazine Allergy Intermediate agitation Verified 03/03/19 22:10 [From Compazine] FMR OB H&P: ROS - Review of Systems General: reports: weight/appetite/sleep changes. denies: fever/chills Eyes: denies: vision changes, scotomas, floaters ENT: reports: sore throat. denies: nasal congestion, rhinorrhea, sinus pain/ pressure, ear pain Cardiovascular: reports: edema. denies: chest pain, palpitation Respiratory: reports: shortness of breath. denies: cough Gastrointestinal: reports: abdominal pain, nausea, vomiting. denies: diarrhea, constipation Genitourinary (Female): reports: contractions. denies: dysuria, hematuria, vaginal discharge, vaginal pain, vaginal bleeding Musculoskeletal: reports: pain (low back). denies: arthritis/arthralgias Neurologic: reports: headache. denies: seizures Integumentary: denies: itching, rash Psychological: reports: depression, anxiety FMR OB H&P: Vital Signs - Maternal Vital signs: BP: 131/90 HR: 109 O2 sat: 100% - Heart Tones Baseline: 140 Variability: moderate Acceleration: present Deceleration: absent [place] contractions every: none noted FMR OB H&P: Physical Exam - Physical Exam General: NAD, awake, alert and oriented HEENT: normocephalic and atraumatic, MMM, conjunctiva clear, grossly normal vision, grossly normal hearing, oropharynx clear Neck: supple, FROM Heart: RRR, normal S1/S2, no murmurs/rubs/gallops, pulses present, other ( pitting edema in B/L ankles) General: CTAB, no respiratory distress, good air movement, no rales/rhonchi, no wheezing Abdomen: gravid, non-tender, bowel sound present Musculoskeletal: FROM in all four extremities Neurological: cranial nerves II through XII intact, no focal deficit Skin: no rash, good tugor, no jaundice Lymphatic: no unusual bruising or bleeding, no purpura, no petechia Psychiatric: intact recent and remote memory, good judgement and insight, other (anxious appearing) - Pelvic Exam Vulva: normal hair distribution, appropriate joy stage FMR OB H&P: A/P - Problem List (1) Decreased movement Status: Acute Code(s): O36.8190 - DECREASED MOVEMENTS, UNSP TRIMESTER, UNSP (2) Herndon's disease Status: Chronic Code(s): E27.1 - PRIMARY ADRENOCORTICAL INSUFFICIENCY (3) Bipolar 1 disorder Status: Chronic Code(s): F31.9 - BIPOLAR DISORDER, UNSPECIFIED (4) Cholestasis during Status: Chronic Code(s): O26.619 - LIVER AND BILIARY TRACT DISORD IN , UNSP TRIMESTER; K83.1 - OBSTRUCTION OF BILE DUCT Qualifiers: Trimester: third trimester Qualified Code(s): O26.613 - Liver and biliary tract disorders in , third trimester; K83.1 - Obstruction of bile duct (5) Genital herpes affecting in third trimester Status: Chronic Code(s): O98.313 - OTH INFECT W SEXL MODE OF TRANSMISS COMP PREG, THIRD TRI; A60.09 - HERPESVIRAL INFECTION OF OTHER UROGENITAL TRACT (6) High-risk in third trimester Status: Acute Code(s): O09.93 - SUPERVISION OF HIGH RISK , UNSP, THIRD TRIMESTER (7) Hx of pre-eclampsia in prior , currently Status: Chronic Code(s): O09.299 - SUPRVSN OF PREG W POOR REPRODCTV OR OBSTET HISTORY, UNSP TRI (8) Migraine Status: Chronic Code(s): G43.909 - MIGRAINE, UNSP, NOT INTRACTABLE, WITHOUT STATUS MIGRAINOSUS (9) Catalan disease Status: Chronic (10) Pseudoseizures Status: Chronic Code(s): F44.5 - CONVERSION DISORDER WITH SEIZURES OR CONVULSIONS (11) Rh negative status during Status: Chronic Code(s): O26.899 - OTH RELATED CONDITIONS, UNSPECIFIED TRIMESTER; Z67.91 - UNSPECIFIED BLOOD TYPE, RH NEGATIVE Qualifiers: Trimester: third trimester Qualified Code(s): O26.893 - Other specified related conditions, third trimester; Z67.91 - Unspecified blood type, Rh negative Disposition: # Decreased movement - Pt presents with reported absent movement from 2100 yesterday until she arrived to L&D this morning. No contractions noted. FHTs intermittent as patient is breathing heavy and will not remain still but what has been captured has been reassuring w/ baseline in 140s with variability and accels noted. - Will get a BPP to assess for movement. # RUQ pain in - Vitals WNLs with exception of mild tachycardia. Afebrile. Will get a RUQ US since patient does have a h/o cholestasis in & is on urisodiol. Will also check a CMP. - PO tylenol & atarax for pain. # Rt low back pain in - Vitals NL w/ exception of mild tachycardia but patient has had hematuria and renal calcifications noted on US during prior hospital stay. Patient also has a h/o renal stones requiring lithotripsy. Will get a UA, Rt renal US & CMP. - PO tylenol & atarax for pain. # Gestational HTN - Pt with reported multiple elevated blood pressures during . BPs WNLs since arrival today & had a negative pre-eclampsia workup on 03/23. - Will continue serial BP's. # Cholestasis during - Pt with negative bile acids, but symptoms consistent with cholestasis that have improved with ursodiol. - Will continue ursodiol. - BPP as above. # Macrosomia - Aware, Hadlock 97%tile on 03/14/19. - Pt on chronic steroids and has a h/o uncontrolled A2GDM in prior due to her steroid use. She has had non-compliance and poor follow up and has not completed her GTT this . - Will check random glucose with CMP. - Still needs GTT as outpatient. # Genital herpes affecting in third trimester - Continue acyclovir until delivery. # Herndon's disease - Aware, Pt on prednisone 15mg qAM, 10mg qPM per endocrinology. -Will need stress dose steroids during delivery. # Bipolar 1 disorder Pt on lamictal, continue this. # Hx of pre-eclampsia in prior , currently - Risk of developing pre-eclampsia. Had negative workup on 03/23 but has increased LE edema today. Will get a repeat random urine protein:Cr today. 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 # Pseudoseizures - No recent seizures. Continue lamictal. # Rh negative status during - Pt reports getting rhogam at 28 weeks at [facility]. We do not have official records of this. -Ab screen from 03/23/19 negative indicating she likely did not receive rhogam. # Poor patient attendance of care - Pt with poor compliance during in a high risk patient - GBS pending from last admission Discussion: Date/Time: 03/25/19 1200 This H&P was discussed with Dr. Loredo who agrees with the above documentation and plan. Addendum - Attending - Attending Attestation Date/Time: 03/25/19 1602 I personally evaluated the patient and discussed the management with Dr. Bell I agree with the History, Examination, Assessment and Plan documented above with any addition or exceptions noted below. 33 yo female at 35.1 wks by 10.3 wk sono LEXI: 04/28/19 PCP: Yina Patient reports decreased movement for several hours. +FM since arrival. monitoring reactive with frequent acels. No decels. No contractions. Will continue for next hour or 2. BPP 8/8. Noted to have ESME of 6 cm on formal ultrasound but bedside due be me 17.25 cm. Images reviewed from formal sono and large fluid pockets seen. Patient also complaining of RUQ with radiation to lumbar area of back. Different from previous back pain that she noticed from hospitalization yesterday. Denies DAVID, vision changes, swelling. BP normo to mild range. Will repeat labs. Continue to trend BP. Rule out preE. Patient also concerned about shaking events. No s/sx of infection. Have been on large dosing of steroids. Will continue to monitor. SVE as indicated. No CVA tenderness. UA pending. Labs pending for preE evaluation. Monitor electrolytes and replace as needed. BPP 8/8. Patient now noticing movement. Will give tylenol and atirax. Tomy
--- NOTE | 2019-03-25 12:36 | ULT ---
US Biophysical Profile History: Decreased movement Comparison: Ultrasound 2 days prior Findings: Real-time grayscale, color, and spectral analysis of the gravid uterus was performed. The biophysical profile score is 8/8. heart rate documented at 136 bpm. Amniotic fluid index measures 6.2 cm. The position is transverse in the placenta is anterior. Impression: Biophysical profile score of 8/8.
[2019-03-25] MEDS ORDERED: Ondansetron ODT 8 MG TAB SL PRN (12:57)
[2019-03-25] MEDS ORDERED: hydrOXYzine 25 MG TAB PO SCH (13:00)
[2019-03-25] MEDS ORDERED: Acetaminophen 500 MG TAB PO SCH (13:00)
--- NOTE | 2019-03-25 13:10 | PDOC.OBAPN ---
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 Code(s): E27.1 - PRIMARY ADRENOCORTICAL INSUFFICIENCY (3) Bipolar 1 disorder Current Visit: No Status: Chronic Code(s): F31.9 - BIPOLAR DISORDER, UNSPECIFIED (4) Cholestasis during Current Visit: No Status: Chronic Code(s): O26.619 - LIVER AND BILIARY TRACT DISORD IN , UNSP TRIMESTER; K83.1 - OBSTRUCTION OF BILE DUCT Qualifiers: Trimester: third trimester Qualified Code(s): O26.613 - Liver and biliary tract disorders in , third trimester; K83.1 - Obstruction of bile duct (5) Genital herpes affecting in third trimester Current Visit: No Status: Chronic Code(s): O98.313 - OTH INFECT W SEXL MODE OF TRANSMISS COMP PREG, THIRD TRI; A60.09 - HERPESVIRAL INFECTION OF OTHER UROGENITAL TRACT (6) High-risk in third trimester Current Visit: No Status: Acute Code(s): O09.93 - SUPERVISION OF HIGH RISK , UNSP, THIRD TRIMESTER (7) Hx of pre-eclampsia in prior , currently Current Visit: No Status: Chronic Code(s): O09.299 - SUPRVSN OF PREG W POOR REPRODCTV OR OBSTET HISTORY, UNSP TRI (8) Migraine Current Visit: No Status: Chronic Code(s): G43.909 - MIGRAINE, UNSP, NOT INTRACTABLE, WITHOUT STATUS MIGRAINOSUS (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 # Decreased movement - Pt presents with reported absent movement from 2100 yesterday until she arrived to L&D this morning. No contractions noted. FHTs intermittent as patient is breathing heavy and will not remain still but what has been captured has been reassuring w/ baseline in 140s with variability and accels noted. - BPP 10/19 but reported initial ESME was only 6.2. Repeat examination attending physician revealed an ESME of 17.25. # RUQ pain in - Vitals WNLs with exception of mild tachycardia. Afebrile. - RUQ US & CMP showed ?. - PO tylenol & atarax for pain. # Rt low back pain in - Vitals NL w/ exception of mild tachycardia but patient has had hematuria and renal calcifications noted on US during prior hospital stay. Patient also has a h/o renal stones requiring lithotripsy. - UA, Rt renal US & CMP showed ?. - PO tylenol & atarax for pain. # Gestational HTN - Pt with reported multiple elevated blood pressures during . BPs WNLs since arrival today & had a negative pre-eclampsia workup on 03/23. - Will continue serial BP's. # Cholestasis during - Pt with negative bile acids, but symptoms consistent with cholestasis that have improved with ursodiol. - Will continue ursodiol. - BPP as above. # Macrosomia - Aware, Hadlock 97%tile on 03/14/19. - Pt on chronic steroids and has a h/o uncontrolled A2GDM in prior due to her steroid use. She has had non-compliance and poor follow up and has not completed her GTT this . - Will check random glucose with CMP. - Still needs GTT as outpatient. # Genital herpes affecting in third trimester - Continue acyclovir until delivery. # Mccormick's disease - Aware, Pt on prednisone 15mg qAM, 10mg qPM per endocrinology. - Will need stress dose steroids during delivery. # Bipolar 1 disorder - Pt on lamictal, continue this. # Hx of pre-eclampsia in prior , currently - Risk of developing pre-eclampsia. Had negative workup on 03/23 but has increased LE edema today. - CBC, CMP, & protein: Cr ratio Will get a repeat random urine protein:Cr today. 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 # Pseudoseizures - No recent seizures. Continue lamictal. # Rh negative status during - Pt reports getting rhogam at 28 weeks at [facility]. We do not have official records of this. - Ab screen from 03/23/19 negative indicating she likely did not receive rhogam. # Poor patient attendance of care - Pt with poor compliance during in a high risk patient - GBS pending from last admission Dispo: Discussion: Date/Time: 03/25/19 1310 This H&P was discussed with [] and [] who agree with the above documentation and plan.
[2019-03-25 13:15] LABS: Bilirubin Negative (Negative); Blood, Urine Negative (Negative); Clarity Clear (Clear); Glucose, Urine (Dipstick) Normal (Negative); Leukocyte Negative Leu/uL (Negative); Nitrite Negative (Negative); Protein, Urine (Dipstick) Negative (Neg-Trace); RBC/HPF 0-3 HPF (0-3); Squamous Epithelial 0-3 HPF (0-3); Urobilinogen Normal mg/dL (Less than 2); WBC/HPF 0-3 HPF (0-3)
[2019-03-25 13:16] LABS: Bacteria/HPF 1+ HPF (None Seen); Urine Culture Reflex Yes Yes
--- NOTE | 2019-03-25 13:31 | ULT ---
US Gallbladder RUQ History: Right upper quadrant pain Comparison: None. Findings: Real-time grayscale and color evaluation right upper quadrant of the abdomen was performed. Visualized portion of the aorta, IVC, and pancreas are unremarkable. Gallbladder is normal. No perich olecystic fluid. Portal vein is patent with antegrade flow. No dilatation of the common bile duct. Slight increased hepatic echotexture. Impression: Normal right upper quadrant ultrasound.
[2019-03-25 13:35] LABS: Creatinine, Urine Less than 20.00 mg/dL (47-110); Protein, Urine Random Quant Less than 10 mg/dL (1-14)
[2019-03-25 13:47] LABS: ALT (SGPT) 10 U/L (8-55); AST (SGOT) 17 U/L (5-34); Alkaline Phosphatase 125 U/L (40-110); Anion Gap 17 mmol/L (10-20); BUN (Urea Nitrogen) Less than 4 mg/dL (7.0-18.7); Bilirubin, Total 0.2 mg/dL (0.2-1.2); Calc. Creatinine Clearance 189 mL/min (70-130); Carbon Dioxide 12 mmol/L (22-29); Chloride 112 mmol/L (98-107); Estimated GFR-MDRD Greater than 90; Globulin 2.7 g/dL (2.4-3.5); Glucose 119 mg/dL (70-105); Magnesium 1.4 mg/dL (1.6-2.6); Potassium 3.4 mmol/L (3.5-5.1); Protein, Total 5.7 g/dL (6.0-8.3); Sodium 138 mmol/L (136-145)
[2019-03-25] MEDS ORDERED: Potassium Chloride 20 MEQ TAB PO SCH (14:00)
[2019-03-25] MEDS ORDERED: Magnesium Oxide 400 MG TAB PO SCH (14:03)
[2019-03-25 14:13] LABS: #Eosinphils 0.1 thou/uL (0.0-0.7); #Lymphocytes 2.4 thou/uL (1.20-3.40); #Monocytes 1.6 thou/uL (0.11-0.59); #Neutrophils 12.7 thou/uL (1.40-6.50); %Basophils 0.2 % (0.0-1.0); %Eosinophils 0.7 % (0.0-10.0); %Lymphocytes 14.3 % (21.0-51.0); %Monocytes 9.7 % (0.0-10.0); %Neutrophils 75.1 % (42.0-75.0); Hemoglobin 10.6 g/dL (12.0-16.0); Mean Corpuscular HGB CONC 32.8 g/dL (32.0-36.0); Mean Corpuscular Hemoglobin 30.1 pg (27.0-31.0); Mean Corpuscular Volume 91.6 fL (78.0-98.0); Platelet Count 309 thou/uL (130-400); RBC Distribution Width 13.2 % (11.5-14.5); Red Blood Cell (RBC) Count 3.54 mill/uL (4.20-5.40); White Blood Cell (WBC) Count 16.9 thou/uL (4.8-10.8)
--- NOTE | 2019-03-25 14:13 | PDOC.BPN ---
Addendum entered and electronically signed by Smita Bell MD 03/25/19 14:38 : # Rh negative status during - Pt reports getting rhogam at 28 weeks at [facility]. We do not have official records of this. Called [employer] to verify and no documentation of this but patient is insistent that she got it and has her card in her other wallet. Per chart review ROR was sent in clinic on 03/12/2019. Will send flag to clinic manager respiratory care to follow-up on this. - Ab screen from 03/23/19 negative. Original Note: <Smita Bell - Last Filed: 03/25/19 14:21> - Brief Progress Note 33YO @ 35.2 WGA by 10.3 week US (LEXI 04/28/19) presenting to L&D for reported decreased movement as well as RUQ & Right-sided back pain. # Decreased movement - Pt presents with reported absent movement from 2100 yesterday until she arrived to L&D this morning. No contractions noted. FHTs intermittent as patient is breathing heavy and will not remain still but what has been captured has been reassuring w/ baseline in 140s with variability and accels noted. - BPP 8/8 but reported initial ESME was only 6.2. Repeat examination attending physician revealed an ESME of 17.25. # RUQ pain in - Vitals WNLs with exception of mild tachycardia. Afebrile. - RUQ US & CMP were WNLs. - PO tylenol & atarax for pain. # Rt low back pain in - Vitals NL w/ exception of mild tachycardia but patient has had hematuria and renal calcifications noted on US during prior hospital stay. Patient also has a h/o renal stones requiring lithotripsy. - UA, Rt renal US & CMP were all WNLs. - PO tylenol & atarax for pain. # electrolyte derangements: - K low at 3.4 & Mg only 1.4. Will give 40mEq & 300mg PO respectively & send home with 40mEq QD for 1 week of K & Mg citrate x3 doses. # Gestational HTN - Pt with reported multiple elevated blood pressures during . BPs WNLs since arrival today & had a negative pre-eclampsia workup on 03/23. - Had another negative workup today. # Cholestasis during - Pt with negative bile acids, but symptoms consistent with cholestasis that have improved with ursodiol. - Will continue ursodiol. - BPP as above. # Macrosomia - Aware, Hadlock 97%tile on 03/14/19. - Pt on chronic steroids and has a h/o uncontrolled A2GDM in prior due to her steroid use. She has had non-compliance and poor follow up and has not completed her GTT this . - Random glucose with CMP 119. - Still needs GTT as outpatient. # Genital herpes affecting in third trimester - Continue acyclovir until delivery. # Haywood's disease - Aware, Pt on prednisone 15mg qAM, 10mg qPM per endocrinology. - Will need stress dose steroids during delivery. # Bipolar 1 disorder - Pt on lamictal, continue this. # Hx of pre-eclampsia in prior , currently - Risk of developing pre-eclampsia. Had negative workup on 03/23 but has increased LE edema today. - CMP & protein: Cr ratio WNLs. No elevated BPs since arrival. 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 # Pseudoseizures - No recent seizures. Continue lamictal. # Rh negative status during - Pt reports getting rhogam at 28 weeks at [facility]. We do not have official records of this. - Ab screen from 03/23/19 negative indicating she likely did not receive rhogam. # Poor patient attendance of care - Pt with poor compliance during in a high risk patient - GBS pending from last admission Dispo: Will discharge home with instructions to follow-up with Dr. Bran as SANDRA. <Maria Loredo - Last Filed: 03/25/19 16:15> Addendum - Attending - Attending Attestation Date/Time: 03/25/19 2731 I personally evaluated the patient and discussed the management with Dr. Bell I agree with the History, Examination, Assessment and Plan documented above with any addition or exceptions noted below. No evidence of preE. No evidence of nephrolithiasis, kidney infection or lower tract infection. Back pain likely MSK. Pain does not appear to be related to adrenal crisis. No other s/sx of crisis. In fact potassium is still low with normal Na and Ca. Replace potassium and mag. Will send Rx for home replace. Reassuring status with reactive monitoring and BPP 10/19. Keep appt with Dr. Bran next week. Adjust home steroid dosing to 5 mg BID with possible decrease to q day. Continue weekly testing. Will need growth at 36 wks with follow up anatomy. Would monitor glucose q fasting and 2 hours pp daily. Bring log to PCP appt. Continue to monitor BP at home BID Trend labs weekly or more frequent as indicated. Delivery at 37 wks. PCP to arrange. Tomy
[2019-03-25] MEDS ORDERED: Magnesium Citrate 300 ML BOT PO SCH (14:15)
[2019-03-25 14:30] LABS: Band 5 % (5-11); Lymphocytes 13 % (21-51); MDiff Complete? YES; Metamyelocyte 1 % (0-0); Monocytes 10 % (0-10); Myelocyte 1 % (0-0); Neutrophil 70 % (42-75); Nucleated RBC 1 % (0); Platelet Morphology Comment Appears Adequate; Polychromasia SLIGHT = 2-3 cells (100X) (0-2/hpf)
[2019-03-26] MEDS ORDERED: Pantoprazole 40 MG GRANULES PACKET PO SCH (09:00)
[2019-03-26] MEDS ORDERED: FLU VACC QS2019-20(6MOS UP)/PF 60 MCG/0.5 ML SYRINGE IM ONE (12:00)
== END 2019-03-25 15:24 | disposition home health service (06) ==
LOC: L&D/OP 10:59
PROVIDERS: ATTEND Student in an Organized Health Care Education/Training Program
DX: O36.8130 Decreased fetal movements, third trimester, not applicable or unspecified (principal); O47.03 False labor before 37 completed weeks of gestation, third trimester; O13.3 Gestational [pregnancy-induced] hypertension without significant proteinuria, third trimester; O26.613 Liver and biliary tract disorders in pregnancy, third trimester; K83.1 Obstruction of bile duct; O99.283 Endocrine, nutritional and metabolic diseases complicating pregnancy, third trimester; E27.1 Primary adrenocortical insufficiency; O98.313 Other infections with a predominantly sexual mode of transmission complicating pregnancy, third trimester; A60.09 Herpesviral infection of other urogenital tract; O99.413 Diseases of the circulatory system complicating pregnancy, third trimester; A18.01 Tuberculosis of spine; O99.89 Other specified diseases and conditions complicating pregnancy, childbirth and the puerperium; G43.909 Migraine, unspecified, not intractable, without status migrainosus; O99.343 Other mental disorders complicating pregnancy, third trimester; F31.9 Bipolar disorder, unspecified; O09.293 Supervision of pregnancy with other poor reproductive or obstetric history, third trimester; O36.0930 Maternal care for other rhesus isoimmunization, third trimester, not applicable or unspecified; O36.63X0 Maternal care for excessive fetal growth, third trimester, not applicable or unspecified; O09.33 Supervision of pregnancy with insufficient antenatal care, third trimester; Z3A.35 35 weeks gestation of pregnancy; Z79.899 Other long term (current) drug therapy; Z88.8 Allergy status to other drugs, medicaments and biological substances
CPT/HCPCS: 36415; 76705; 76819; 80053; 81001; 82570; 83735; 84156; 85025; 87086; 99285

== ENCOUNTER 2019-03-31 19:56 | Day surgery (SDC) | payer OTHER ==
[2019-03-31 20:36] VITALS: BP 134/87; TEMP 98; BMI 34.3
[2019-03-31] MEDS ORDERED: hydrALAZINE 20 MG/ML VIAL SLOW IVP PRN (21:25)
--- NOTE | 2019-03-31 22:03 | PDOC.FPROB ---
FMR OB H&P: HPI - History of Present Illness Chief Complaint: Elevated BP Indentification: 33 y/o @ 36.0 WGA by 10.3 week US (LEXI 04/28/19) History of Present Illness: Patient reports that she woke up form a nap today feeling poorly. She Started checking her BP and they were in the 150s/100s with the highest 157/112. She reports spots in her vision and a headache all over her head. The patient has a h/o migraines so she rested some more and the headache has improved. She reports pain over her whole abdomen but worse in the pelvic region. She reports itching, worse on her palms and soles only minimally relieved by ursodiol. She denies SOB. Primary Care Physician: Dr. Bran/Dr. Loredo - [facility] FMR OB H&P: Current - Care : 8 Para: [id number] Gestational age: 36.0 Course/Complications: cholestasis in , laura's disease, pseudoseizures, bipolar 1 disorder - OB Labs Blood type: O RH: negative HIV: negative RPR: negative HepBsAg: negative Rubella: immune Urine drug screen: positive (marijuana in the past) GBS: negative FMR OB H&P: History - Past Medical History PMH: - Past Medical History PMH: GERD [place]'s / Adrenal insufficiency Marijuana use h/o preeclampsia in 3rd , h/o GDM in prior Anxiety and depression Bipolar 1 disorder Herpes, genital Seizure disorder Migraines Insomnia PTSD - OB History OB History: 5 prior vaginal deliveries Pre-eclampsia with 3rd h/o GDM in prior States she has had elevated blood pressures during this - SALT MANAGER History SALT MANAGER History: H/o cervical dysplasia Genital Herpes - Surgical History Sx History: Kidney stone removal ex-lap - Social History Social History: Denies illicit drug use, however has tested positive for marijuana in the past. - Family History Family History: Mother Hepatitis C, CVA, recurrent losses, BPD Father - history unknown but possibly skin cancer Grandmother paternal- Crohn's disease, Thalassemia. Sister: Crohn's disease, BPD Son: Asthma FMR OB H&P: Medications - Current Home Medications: Medication Instructions Recorded Confirmed Type Rizatriptan Benzoate [Rizatriptan] 5 mg PO Q2HR PRN 01/27/18 03/23/19 History lamoTRIgine [LaMICtal] 200 mg PO DAILY 04/24/18 03/23/19 History Famotidine 1 tab PO BID 03/23/19 03/23/19 History Acyclovir [Zovirax] 400 mg PO BID tab 03/24/19 Rx Clotrimazole 2% 3 Day Vag Cr 1 gm VAG NOW #2 tube 03/24/19 Rx [Clotrimazole 2% 3 Day Vaginal Cream] Hydrocortisone [Cortef] 5 mg PO 1400 tab 03/24/19 Rx Hydrocortisone [Cortef] 5 mg PO 2000 tab 03/24/19 Rx Hydrocortisone [Cortef] 15 mg PO 0800 tab 03/24/19 Rx Ursodiol [Actigal] 300 mg PO TID-WM cap 03/24/19 Rx Magnesium Citrate [Citrate of 300 ml PO NOW #3 bot 03/25/19 Rx Magnesia] Potassium Chloride [K-Dur] 40 meq PO NOW #14 tab 03/25/19 Rx Allergies/Adverse Reactions: Allergies Allergy/AdvReac Type Severity Reaction Status Date / Time bupropion [From Wellbutrin] Allergy Severe night Verified 03/03/19 22:10 terrors and anxiety metoclopramide [From Reglan] Allergy Intermediate aggitation Verified 03/03/19 22:10 prochlorperazine Allergy Intermediate agitation Verified 03/03/19 22:10 [From Compazine] FMR OB H&P: Vital Signs - Maternal Vital signs: Vital Signs - First Documented Temp Pulse Resp BP Pulse Ox 98.0 F 122 H 14 134/87 100 03/31/19 20:31 03/31/19 20:31 03/31/19 20:31 03/31/19 20:31 03/31/19 20:31 - Heart Tones Baseline: 140 Variability: moderate Acceleration: present Deceleration: absent Category: category 1 [place] contractions every: none FMR OB H&P: Physical Exam - Physical Exam General: NAD, awake, alert and oriented HEENT: MMM, conjunctiva clear, grossly normal vision, normal nasal mucosa Neck: supple, no LAD Heart: RRR, normal S1/S2, no murmurs/rubs/gallops, pulses present, no edema General: CTAB, no respiratory distress, good air movement, no wheezing Abdomen: soft, gravid, other (tender over pubic symphysis) Musculoskeletal: pulses present Neurological: DTR +2, no clonus, no focal deficit Skin: good tugor, capillary refill <2 seconds Lymphatic: no unusual bruising or bleeding, no purpura Psychiatric: intact recent and remote memory, good judgement and insight FMR OB H&P: A/P - Problem List (1) Gestational HTN Status: Acute Code(s): O13.9 - GESTATIONAL HTN W/O SIGNIFICANT PROTEINURIA, UNSP TRIMESTER Qualifiers: Trimester: third trimester Qualified Code(s): O13.3 - Gestational [ -induced] hypertension without significant proteinuria, third trimester (2) High-risk in third trimester Status: Acute Code(s): O09.93 - SUPERVISION OF HIGH RISK , UNSP, THIRD TRIMESTER (3) Macrosomia Status: Acute Code(s): P08.0 - EXCEPTIONALLY LARGE BABY (4) Poor patient attendance of care Status: Acute Code(s): O09.30 - SUPRVSN OF PREG W INSUFFICIENT ANTENAT CARE, UNSP TRIMESTER (5) [place]'s disease Status: Chronic Code(s): E27.1 - PRIMARY ADRENOCORTICAL INSUFFICIENCY (6) Bipolar 1 disorder Status: Chronic Code(s): F31.9 - BIPOLAR DISORDER, UNSPECIFIED (7) Cholestasis during Status: Chronic Code(s): O26.619 - LIVER AND BILIARY TRACT DISORD IN , UNSP TRIMESTER; K83.1 - OBSTRUCTION OF BILE DUCT Qualifiers: Trimester: third trimester Qualified Code(s): O26.613 - Liver and biliary tract disorders in , third trimester; K83.1 - Obstruction of bile duct (8) Genital herpes affecting in third trimester Status: Chronic Code(s): O98.313 - OTH INFECT W SEXL MODE OF TRANSMISS COMP PREG, THIRD TRI; A60.09 - HERPESVIRAL INFECTION OF OTHER UROGENITAL TRACT (9) [place] disease Status: Chronic (10) Pseudoseizures Status: Chronic Code(s): F44.5 - CONVERSION DISORDER WITH SEIZURES OR CONVULSIONS (11) Rh negative status during Status: Chronic Code(s): O26.899 - OTH RELATED CONDITIONS, UNSPECIFIED TRIMESTER; Z67.91 - UNSPECIFIED BLOOD TYPE, RH NEGATIVE Qualifiers: Trimester: third trimester Qualified Code(s): O26.893 - Other specified related conditions, third trimester; Z67.91 - Unspecified blood type, Rh negative Disposition: (1) High-risk in third trimester Pt has not been attending BPP appts or following with MFM -BPP -IOL is already scheduled for 37.2 WGA (2) Gestational HTN Initial BP close to 160/110 and pt reports DBP 112 at home. Headache appears similar to migraine and has resolved. Vision changes not suggestive of pre- eclampsia -Will check CBC, CMP, Urine prot:cr ratio -BPP as above -Serial BP's (3) Cholestasis during Pt with negative bile acids, but symptoms consistent with cholestasis that have improved with ursodiol -Will continue ursodiol -BPP as above (4) Macrosomia [place] 97%tile on 03/14/19 Pt on chronic steroids and has a h/o uncontrolled A2GDM in prior due to her steroid use. She has had non-compliance and poor follow up and has not completed her GTT this -Needs to be checking fasting and 2h postprandial glucose at home -Repeat growth US (5) Genital herpes affecting in third trimester Pt had recent outbreak that has resolved and is currently on ppx acyclovir -Continue acyclovir until delivery (6) [place]'s disease Pt on hydrocortisone -Will need stress dose steroids during delivery (7) Bipolar 1 disorder Pt on lamictal, continue this Pt recently stopped seroquel (8) Hx of pre-eclampsia in prior , currently Risk of developing pre-eclampsia -Checking pre-e labs as above (9) [place] disease: Stable, remains tachycardic (10) Pseudoseizures No recent seizures -Monitor (11) Rh negative status during Pt reports getting rhogam at 28 weeks at [facility]. We do not have official records of this, called over to [facility] and they have no records of giving her rhogam. Antibody screen negative. (12) Poor patient attendance of care Current Visit: Yes Status: Acute Code(s): O09.30 - SUPRVSN OF PREG W INSUFFICIENT ANTENAT CARE, UNSP TRIMESTER Assessment and Plan: Pt with poor compliance during in a high risk patient -Check BPP Discussion: Date/Time: 03/31/192201 This H&P was discussed with Dr. Liu who agrees with the above documentation and plan. Signature: Whitley Bran MD, PGY-3 Addendum - Attending - Attending Attestation Date/Time: 04/01/19 1212 I personally evaluated the patient and discussed the management with Dr. Bran on 03/31/2018 I agree with the History, Examination, Assessment and Plan documented above with any addition or exceptions noted below - 33 yo @36 weeks presented with c/o elevated BP at home. Denies any ctx, LOF. VB/ (+) FM. (+) DAVID but has h/o migraines and DAVID is improving. Afebrile Serial BP 150/97 and 134/87 Category 1 FHTs [place] irritability. A/P: 1) IUP@36 weeks with gHTN, cholestasis of and poor compliance with follow-up- Will check Pre-E labs, BPP and growth USG. If labs and testing negative, will d/c home and follow-up in the office this week. Induction scheduled for 04/09.
[2019-03-31 22:18] LABS: ALT (SGPT) 13 U/L (8-55); AST (SGOT) 25 U/L (5-34); Albumin 3.2 g/dL (3.5-5.0); Alkaline Phosphatase 156 U/L (40-110); Anion Gap 16 mmol/L (10-20); BUN (Urea Nitrogen) 8 mg/dL (7.0-18.7); Bilirubin, Total 0.3 mg/dL (0.2-1.2); Calc. Creatinine Clearance 178 mL/min (70-130); Calcium 8.7 mg/dL (7.8-10.44); Carbon Dioxide 19 mmol/L (22-29); Chloride 104 mmol/L (98-107); Estimated GFR-MDRD Greater than 90; Glucose 107 mg/dL (70-105); Magnesium 1.4 mg/dL (1.6-2.6); Potassium 4.6 mmol/L (3.5-5.1); Protein, Total 6.2 g/dL (6.0-8.3); Sodium 134 mmol/L (136-145); Uric Acid 5.8 mg/dL (2.6-6.0)
[2019-03-31 22:32] LABS: #Eosinphils 0.1 thou/uL (0.0-0.7); #Lymphocytes 2.8 thou/uL (1.20-3.40); #Monocytes 1.4 thou/uL (0.11-0.59); #Neutrophils 10.2 thou/uL (1.40-6.50); %Basophils 0.2 % (0.0-1.0); %Eosinophils 0.6 % (0.0-10.0); %Lymphocytes 19.2 % (21.0-51.0); %Monocytes 9.8 % (0.0-10.0); %Neutrophils 70.2 % (42.0-75.0); Hemoglobin 11.6 g/dL (12.0-16.0); Mean Corpuscular HGB CONC 33.7 g/dL (32.0-36.0); Mean Corpuscular Hemoglobin 29.4 pg (27.0-31.0); Mean Corpuscular Volume 87.4 fL (78.0-98.0); Mean Platelet Volume 7.8 fL (7.4-10.4); Platelet Count 399 thou/uL (130-400); Platelet Morphology Comment Appears Adequate; RBC Distribution Width 13.7 % (11.5-14.5); RBC Morphology Normal; Red Blood Cell (RBC) Count 3.95 mill/uL (4.20-5.40); White Blood Cell (WBC) Count 14.5 thou/uL (4.8-10.8)
[2019-03-31 23:07] LABS: Creatinine, Urine 37.65 mg/dL (47-110); Protein, Urine Random Quant Less than 10 mg/dL (1-14)
--- NOTE | 2019-04-01 00:51 | PDOC.BPN ---
- Brief Progress Note BPP 10/19 ESME WNL Cat 1 strip mag mildly low, gave mag oxide 400mg Pt has f/u at [facility] on Tue Gave return precautions and recommended checking Glucose and BP's daily and bring log to that appt. d/c home
[2019-04-01] MEDS ORDERED: Magnesium Oxide 400 MG TAB PO SCH (01:00)
--- NOTE | 2019-04-01 08:04 | ULT ---
PRELIMINARY REPORT/[facility]/AFTER HOURS PROCEDURE COMPLETE OBSTETRICAL ULTRASOUND >14 WEEKS: CLINICAL HISTORY: ?PIH. Possible macrosomia. See notes on last image. Thanks. TECHNIQUE: Transabdominal imaging of the maternal pelvis and a > 14 week gestation with image documentation. COMPARISON: None provided. FINDINGS: FETUS: There is a single living intrauterine gestation, estimated gestational age 39 weeks 0 days. POSITION: position is vertex. HEART RATE: The heart rate is 141 beats per minute. BIOMETRICS: Based on composite biometry, the estimated gestational age by ultrasound is 39 week s 0 days corresponding to a due date of 04/07/2019. The estimated weight is 3824 g. The BPD is 9.7 cm corresponding to 39 weeks 5 days. The HC is 34.7 cm corresponding to 40 weeks 2 days. The AC is 37.0 cm corresponding to 41 weeks 0 days. The FL is 6.8 cm corresponding to 35 weeks 0 days. ANATOMIC SURVEY: The visualized anatomy is unremarkable. PLACENTA: The placenta is located RIGHT. No sonographic evidence for previa or abruption. AMNIOTIC FLUID: Within normal limits. The ESME is 13.9 cm. CERVIX: Closed. Unremarkable as visualized. IMPRESSION: Single viable intrauterine , somewhat large for gestational age. ELECTRONICALLY SIGNED BY: Allan Jim MD Apr 01, 2019 12:53:22 AM SOLE TACKER This report is intended for review by the ordering physician only, in accordance of law. If you recei ve this report in error, please call [facility] at [phone]. FINAL REPORT OB ULTRASOUND: PROVIDED CLINICAL HISTORY: Macrosomia. COMPARISON: 03/14/2019 FINDINGS/IMPRESSION: I agree with the preliminary interpretation given by [facility]. CODE QA Transcribed Date/Time: 04/01/2019 9:29 AM
--- NOTE | 2019-04-01 08:06 | ULT ---
PRELIMINARY REPORT/[facility]/AFTER HOURS PROCEDURE ULTRASOUND BIOPHYSICAL PROFILE WITHOUT NON-STRESS TESTING: CLINICAL HISTORY: ?PIH. Possible macrosomia. See notes on last image. Thanks. TECHNIQUE: Real-time ultrasound of the maternal pelvis for biophysical profile evaluation with image docum entation. COMPARISON: OB ultrasound from 03/31/2019 at 11:49 p.m. MEDICAL CARE ADMINISTRATOR. FINDINGS: A single live intrauterine gestation of 39 weeks 0 days is noted with a heartbeat of 141 bpm. BREATHING MOVEMENTS: Score 2/2. BODY MOVEMENTS: Score 2/2. TONE: Score 2/2. QUALITATIVE AMNIOTIC FLUID VOLUME: Within normal limits. 2/2. IMPRESSION: Normal biophysical profile, 10/19. ELECTRONICALLY SIGNED BY: Allan Jim MD Apr 01, 2019 12:48:47 AM MEDICAL CARE ADMINISTRATOR This report is intended for review by the ordering physician only, in accordance of law. If you recei ve this report in error, please call [facility] at [phone]. FINAL REPORT: Biophysical profile. PROVIDED CLINICAL HISTORY: Hypertension. COMPARISON: 03/25/2019 FINDINGS/IMPRESSION: I agree with the preliminary interpretation given by [facility]. CODE QA Transcribed Date/Time: 04/01/2019 9:25 AM
== END 2019-04-01 01:10 | disposition home or self-care (01) ==
LOC: L&D/OP 19:56
PROVIDERS: ATTEND Student in an Organized Health Care Education/Training Program
DX: O13.3 Gestational [pregnancy-induced] hypertension without significant proteinuria, third trimester (principal); O26.813 Pregnancy related exhaustion and fatigue, third trimester; K83.1 Obstruction of bile duct; O36.63X0 Maternal care for excessive fetal growth, third trimester, not applicable or unspecified; O99.283 Endocrine, nutritional and metabolic diseases complicating pregnancy, third trimester; E27.1 Primary adrenocortical insufficiency; O98.313 Other infections with a predominantly sexual mode of transmission complicating pregnancy, third trimester; A60.09 Herpesviral infection of other urogenital tract; O99.343 Other mental disorders complicating pregnancy, third trimester; F31.9 Bipolar disorder, unspecified; O09.30 Supervision of pregnancy with insufficient antenatal care, unspecified trimester; Z3A.36 36 weeks gestation of pregnancy; Z79.899 Other long term (current) drug therapy; Z88.8 Allergy status to other drugs, medicaments and biological substances
CPT/HCPCS: 36415; 76816; 76819; 80053; 82570; 83735; 84156; 84550; 85025; 99284

== ENCOUNTER 2019-04-05 21:09 | Day surgery (SDC) | payer OTHER ==
[2019-04-05] MEDS ORDERED: hydrALAZINE 20 MG/ML VIAL SLOW IVP PRN (21:48)
--- NOTE | 2019-04-05 21:50 | PDOC.FPROB ---
FMR OB H&P: HPI - History of Present Illness Chief Complaint: contractions Indentification: 33 yo at 36.5 wga by 10.3 wk sono History of Present Illness: Pt is here for contractions which started around 17:30 tonight. Says they started as 2-3 minutes apart and now feel constant. She describes ctx as back pain, vaginal pressure and pain. +FM, no decrease noted. Denies VB, vaginal discharge, LOF. Primary Care Physician: PNC: Facundo/Yina FMR OB H&P: Current - Care : 8 Para: [id number] Gestational age: 36.5 Due date: 04/28/2019 Dating Criteria: 10 wk sono Course/Complications: see PMHx - OB Labs Blood type: O RH: negative Antibody Screen: negative HIV: negative RPR: negative HepBsAg: negative Rubella: immune Gonorrhea: negative (marijuana in past) GBS: negative FMR OB H&P: History - Past Medical History PMH: GERD [place]'s / Adrenal insufficiency Marijuana use h/o preeclampsia in 3rd , h/o GDM in prior Anxiety and depression Bipolar 1 disorder Herpes, genital Seizure disorder Migraines Insomnia PTSD - OB History OB History: 5 prior vaginal deliveries Pre-eclampsia with 3rd h/o GDM in prior States she has had elevated blood pressures during this - 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 Sister: Crohn's disease, BPD Son: Asthma FMR OB H&P: Medications - Current Home Medications: Medication Instructions Recorded Confirmed Type Rizatriptan Benzoate [Rizatriptan] 5 mg PO Q2HR PRN 01/27/18 03/23/19 History lamoTRIgine [LaMICtal] 200 mg PO DAILY 04/24/18 03/23/19 History Famotidine 1 tab PO BID 03/23/19 03/23/19 History Acyclovir [Zovirax] 400 mg PO BID tab 03/24/19 Rx Clotrimazole 2% 3 Day Vag Cr 1 gm VAG NOW #2 tube 03/24/19 Rx [Clotrimazole 2% 3 Day Vaginal Cream] Hydrocortisone [Cortef] 5 mg PO 1400 tab 03/24/19 Rx Hydrocortisone [Cortef] 5 mg PO 2000 tab 03/24/19 Rx Hydrocortisone [Cortef] 15 mg PO 0800 tab 03/24/19 Rx Ursodiol [Actigal] 300 mg PO TID-WM cap 03/24/19 Rx Magnesium Citrate [Citrate of 300 ml PO NOW #3 bot 03/25/19 Rx Magnesia] Potassium Chloride [K-Dur] 40 meq PO NOW #14 tab 03/25/19 Rx Allergies/Adverse Reactions: Allergies Allergy/AdvReac Type Severity Reaction Status Date / Time bupropion [From Wellbutrin] Allergy Severe night Verified 03/03/19 22:10 terrors and anxiety metoclopramide [From Reglan] Allergy Intermediate aggitation Verified 03/03/19 22:10 prochlorperazine Allergy Intermediate agitation Verified 03/03/19 22:10 [From Compazine] FMR OB H&P: ROS - Review of Systems General: denies: fever/chills, weight/appetite/sleep changes Eyes: denies: eye pain, vision changes, scotomas ENT: denies: nasal congestion, rhinorrhea, sore throat Cardiovascular: denies: chest pain, palpitation, edema Respiratory: denies: cough, congestion, shortness of breath Gastrointestinal: denies: nausea, vomiting, diarrhea Genitourinary (Female): reports: contractions (described as "back pain/back labor"). denies: dysuria, vaginal discharge, vaginal pain, vaginal bleeding Neurologic: denies: numbness, syncope Integumentary: denies: itching Hematologic/Lymphatic: denies: prolonged or excessive bleeding FMR OB H&P: Vital Signs - Maternal Vital signs: BP wnl HR wnl - Heart Tones Baseline: 160 Variability: moderate Acceleration: present Deceleration: absent Category: category 1 [place] contractions every: 2-5 min FMR OB H&P: Physical Exam - Physical Exam General: NAD, awake, alert and oriented HEENT: normocephalic and atraumatic Heart: RRR, normal S1/S2, no murmurs/rubs/gallops General: CTAB, no respiratory distress Abdomen: soft, gravid, non-tender Neurological: no focal deficit Skin: no rash Lymphatic: no unusual bruising or bleeding Psychiatric: intact recent and remote memory, normal mood and affect - Pelvic Exam Vulva: normal hair distribution SVE: 2/50/-2 Membranes: intact Estimated Weight: 7 lbs FMR OB H&P: A/P - Problem List (1) contractions Status: Acute Code(s): O47.9 - FALSE LABOR, UNSPECIFIED Disposition: observe on L&D Discussion: Date/Time: 04/05/192147 contractions - monitor on L&D for 2 hours, then recheck cervix to see if pt has made change - encourage PO hydration and some snacks - continous EFM/toco Recent history of Hypokalemia/Hypomagnesemia - checked CMP, magnesium, phosphorus - will replete if needed. This H&P was discussed with Dr. Shin, who agrees with the above documentation and plan. Signature: Mary Anne oRberts MD PGY1 Addendum - Attending - Attending Attestation Date/Time: 04/05/19 5596 (time patient seen and evaluated. I personally evaluated the patient and discussed the management with Dr. Roberts I agree with the History, Examination, Assessment and Plan documented above with any addition or exceptions noted below. Prelabor contractions. No change in SVE after 2 hrs. Given Stadol 2 mg IM and d/ c home with rtc precautions. Mg 1.3. Given 800 mg PO mg and will need to f/u at time of induction. other electrolytes WNL.
[2019-04-05 21:58] VITALS: BMI 34.3
[2019-04-05 23:37] LABS: ALT (SGPT) 11 U/L (8-55); AST (SGOT) 15 U/L (5-34); Albumin 3.4 g/dL (3.5-5.0); Alkaline Phosphatase 189 U/L (40-110); Anion Gap 15 mmol/L (10-20); BUN (Urea Nitrogen) 6 mg/dL (7.0-18.7); Bilirubin, Total 0.3 mg/dL (0.2-1.2); Calc. Creatinine Clearance 171 mL/min (70-130); Calcium 9.4 mg/dL (7.8-10.44); Carbon Dioxide 19 mmol/L (22-29); Chloride 105 mmol/L (98-107); Estimated GFR-MDRD 88; Globulin 2.6 g/dL (2.4-3.5); Glucose 102 mg/dL (70-105); Magnesium 1.3 mg/dL (1.6-2.6); Phosphorus 4.7 mg/dL (2.3-4.7); Potassium 4.4 mmol/L (3.5-5.1); Sodium 135 mmol/L (136-145)
[2019-04-05] MEDS ORDERED: Magnesium Oxide 400 MG TAB PO SCH (23:59)
--- NOTE | 2019-04-06 00:01 | PDOC.BPN ---
- Brief Progress Note rechecked pt after 2 hours. Cat 1 strip, kevyn every 2-5 minutes. She is 3/50/-2, previously was 2-3 cm/50/-2. She is in latent phase of labor. We will discharge home. Strict and clear return precautions for labor, increased contraction frequency, vaginal bleeding, loss of fluid, gush of fluid are all reasons to return to ER. Otherwise, we will proceed w/ induction on Tuesday as scheduled. Dr. Shin agrees with this plan.
[2019-04-06] MEDS ORDERED: Butorphanol Tartrate 1 MG/ML VIAL IM SCH (00:15)
[2019-04-06] MEDS ORDERED: FLU VACC QS2019-20(6MOS UP)/PF 60 MCG/0.5 ML SYRINGE IM ONE (21:00)
== END 2019-04-06 00:20 | disposition home or self-care (01) ==
LOC: L&D/OP 21:09
PROVIDERS: ATTEND Student in an Organized Health Care Education/Training Program
DX: O47.03 False labor before 37 completed weeks of gestation, third trimester (principal); O99.283 Endocrine, nutritional and metabolic diseases complicating pregnancy, third trimester; E87.6 Hypokalemia; E83.42 Hypomagnesemia; O98.313 Other infections with a predominantly sexual mode of transmission complicating pregnancy, third trimester; A60.00 Herpesviral infection of urogenital system, unspecified; Z3A.36 36 weeks gestation of pregnancy; Z79.2 Long term (current) use of antibiotics; Z79.899 Other long term (current) drug therapy; Z88.8 Allergy status to other drugs, medicaments and biological substances
CPT/HCPCS: 36415; 80053; 83735; 84100; 96372; 99283; J0360; J0595

== ENCOUNTER 2019-04-07 23:57 | Inpatient (IN) | payer OTHER ==
[~2019-04-07 23:57] MED LIST: Bupivacaine 0.25% HCL 30 ML VIAL ONE; ePHEDrine/0.9% NaCl/PF SYRINGE 50 mg/10 ml ONE
[2019-04-08] MEDS: Lactated Ringer's 1,000 ML IV SCH ×3 (00:28→13:03)
[2019-04-08 00:30] VITALS: BMI 34.3
[2019-04-08] MEDS ORDERED: hydrALAZINE 20 MG/ML VIAL ONE (00:38)
[2019-04-08] MEDS ORDERED: Misoprostol 200 MCG TAB PR PRN (01:07)
[2019-04-08] MEDS ORDERED: Ibuprofen 800 MG TAB PO PRN (01:07)
[2019-04-08] MEDS ORDERED: Calcium Gluc 4.6 MEQ/10 ML (100 MG/ML) SLOW IVP PRN (01:07)
[2019-04-08] MEDS ORDERED: Acetaminophen 500 MG TAB PO PRN (01:07)
[2019-04-08] MEDS ORDERED: Lidocaine 1% (PF) 30 ML VIAL SC PRN (01:07)
[2019-04-08] MEDS ORDERED: Butorphanol Tartrate 1 MG/ML VIAL SLOW IVP PRN (01:07)
[2019-04-08] MEDS ORDERED: NS / Oxytocin 40 units/1000ml 1,000 ML IV PRN (01:07)
[2019-04-08] MEDS ORDERED: hydrALAZINE 20 MG/ML VIAL SLOW IVP PRN ×3 (01:07→21:05)
[2019-04-08] MEDS ORDERED: Fentanyl 4 mcg/Bup 0.1% Cadd 100 ML ONE ×2 (01:11→09:14)
[2019-04-08] MEDS ORDERED: Labetalol HCl 100 MG/20 ML VIAL SLOW IVP PRN (01:14)
[2019-04-08] MEDS ORDERED: Magnesium Sulfate 20 GM/WATER 500 ML BAG IVPB SCH (01:15)
--- NOTE | 2019-04-08 01:16 | PDOC.LDHP ---
Labor and Delivery H&P Chief complaint: contractions HPI: Patient is a 33F @ 37wga by 10.3wk sono presenting today with contractions. Patient reports that contractions began around 930-10pm last night, about 2- 3min apart.. She denies loss of fluid, vaginal bleeding. She endorses movement. She reports of a headache for the last 3 days. Also reports of "floaters" in her vision for the last few weeks. Patient wants an epidural during this . PCP: Yina Current gestational age (weeks): 37 Due date: 04/28/19 Dating criteria: first trimester ultrasound Grav: 8 Para: 5 OB History Details: 5 prior pregnancies, all full-term vaginal deliveries Hx of pre-eclampsia during 3rd and GDM during last Current complications: gestational hypertension, preeclampsia with severe features Past Medical History: GERD [place]'s/Adrenal Insufficiency Marijuana use h/o pre-eclampsia in 3rd , GDM in last Anxiety and Depression Bipolar 1 Depression Genital Herpes Migraines Insomnia PTSD Current medications: pre- vitamins, other (lamictal, famotidine, acyclovir , clotrimazole, hydrocortisone, ursodiol, potassium chloride) Previous surgical history: other (kidney stone removal, ex-lap for possible ectopic , L knee meniscus repair) Allergies/Adverse Reactions: Allergies Allergy/AdvReac Type Severity Reaction Status Date / Time bupropion [From Wellbutrin] Allergy Severe night Verified 04/08/19 00:31 terrors and anxiety metoclopramide [From Reglan] Allergy Intermediate aggitation Verified 04/08/19 00:31 prochlorperazine Allergy Intermediate agitation Verified 04/08/19 00:31 [From Compazine] Social history: drug use - Physical Exam Abnormal vital signs: BP 147/115, 186/119 General: NAD, breathing through contractions Heart: RRR Lungs: CTAB Abdomen: gravid Extremeties: no edema FHT: category 1, variability present [place] contractions every: 1-2min - Vaginal Exam cm dilated: 4 Effacement: 75% Station: -3 - OB Labs Blood type: O RH: negative Antibody Screen: negative HIV: negative RPR: negative HEPSAg: negative 1 hour GCT: negative GBS: negative Urine drug screen: negative Rubella: immune - Assessment L&D Assessment: term patient in labor - Plan Plan: admit to L&D, magnesium for seizure prophylaxis, anesthesia consult for pain management -: Patient is a 33F @ 37wga by 10.3wk carson admitted to L&D for pre-e with severe features and labor #sIUP in latent labor -reactive strip -ctx q 1-2min -/-3 @ 0050 -epidural order -spec exam does not show any active genital herpes lesions; some white discharge -VP3 pending -will continue to strip and continue cervical checks #Pre-eclampsia with severe features -BP 147/115, 186/119 -patient reports that she has had elevated BP throughout this -reports of DAVID the last 3 days, "floaters" in vision for last several weeks -CBC, CMP, urine protein/creatinine -will start magnesium at this time -q4h mag checks #Hx of genital herpes -has reportedly been taking acyclovir -speculum exam does not show any active lesions at this time -will proceed with vaginal delivery #Psychiatric Hx (Anxiety, Depression, Bipolar 1 Disorder) -will continue lamictal -will monitor closely for ppd #Hx of marijuana use -UDS pending #Addisons Disease -continue home medications #GERD -continue home medications DVT ppx: none Diet: NPO Dispo: admit to L&D for latent labor; workup for pre-e with severe features; will continue cervical checks, mag checks, and continue to monitor FHT Code: Full PCP: Yina at [facility] The case has been discussed by and the patient has been evaluated by Dr. Chakraborty and Dr. Blas who are in agreement with the plan of care. Addendum - Attending - Attending Attestation Date/Time: 04/08/19918 I personally evaluated the patient and discussed the management with Dr. Gomez. I agree with the History, Examination, Assessment and Plan documented above with any addition or exceptions noted below.
[2019-04-08] MEDS ORDERED: hydrALAZINE 20 MG/ML VIAL SLOW IVP SCH (01:30)
[2019-04-08] MEDS: Magnesium Sulfate 20 GM in Dextrose 5% in Water 460 ML IVPB SCH ×3 (01:30→20:18)
[2019-04-08 01:51] LABS: #Basophils 0.1 thou/uL (0.0-0.2); #Eosinphils 0.1 thou/uL (0.0-0.7); #Lymphocytes 2.9 thou/uL (1.20-3.40); #Monocytes 1.2 thou/uL (0.11-0.59); #Neutrophils 9.6 thou/uL (1.40-6.50); %Basophils 0.7 % (0.0-1.0); %Eosinophils 0.5 % (0.0-10.0); %Lymphocytes 20.9 % (21.0-51.0); %Monocytes 8.6 % (0.0-10.0); %Neutrophils 69.4 % (42.0-75.0); Hemoglobin 12.2 g/dL (12.0-16.0); Mean Corpuscular HGB CONC 33.6 g/dL (32.0-36.0); Mean Corpuscular Hemoglobin 29.2 pg (27.0-31.0); Mean Platelet Volume 8.2 fL (7.4-10.4); Platelet Count 342 thou/uL (130-400); Red Blood Cell (RBC) Count 4.16 mill/uL (4.20-5.40); White Blood Cell (WBC) Count 13.9 thou/uL (4.8-10.8)
[2019-04-08] MEDS ORDERED: Fentanyl 100 MCG/2 ML VIAL ONE ×2 (02:17→12:37)
[2019-04-08 02:21] LABS: ALT (SGPT) 8 U/L (8-55); AST (SGOT) 19 U/L (5-34); Albumin 3.5 g/dL (3.5-5.0); Alkaline Phosphatase 200 U/L (40-110); Anion Gap 18 mmol/L (10-20); BUN (Urea Nitrogen) 7 mg/dL (7.0-18.7); Bilirubin, Total 0.4 mg/dL (0.2-1.2); Calc. Creatinine Clearance 176 mL/min (70-130); Calcium 10.5 mg/dL (7.8-10.44); Carbon Dioxide 20 mmol/L (22-29); Chloride 105 mmol/L (98-107); Estimated GFR-MDRD Greater than 90; Globulin 2.5 g/dL (2.4-3.5); Glucose 93 mg/dL (70-105); Potassium 4.1 mmol/L (3.5-5.1); Sodium 139 mmol/L (136-145)
[2019-04-08 02:30] LABS: HBSAg Index 0.14 S/CO (0-0.99); Hep B Surf Ag Non-Reactive S/CO (NonReactive)
[2019-04-08] MEDS ORDERED: Famotidine 20 MG TAB PO SCH ×2 (02:30→21:00)
[2019-04-08] MEDS ORDERED: Calcium Carbonate 500 MG ChewTAB PO PRN (02:36)
[2019-04-08] MEDS: Ondansetron PF 4 MG/2 ML Vial IVP PRN ×2 (02:49→12:58)
[2019-04-08 03:27] LABS: Amphetamine Not Detected (NotDetected); Barbiturates Screen Not Detected (NotDetected); Benzodiazepine Screen Not Detected (NotDetected); Cocaine Metabolite Screen Not Detected (NotDetected); Medtox Reader # READER 4; Methadone Not Detected (NotDetected); Methamphetamine Not Detected (NotDetected); Opiate Screen Not Detected (NotDetected); Oxycodone Screen Not Detected (NotDetected); Phencyclidine (PCP) Not Detected (NotDetected); THC/Cannabinoid Screen Not Detected (NotDetected); Tricyclic Screen Not Detected (NotDetected)
[2019-04-08 03:28] LABS: Medtox Control Line Valid? VALID (VALID)
[2019-04-08 03:44] LABS: Creatinine, Urine 164.18 mg/dL (47-110)
[2019-04-08] MEDS ORDERED: Lactated Ringer's 500 ML IV PRN (03:54)
[2019-04-08] MEDS ORDERED: diphenhydrAMINE 50 MG/ML VIAL IVP PRN (03:54)
[2019-04-08] MEDS ORDERED: Naloxone HCl 0.4 mg/ml Vial IVP PRN ×2 (03:54)
[2019-04-08] MEDS ORDERED: Ondansetron PF 4 MG/2 ML Vial IVP PRN ×2 (03:54→21:05)
[2019-04-08] MEDS ORDERED: Promethazine HCl 25 MG/ML VIAL IM PRN (03:54)
[2019-04-08] MEDS ORDERED: ePHEDrine/0.9% NaCl/PF SYRINGE 50 mg/10 ml SLOW IVP PRN (03:54)
[2019-04-08] MEDS ORDERED: Communication Order-Pharmacy FS SCH (04:00)
[2019-04-08] MEDS ORDERED: Fentanyl 4 mcg/Bupivacaine 0.1% Cassette 100 ML EPIDURAL SCH (04:00)
[2019-04-08 04:30] LABS: Syphilis Antibody Nonreactive (Nonreactive); Syphilis Antibody Index 0.04 S/CO (<1.00 Non-Reactive)
--- NOTE | 2019-04-08 04:59 | PDOC.LDPN ---
Labor & Delivery Progress Note - Subjective Subjective: comfortable - Objective Vital signs reviewed and normal: yes General: NAD, resting Uterine fundus: non tender SVE: /-3 FHT: category 1, variability present [place] contractions every: 2-4min - Assessment (1) Pre-eclampsia, severe, third trimester Code(s): O14.13 - SEVERE PRE-ECLAMPSIA, THIRD TRIMESTER Current Visit: Yes Status: Acute (2) High-risk in third trimester Code(s): O09.93 - SUPERVISION OF HIGH RISK , UNSP, THIRD TRIMESTER Current Visit: No Status: Acute (3) [place]'s disease Code(s): E27.1 - PRIMARY ADRENOCORTICAL INSUFFICIENCY Current Visit: No Status: Chronic (4) Bipolar 1 disorder Code(s): F31.9 - BIPOLAR DISORDER, UNSPECIFIED Current Visit: No Status: Chronic (5) Cholestasis during Code(s): O26.619 - LIVER AND BILIARY TRACT DISORD IN , UNSP TRIMESTER; K83.1 - OBSTRUCTION OF BILE DUCT Current Visit: No Status: Chronic Qualifiers: (6) Genital herpes affecting in third trimester Code(s): O98.313 - OTH INFECT W SEXL MODE OF TRANSMISS COMP PREG, THIRD TRI; A60.09 - HERPESVIRAL INFECTION OF OTHER UROGENITAL TRACT Current Visit: No Status: Chronic Plan: continue plan of care -: Patient is a 33F @ 37wga by 10.3wk carson admitted to L&D for pre-e with severe features and labor #sIUP in latent labor, high-risk -reactive strip -ctx q 2-4min -/-3 @ 0415 -GBS neg, no abx indicated at this time -epidural placed -VP3 pending for some mild white discharge -patient has endorsed some nausea and had 2 bouts of emesis; received zofran and has had some small sips of cy matthew which she reports have helped -will continue to monitor strip and continue cervical checks #Pre-eclampsia with severe features -BP well controlled s/p 2 doses hydralazine and epidural, will continue to monitor BP -patient reports that she has had elevated BP throughout this -reports of DAVID the last 3 days, "floaters" in vision for last several weeks -CBC, CMP, urine protein/creatinine wnl -magnesium check shows normal reflexes, no respiratory depression, patient tolerating mag well -q4h mag checks #Addisons Disease -patient's home meds held at this time -started on 25mg hydrocortisone IV q6h, will give 100mg hydrocortisone IV close to delivery #Hx of genital herpes -has reportedly been taking acyclovir -speculum exam does not show any active lesions at this time -will proceed with vaginal delivery #Psychiatric Hx (Anxiety, Depression, Bipolar 1 Disorder) -will continue lamictal -will monitor closely for ppd #Hx of marijuana use -UDS neg #GERD -continue home medications #Cholestasis of -patient not complaining of RUQ pain at this time -continue home meds DVT ppx: none Diet: NPO, small sips of liquids Dispo: admitted to L&D for latent labor; pre-e labs wnl; reactive strip, normal reflexes; will continue cervical checks, mag checks, and continue to monitor FHT Code: Full PCP: Yina at [facility] The case has been discussed by and the patient has been evaluated by Dr. Chakraborty and Dr. Blas who are in agreement with the plan of care. Addendum - Attending - Attending Attestation Date/Time: 04/08/19 4811 I personally evaluated the patient and discussed the management with Dr. Gomez. I agree with the History, Examination, Assessment and Plan documented above with any addition or exceptions noted below.
[2019-04-08] MEDS: Hydrocortisone Sod Succ/PF 100 mg/2 ml Vial IVP SCH ×2 (05:07→11:56)
[2019-04-08] MEDS ORDERED: Hydrocortisone 10 mg Tablet PO SCH ×3 (07:00→16:00)
[2019-04-08] MEDS ORDERED: NS w/ Oxytocin 10 units 500 ML ONE (08:36)
[2019-04-08] MEDS ORDERED: NS w/ Oxytocin 10 units 500 ML IV SCH (08:45)
--- NOTE | 2019-04-08 08:52 | PDOC.LDPN ---
Labor & Delivery Progress Note - Subjective Subjective: comfortable - Objective Vital signs reviewed and normal: yes General: NAD, resting Uterine fundus: non tender SVE: 7:50 Dilation: 5 Effacement: 25% Station: -3 FHT: category 1, variability present [place] contractions every: q2-4 min - Assessment (1) Adrenal insufficiency Code(s): E27.40 - UNSPECIFIED ADRENOCORTICAL INSUFFICIENCY Current Visit: Yes Status: Acute (2) Pre-eclampsia, severe, third trimester Code(s): O14.13 - SEVERE PRE-ECLAMPSIA, THIRD TRIMESTER Current Visit: Yes Status: Acute (3) Gestational HTN Code(s): O13.9 - GESTATIONAL HTN W/O SIGNIFICANT PROTEINURIA, UNSP TRIMESTER Current Visit: No Status: Acute Qualifiers: Trimester: third trimester Qualified Code(s): O13.3 - Gestational [ -induced] hypertension without significant proteinuria, third trimester (4) High-risk in third trimester Code(s): O09.93 - SUPERVISION OF HIGH RISK , UNSP, THIRD TRIMESTER Current Visit: No Status: Acute (5) Bipolar 1 disorder Code(s): F31.9 - BIPOLAR DISORDER, UNSPECIFIED Current Visit: No Status: Chronic (6) Genital herpes affecting in third trimester Code(s): O98.313 - OTH INFECT W SEXL MODE OF TRANSMISS COMP PREG, THIRD TRI; A60.09 - HERPESVIRAL INFECTION OF OTHER UROGENITAL TRACT Current Visit: No Status: Chronic (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 Patient not on any augmentation. Will start pitocin. BP's WNL. Category I strip. Contiue Mg. Patient has received increased dose of steroids during labor process. Will need 100 mg of hydrocortisone at delivery. Patient continues to be symptomatic with headache. Will give one dose of stadol. Explained effects stadol can have on baby as it gets closer to delivery. Addendum - Attending - Attending Attestation Date/Time: 04/08/19 8544 I personally evaluated the patient and discussed the management with Dr. Aviles. I agree with the History, Examination, Assessment and Plan documented above with any addition or exceptions noted below.
[2019-04-08] MEDS ORDERED: Acyclovir 400 mg Tablet PO SCH (09:00)
[2019-04-08] MEDS ORDERED: lamoTRIgine 100 MG TAB PO SCH (09:00)
[2019-04-08] MEDS: Ursodiol 300 MG CAP PO SCH ×3 (09:04→18:53)
[2019-04-08] MEDS ORDERED: NS / Oxytocin 40 units/1000ml 1,000 ML ONE (10:46)
[2019-04-08] MEDS ORDERED: Lidocaine 1% (PF) 30 ML VIAL ONE (10:46)
[2019-04-08] MEDS ORDERED: Carboprost 250 MCG/ML AMP ONE (10:47)
[2019-04-08] MEDS ORDERED: Misoprostol 200 MCG TAB ONE (10:47)
--- NOTE | 2019-04-08 10:52 | PDOC.LDPN ---
Labor & Delivery Progress Note - Subjective Subjective: comfortable - Objective Vital signs reviewed and normal: yes General: NAD, resting Uterine fundus: non tender SVE: 10:30 Dilation: 5 Effacement: 75% Station: -2 FHT: category 1, variability present [place] contractions every: q2-3 min AROM: clear fluid IUPC placed: yes - Assessment (1) Adrenal insufficiency Code(s): E27.40 - UNSPECIFIED ADRENOCORTICAL INSUFFICIENCY Current Visit: Yes Status: Acute (2) Pre-eclampsia, severe, third trimester Code(s): O14.13 - SEVERE PRE-ECLAMPSIA, THIRD TRIMESTER Current Visit: Yes Status: Acute (3) Gestational HTN Code(s): O13.9 - GESTATIONAL HTN W/O SIGNIFICANT PROTEINURIA, UNSP TRIMESTER Current Visit: Yes Status: Acute Qualifiers: Trimester: third trimester Qualified Code(s): O13.3 - Gestational [ -induced] hypertension without significant proteinuria, third trimester (4) High-risk in third trimester Code(s): O09.93 - SUPERVISION OF HIGH RISK , UNSP, THIRD TRIMESTER Current Visit: Yes Status: Acute (5) Bipolar 1 disorder Code(s): F31.9 - BIPOLAR DISORDER, UNSPECIFIED Current Visit: Yes Status: Chronic (6) Genital herpes affecting in third trimester Code(s): O98.313 - OTH INFECT W SEXL MODE OF TRANSMISS COMP PREG, THIRD TRI; A60.09 - HERPESVIRAL INFECTION OF OTHER UROGENITAL TRACT Current Visit: Yes Status: Chronic (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 Cervical exam at 10:30 5/ 75/-2. AROM large amount of clear fluid. IUPC placed. Will titrate pitocin to adequate MVU's (>200). Of note, noted to be macrosomic (>95%tile hadlock ; EFW 3824g on 03/31 at 36 WGA) on ultrasound done 1 week ago. Pelvis proven for 8 pound 3 oz . Must be prepared for possibility of shoulder dystocia and would avoid use of vacuum given macrosomia. Given grandmultiparity, would also be prepared for possibility of PPH. Avoid use of methergine given severe range pressures. BP's since starting Mg and s/p two doses of hydralazine at start of induction have been WNL. Continue to monitor closely.
[2019-04-08] MEDS: Acetaminophen 325 MG TAB PO PRN (12:08)
[2019-04-08] MEDS ORDERED: Hydrocortisone Sod Succ/PF 100 mg/2 ml Vial IVP SCH (13:00)
--- NOTE | 2019-04-08 13:44 | PDOC.LDPN ---
Labor & Delivery Progress Note - Subjective Subjective: comfortable - Objective Vital signs reviewed and normal: yes General: NAD, resting, other Uterine fundus: non tender SVE: 13:10 Dilation: 6 Effacement: 75% Station: -2 FHT: category 1, variability present [place] contractions every: q2-4 min - Assessment (1) Adrenal insufficiency Code(s): E27.40 - UNSPECIFIED ADRENOCORTICAL INSUFFICIENCY Current Visit: Yes Status: Acute (2) Pre-eclampsia, severe, third trimester Code(s): O14.13 - SEVERE PRE-ECLAMPSIA, THIRD TRIMESTER Current Visit: Yes Status: Acute (3) Gestational HTN Code(s): O13.9 - GESTATIONAL HTN W/O SIGNIFICANT PROTEINURIA, UNSP TRIMESTER Current Visit: Yes Status: Acute Qualifiers: Trimester: third trimester Qualified Code(s): O13.3 - Gestational [ -induced] hypertension without significant proteinuria, third trimester (4) High-risk in third trimester Code(s): O09.93 - SUPERVISION OF HIGH RISK , UNSP, THIRD TRIMESTER Current Visit: Yes Status: Acute (5) Bipolar 1 disorder Code(s): F31.9 - BIPOLAR DISORDER, UNSPECIFIED Current Visit: Yes Status: Chronic (6) Genital herpes affecting in third trimester Code(s): O98.313 - OTH INFECT W SEXL MODE OF TRANSMISS COMP PREG, THIRD TRI; A60.09 - HERPESVIRAL INFECTION OF OTHER UROGENITAL TRACT Current Visit: Yes Status: Chronic (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 Noted to be 6/75 /-2 at that time. MVU's adequate (>200) since approximately 11:00 AM. Recheck at 13:10 without change. We are at 2 hours now with no cervical change and adequate MVU's. Patient with some back pain and not wanting to sit straight up currently. Will encourage positional changes. Discussed options should patient not make cervical change in the next 2 hours (4 hours total) despite adequate MVU's. Will recheck again in 2 hours and continue to titrate pitocin to ensure adequate MVU's.
[2019-04-08] MEDS ORDERED: Diphenoxylate HCl/Atropine Tablet PO PRN ×2 (15:56→21:05)
[2019-04-08] MEDS ORDERED: Diphenoxylate HCl/Atropine Tablet PO SCH (16:00)
--- NOTE | 2019-04-08 16:23 | PDOC.BPN ---
- Brief Progress Note Attending Delivery note. See separate residents delivery documentation for details. I was present for and assisted with the of the patient. Live, vigorous, female infant. Mother and infant in stable condition.
[2019-04-08] MEDS ORDERED: Aspirin/APAP/Caffeine Tab (Excedrin Migraine) PO SCH (16:30)
--- NOTE | 2019-04-08 16:40 | PDOC.OPDEL ---
OB Operative/Delivery Note Delivery Dr/Surgeon: Traci/Tiffany; Attending: Wan Pre-Delivery Diagnosis: active labor Procedure/Post Delivery Dx: spontaneous vaginal delivery Anesthesia: epidural - Additional Findings/Plan Placenta delivered: spontaneous Repaired Obstetrical Laceration: none Estimated blood loss: QBL 750 ml Compilations/Other Findings: This is 33 yo F @ 37.2 wks who delivered a viable F at 1527 on . Following an uneventful antepartum course, a vigorous female was delivered over an intact perineum in the left occipitoanterior position. Anterior Shoulder and then remainder of the body delivered. No nuchal cord. The head was held down and mouth and nares were bulb suctioned. Cord clamped and cut and cord blood collected. Placenta delivered intact in the [place] presentation with a 3 vessel cord noted. Fundal massage was performed and the fundus was firm. Cytotec, pitocin, and hemabate were administered to assist in firming uterus. The vagina was inspected and found to be free of lacerations. Infant went to nursery in good condition for routine care. Apgars were 5 /9 at 1 & 5 minutes, respectively. Patient tolerated delivery well and went to after routine recovery/care. Of note, patient was administered Hydrocortisone 100 mg IV at the time of delivery for stress dosing secondary to [place]'s Disease. Agapito Allen, 04/08/19 1640 Post delivery plan: routine recovery Addendum - Attending - Attending Attestation Date/Time: 04/09/19 1031 I personally supervised anf assisted with the .
--- NOTE | 2019-04-08 20:50 | PDOC.BPN ---
<Rose Gomez - Last Filed: 04/08/19 20:37> - Brief Progress Note S: patient doing well on mag. Denies any cp/respiratory issues at this time. Reports of an intermittent DAVID. O: BP mostly 130s-140s/80s, one pressure 165/76. Reflexes 2+ BUE and BLE A: 33F >P6, came in early this morning with ctx. Was found to have severe pressures and diagnosed with pre-e with severe features and started on mag. today at 15:27 P: Continue q4h mag checks. Mag to continue until until 15:30 on 04/09. PRN HTN meds for elevated BP. Tylenol for DAVID, will continue to monitor. <Asher Hernandez - Last Filed: 04/09/19 05:02> Addendum - Attending - Attending Attestation Date/Time: 04/09/19 0503 I personally evaluated the patient and discussed the management with Dr. Gomez. I agree with the History, Examination, Assessment and Plan documented above with any addition or exceptions noted below.
[2019-04-08] MEDS ORDERED: FLU VACC QS2019-20(6MOS UP)/PF 60 MCG/0.5 ML SYRINGE IM ONE (21:00)
[2019-04-08] MEDS ORDERED: Preparation H Ointment 28 GM TUBE PR PRN (21:05)
[2019-04-08] MEDS ORDERED: Lanolin Ointment 7 GM TUBE TOP PRN (21:05)
[2019-04-08] MEDS ORDERED: Milk Of Magnesia 30 ML UDCUP PO PRN (21:05)
[2019-04-08] MEDS ORDERED: Bisacodyl 10 MG SUPP PR PRN (21:05)
[2019-04-08] MEDS ORDERED: Magnesium Sulfate 20 GM in Dextrose 5% in Water 460 ML IVPB SCH (21:05)
[2019-04-08] MEDS ORDERED: Calcium Gluconate 4.6 MEQ in Sodium Chloride 0.9% 100 ML IVPB PRN (21:05)
[2019-04-08] MEDS ORDERED: Benzocaine-Menthol 82.5 ML CAN TOP PRN (21:05)
[2019-04-08] MEDS ORDERED: RIZATRIPTAN BENZOATE 5 MG PO PRN (21:05)
[2019-04-08] MEDS ORDERED: diphenhydrAMINE 25 MG CAP PO PRN (21:05)
[2019-04-08] MEDS ORDERED: NS / Oxytocin 40 units/1000ml 1,000 ML IV SCH (21:05)
[2019-04-08] MEDS: metroNIDAZOLE 500 MG TAB PO SCH (21:41)
[2019-04-08] MEDS: Hydrocortisone 10 mg Tablet PO SCH (21:41)
[2019-04-08] MEDS: Docusate Calcium (SURFAK) 240 MG CAP PO SCH (21:49)
[2019-04-08] MEDS: SUMAtriptan Succinate 50 MG TAB PO PRN (21:49)
[2019-04-08] MEDS: Ferrous Sulfate 325 MG TAB PO SCH (22:11)
[2019-04-08] MEDS ORDERED: Dicyclomine 20 MG TAB PO SCH (23:45)
--- NOTE | 2019-04-09 00:03 | PDOC.BPN ---
- Brief Progress Note S: patient continues to do well on mag. Denies any cp/respiratory issues at this time. Reports of an intermittent DAVID, improved with imatrex. Patient has intractable abdominal and back pain not responsive to ibp/tylenol. O: BP mostly 120s-150s/80s, two pressures 160s/80s. Reflexes 2+ A: 33F >P6, came in early this morning with ctx. Was found to have severe pressures and diagnosed with pre-e with severe features and started on mag. today at 15:27 P: Continue q4h mag checks. Mag to continue until until 15:30 on 04/09. PRN HTN meds for elevated BP. Tylenol for DAVID, will continue to monitor. Will give 1x dose of norco for now to see if this can help patient's abd/back pain. Aware of caution needed for this patient with hx of marijuana and benzo use.
[2019-04-09] MEDS ORDERED: HYDROcodone/Acetaminophen 5/325 mg Tablet PO ONE ×2 (00:30→06:35)
[2019-04-09] MEDS ORDERED: Melatonin 3 MG TAB PO PRN (02:23)
[2019-04-09] MEDS ORDERED: Cyclobenzaprine 10 MG TAB PO SCH (02:45)
[2019-04-09] MEDS: Ibuprofen 800 MG TAB PO SCH ×4 (06:02→21:06)
[2019-04-09 06:31] LABS: Hemoglobin 9.3 g/dL (12.0-16.0); Mean Corpuscular HGB CONC 33.1 g/dL (32.0-36.0); Mean Corpuscular Hemoglobin 29.1 pg (27.0-31.0); Mean Corpuscular Volume 87.8 fL (78.0-98.0); Mean Platelet Volume 7.9 fL (7.4-10.4); Platelet Count 288 thou/uL (130-400); RBC Distribution Width 13.8 % (11.5-14.5); White Blood Cell (WBC) Count 13.1 thou/uL (4.8-10.8)
[2019-04-09] MEDS: Hydrocortisone 10 mg Tablet PO SCH ×3 (08:09→20:03)
[2019-04-09] MEDS: lamoTRIgine 100 MG TAB PO SCH (08:09)
[2019-04-09] MEDS ORDERED: Dicyclomine 20 MG TAB PO SCH (09:00)
[2019-04-09] MEDS ORDERED: Adacel (T-DAP) 0.5 ML SYRINGE IM ONE (09:00)
--- NOTE | 2019-04-09 09:28 | PDOC.PP ---
Post Progress Note Post Day #: 1 Subjective: Patient doing well this AM. She feels groggy due to the magnesium. She states she is tired. She states lochia is less than period. Patient denies chest pain, shortness of breath, cough, or swelling. PO intake tolerated: yes Flatus: yes Ambulation: yes Vital Signs (12 hours) Pulse BP 04/08/19 23:14 98 167/101 H Weight Weight 102.512 kg - Physical Examination General: NAD Cardiovascular: RRR Respiratory: non-labored breathing Abdominal: + bowel sounds, lochia (like period), no distention, appropriately TTP Fundus firm & at: below umbilicus Skin: no rash Neurological: no gross focal deficits Psychiatric: A&Ox3, normal affect Result Diagrams: 04/09/19 05:45 04/08/19 01:32 Additional Labs: Post Labs Blood Type O NEGATIVE 04/08/19 01:32 Hep Bs Antigen Non-Reactive S/CO (NonReactive) 04/08/19 01:32 (1) Adrenal insufficiency Code(s): E27.40 - UNSPECIFIED ADRENOCORTICAL INSUFFICIENCY Status: Acute (2) Pre-eclampsia, severe, third trimester Code(s): O14.13 - SEVERE PRE-ECLAMPSIA, THIRD TRIMESTER Status: Acute (3) Gestational HTN Code(s): O13.9 - GESTATIONAL HTN W/O SIGNIFICANT PROTEINURIA, UNSP TRIMESTER Status: Acute Qualifiers: Trimester: third trimester Qualified Code(s): O13.3 - Gestational [ -induced] hypertension without significant proteinuria, third trimester (4) High-risk in third trimester Code(s): O09.93 - SUPERVISION OF HIGH RISK , UNSP, THIRD TRIMESTER Status: Acute (5) Bipolar 1 disorder Code(s): F31.9 - BIPOLAR DISORDER, UNSPECIFIED Status: Chronic (6) Genital herpes affecting in third trimester Code(s): O98.313 - OTH INFECT W SEXL MODE OF TRANSMISS COMP PREG, THIRD TRI; A60.09 - HERPESVIRAL INFECTION OF OTHER UROGENITAL TRACT Status: Chronic (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 States she does not plan to have any more babies and does not feel it is necessary. Counseled that if she were to become again despite it being planned, it could be dangerous for her unborn child. Patient states plans to get vasectomy. - Rubella immune - Lochia minimal - Hg 12 --> 9.3 (received hemabate and cytotec in immediate PP period) Pre-E severe features - Based on symptoms and BP >160/110 - Patient on Mg for 24 hours PP, Mg to be d/c'd at appx 15:00 if BP's appear well controlled - BP high to 167/101 x1. No additional BP's noted >160/110. BP's ranging from systolic 120's-150's. - Continue to monitor BP's. If BP's remain in 150's range, may consider addition of oral medication. Adrenal insufficiency - Suspect iatrogenic - Patient received stress dose of steroids at delivery - Restarted on home regimen - Patient recently established with new simulation educator, recommend close follow up Bipolar I - On lamictal - Patient stopped taking seroquel months ago - No high risk behaviors Pott's disease - Pulse well controlled - Not currently following with Cardiology , but [facility] - Did not show up for many care visits Rh negative - States she got rhogam at [facility] around 28 weeks, but antibody screen negative - Encouraged patient to get rhogam again prior to delivery, but she declined stating she does not plan on getting again and will not get the shot. She desires tubal or to get vasectomy. - Patient refused rhogam again in PP period for same reasons stated above. Will continue to discuss. Dispo: Transfer out of LICU around 15:00 today if BP's appear well controlled. Anticipate d/c in next 48 hours. Addendum - Attending - Attending Attestation Date/Time: 04/09/19 1044 I personally evaluated the patient and discussed the management with Dr. Aviles. I agree with the History, Examination, Assessment and Plan documented above with any addition or exceptions noted below.
[2019-04-09] MEDS: metroNIDAZOLE 500 MG TAB PO SCH ×2 (09:30→21:06)
[2019-04-09] MEDS: Prenatal Vitamin 1 TAB PO SCH (09:30)
[2019-04-09] MEDS: Docusate Calcium (SURFAK) 240 MG CAP PO SCH ×2 (09:30→21:05)
[2019-04-09] MEDS: Ferrous Sulfate 325 MG TAB PO SCH ×2 (10:14→18:33)
[2019-04-09] MEDS: Acetaminophen 325 MG TAB PO PRN ×2 (10:37→21:06)
--- NOTE | 2019-04-09 10:40 | PDOC.BPN ---
- Brief Progress Note S: Pt states she has lower abdominal pain that is exacerbated by movement. Denies SOB, DAVID. O: vitals: BP 149/86, HR 95 Gen: NAD, resting upon entry to room. Lungs: CTAB, no respiratory distress Cardiac: RRR, no murmur Extremities: DTR's 2+ at elbows and knees. No peripheral edema. A&P: Pre-E with severe features, continue mag for 24 hours ,will d/c at 15:00 today. Q4H mag check. Pt stable at this time.
[2019-04-09] MEDS: SUMAtriptan Succinate 50 MG TAB PO PRN (15:55)
[2019-04-09] MEDS ORDERED: NS / Oxytocin 40 units/1000ml 1,000 ML IV SCH (19:05)
[2019-04-10] MEDS: Acetaminophen 325 MG TAB PO PRN ×2 (01:00→05:32)
[2019-04-10] MEDS: Ibuprofen 800 MG TAB PO SCH ×3 (05:31→23:06)
[2019-04-10] MEDS: metroNIDAZOLE 500 MG TAB PO SCH ×2 (09:36→20:49)
[2019-04-10] MEDS: Ferrous Sulfate 325 MG TAB PO SCH ×2 (09:36→18:15)
[2019-04-10] MEDS: Docusate Calcium (SURFAK) 240 MG CAP PO SCH ×2 (09:36→20:49)
[2019-04-10] MEDS: Prenatal Vitamin 1 TAB PO SCH (09:36)
[2019-04-10] MEDS: lamoTRIgine 100 MG TAB PO SCH (09:37)
[2019-04-10] MEDS: Hydrocortisone 10 mg Tablet PO SCH ×3 (09:39→20:49)
--- NOTE | 2019-04-10 17:43 | PDOC.PP ---
Post Progress Note Post Day #: 2 Subjective: Patient doing well. No significant overnight events. States lochia has been least amount of any . Ambulating. Tolerating PO. PO intake tolerated: yes Flatus: yes Ambulation: yes Vital Signs (12 hours) Temp Pulse Resp BP Pulse Ox 04/10/19 11:36 98.4 F 94 20 140/82 04/10/19 08:00 98.7 F 83 20 134/78 97 Weight Weight 102.512 kg - Physical Examination General: NAD Cardiovascular: RRR Respiratory: non-labored breathing Abdominal: + bowel sounds, lochia (minimal), no distention, appropriately TTP Fundus firm & at: below umbilicus Skin: no rash Neurological: no gross focal deficits Psychiatric: A&Ox3, normal affect Result Diagrams: 04/09/19 05:45 04/08/19 01:32 Additional Labs: Post Labs Blood Type O NEGATIVE 04/08/19 01:32 Hep Bs Antigen Non-Reactive S/CO (NonReactive) 04/08/19 01:32 (1) Adrenal insufficiency Code(s): E27.40 - UNSPECIFIED ADRENOCORTICAL INSUFFICIENCY Status: Acute (2) Pre-eclampsia, severe, third trimester Code(s): O14.13 - SEVERE PRE-ECLAMPSIA, THIRD TRIMESTER Status: Acute (3) Gestational HTN Code(s): O13.9 - GESTATIONAL HTN W/O SIGNIFICANT PROTEINURIA, UNSP TRIMESTER Status: Acute Qualifiers: Trimester: third trimester Qualified Code(s): O13.3 - Gestational [ -induced] hypertension without significant proteinuria, third trimester (4) High-risk in third trimester Code(s): O09.93 - SUPERVISION OF HIGH RISK , UNSP, THIRD TRIMESTER Status: Acute (5) Bipolar 1 disorder Code(s): F31.9 - BIPOLAR DISORDER, UNSPECIFIED Status: Chronic (6) Genital herpes affecting in third trimester Code(s): O98.313 - OTH INFECT W SEXL MODE OF TRANSMISS COMP PREG, THIRD TRI; A60.09 - HERPESVIRAL INFECTION OF OTHER UROGENITAL TRACT Status: Chronic (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 States she does not plan to have any more babies and does not feel it is necessary. Counseled that if she were to become again despite it being planned, it could be dangerous for her unborn child. Patient states plans to get vasectomy. - Rubella immune - Lochia minimal - Hg 12 --> 9.3 (received hemabate and cytotec in immediate PP period) Pre-E severe features - Based on symptoms and BP >160/110 - BP's well controlled in last 24 hours. Systolic high to 140. - BP at 17:45 with systolic 160. Will repeat in 15 minutes. Observe overnight. Adrenal insufficiency - Suspect iatrogenic - Patient received stress dose of steroids at delivery - Restarted on home regimen - Patient recently established with new funder, recommend close follow up Bipolar I - On lamictal - Patient stopped taking seroquel months ago - No high risk behaviors Pott's disease - Pulse well controlled - Not currently following with Cardiology [facility] - Did not show up for many care visits Rh negative - States she got rhogam at [facility] around 28 weeks, but antibody screen negative - Encouraged patient to get rhogam again prior to delivery, but she declined stating she does not plan on getting again and will not get the shot. She desires tubal or to get vasectomy. - Patient refused rhogam again in PP period for same reasons stated above. Will continue to discuss. Dispo: Monitor BP overnight. Plan for d/c home tomorrow. Addendum - Attending - Attending Attestation Date/Time: 04/11/19 8743 I personally evaluated the patient and discussed the management with Dr. Aviles yesterday morning. I agree with the History, Examination, Assessment and Plan documented above with any addition or exceptions noted below.
[2019-04-10] MEDS ORDERED: hydrALAZINE 20 MG/ML VIAL SLOW IVP PRN (17:45)
[2019-04-11] MEDS: Acetaminophen 325 MG TAB PO PRN (00:44)
[2019-04-11] MEDS: Ibuprofen 800 MG TAB PO SCH ×3 (06:01→20:56)
--- NOTE | 2019-04-11 07:01 | PDOC.PP ---
Post Progress Note Post Day #: 3 Subjective: Patient doing well. No significant overnight events. Lochia minimal. Tolerating PO. PO intake tolerated: yes Flatus: yes Ambulation: yes Vital Signs (12 hours) Temp Pulse Resp BP Pulse Ox 04/11/19 06:38 141/88 H 04/11/19 06:23 98.6 F 90 16 150/87 H 98 04/11/19 06:21 155/95 H 04/11/19 06:03 164/94 H 04/11/19 05:57 169/100 H 04/11/19 00:37 98.0 F 82 16 136/85 97 04/10/19 19:29 98.6 F 83 16 147/87 H 97 Weight Weight 102.512 kg - Physical Examination General: NAD Cardiovascular: RRR Respiratory: non-labored breathing Abdominal: + bowel sounds, lochia (Minimal), no distention, appropriately TTP Fundus firm & at: below umbilicus Skin: no rash Neurological: no gross focal deficits Psychiatric: normal affect Result Diagrams: 04/09/19 05:45 04/08/19 01:32 Additional Labs: Post Labs Blood Type O NEGATIVE 04/08/19 01:32 Hep Bs Antigen Non-Reactive S/CO (NonReactive) 04/08/19 01:32 (1) Adrenal insufficiency Code(s): E27.40 - UNSPECIFIED ADRENOCORTICAL INSUFFICIENCY Status: Acute (2) Pre-eclampsia, severe, third trimester Code(s): O14.13 - SEVERE PRE-ECLAMPSIA, THIRD TRIMESTER Status: Acute (3) Gestational HTN Code(s): O13.9 - GESTATIONAL HTN W/O SIGNIFICANT PROTEINURIA, UNSP TRIMESTER Status: Acute Qualifiers: Trimester: third trimester Qualified Code(s): O13.3 - Gestational [ -induced] hypertension without significant proteinuria, third trimester (4) High-risk in third trimester Code(s): O09.93 - SUPERVISION OF HIGH RISK , UNSP, THIRD TRIMESTER Status: Acute (5) Bipolar 1 disorder Code(s): F31.9 - BIPOLAR DISORDER, UNSPECIFIED Status: Chronic (6) Genital herpes affecting in third trimester Code(s): O98.313 - OTH INFECT W SEXL MODE OF TRANSMISS COMP PREG, THIRD TRI; A60.09 - HERPESVIRAL INFECTION OF OTHER UROGENITAL TRACT Status: Chronic (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 States she does not plan to have any more babies and does not feel it is necessary. Counseled that if she were to become again despite it being planned, it could be dangerous for her unborn child. Patient states plans to get vasectomy. - Rubella immune - Lochia minimal - Hg 12 --> 9.3 (received hemabate and cytotec in immediate PP period) Pre-E severe features - Based on symptoms and BP >160/110 - BP's overnight and this AM in 150's-160's range systolic - Discussed options with patient. Discussed starting BP medication and monitoring until this afternoon. Patient agreeable to starting low dose of medication to avoid having problems with BP at home. Will start low dose of nifedipine as it is only dosed once a day. Patient agreeable. - Monitor BP closely this AM, possible d/c home later today Adrenal insufficiency - Suspect iatrogenic - Patient received stress dose of steroids at delivery - Restarted on home regimen - Patient recently established with new senior director insight, recommend close follow up Bipolar I - On lamictal - Patient stopped taking seroquel months ago - No high risk behaviors Pott's disease - Pulse well controlled - Not currently following with Cardiology [facility] - Did not show up for many care visits Rh negative - States she got rhogam at [facility] around 28 weeks, but antibody screen negative - Encouraged patient to get rhogam again prior to delivery, but she declined stating she does not plan on getting again and will not get the shot. She desires tubal or to get vasectomy. - Patient refused rhogam again in PP period for same reasons stated above. Will continue to discuss. Dispo: Monitor BP. Plan for possible d/c this afternoon if BP well controlled on medication. Addendum - Attending - Attending Attestation Date/Time: 04/11/19 [id number] I personally evaluated the patient and discussed the management with Dr. Aviles. I agree with the History, Examination, Assessment and Plan documented above with any addition or exceptions noted below.
[2019-04-11] MEDS ORDERED: NIFEdipine XL 30 MG TAB PO SCH (07:15)
[2019-04-11] MEDS: metroNIDAZOLE 500 MG TAB PO SCH ×2 (08:22→20:56)
[2019-04-11] MEDS: Prenatal Vitamin 1 TAB PO SCH (08:22)
[2019-04-11] MEDS: Ferrous Sulfate 325 MG TAB PO SCH ×2 (08:22→17:28)
[2019-04-11] MEDS: Docusate Calcium (SURFAK) 240 MG CAP PO SCH ×2 (08:22→20:56)
[2019-04-11] MEDS: Hydrocortisone 10 mg Tablet PO SCH ×3 (08:23→20:56)
[2019-04-11] MEDS: lamoTRIgine 100 MG TAB PO SCH (08:23)
[2019-04-11 19:08] VITALS: TEMP 98.4
[2019-04-11 20:52] VITALS: BP 138/86
== END 2019-04-11 20:50 | disposition home or self-care (01) | DRG 805 ==
LOC: L&D/OP 23:57 → L&D 04-08 02:08 → 3SW 04-09 19:08
PROVIDERS: ADMIT Student in an Organized Health Care Education/Training Program; ATTEND Student in an Organized Health Care Education/Training Program
PROC: 10E0XZZ Delivery of Products of Conception, External Approach (ICD-10-PCS; principal; 2019-04-08)
PROC: 10907ZC Drainage of Amniotic Fluid, Therapeutic from Products of Conception, Via Natural or Artificial Opening (ICD-10-PCS; 2019-04-08)
PROC: 10H07YZ Insertion of Other Device into Products of Conception, Via Natural or Artificial Opening (ICD-10-PCS; 2019-04-08)
DX: O14.14 Severe pre-eclampsia complicating childbirth (principal); K83.1 Obstruction of bile duct; Z37.0 Single live birth; Z3A.37 37 weeks gestation of pregnancy; O98.52 Other viral diseases complicating childbirth; E27.1 Primary adrenocortical insufficiency; A18.01 Tuberculosis of spine; O98.813 Other maternal infectious and parasitic diseases complicating pregnancy, third trimester; B00.9 Herpesviral infection, unspecified; O99.343 Other mental disorders complicating pregnancy, third trimester; F41.9 Anxiety disorder, unspecified; F31.9 Bipolar disorder, unspecified; O99.283 Endocrine, nutritional and metabolic diseases complicating pregnancy, third trimester; O99.613 Diseases of the digestive system complicating pregnancy, third trimester; K21.9 Gastro-esophageal reflux disease without esophagitis; O26.613 Liver and biliary tract disorders in pregnancy, third trimester; O26.893 Other specified pregnancy related conditions, third trimester; Z67.41 Type O blood, Rh negative; Z79.899 Other long term (current) drug therapy; Z28.21 Immunization not carried out because of patient refusal
CPT/HCPCS: 36415; 51702; 80053; 80306; 82570; 83735; 84156; 85027; 85461; 86780; 86850; 86900; 86901; 87340; 87480; 87510; 87660; 88307; 99285; J0360; J0595; J1200; J1720; J2001; J2405; J2550; J2590; J3010; J3475; J3490; J7070; S0020